=== PATIENT | male | born 1995 | race Caucasian/White ===

== ENCOUNTER → 2019-08-13 16:16 | Outpatient (CLI) | payer OTHER, SELFPAY ==
[2019-08-13 17:07] LABS: Absolute Lymphocyte Count 2.71 X10^3/uL (0.83-4.51); Absolute Neutrophil Count 4.6 X10^3/uL (2.0-7.7); Basophil# 0.07 X10^3/uL; Basophil% 0.9 % (0-1); Eosinophil# 0.21 X10^3/uL; Eosinophils% 2.6 % (0-5); Hematocrit 43.8 % (40-54); Hemoglobin 14.4 g/dL (13.0-16.5); Lymphocyte # 2.71 X10^3/ul (4.0); Lymphocyte % 33.5 % (19-41); Mean Corp Hgb Conc 32.9 g/dL (32-36); Mean Corpuscular Hgb 28.3 pg (27.0-32.0); Mean Corpuscular Volume 86.1 fL (80-94); Mean Platelet Vol. 9.1 fl (6.2-12.0); Monocyte# 0.52 X10^3/uL; Monocyte% 6.4 % (0-10); NRBC Flagged by Analyzer 0 % (0-5); Neutrophil # 4.55 X10^3/uL (2.7-7.7); Neutrophil % 56.1 % (47-70); Platelet Count 379 K/mm3 (150-450); Red Blood Count 5.09 M/mm3 (4.6-6.2); White Blood Count 8.1 K/mm3 (4.4-11.0)
[2019-08-13 18:03] LABS: T3 Total - Triiodothyronine 1.45 ng/mL (0.6-1.81); T4 Total, Thyroxin 10.6 ug/dL (4.5-12.1); Thyroid Stim Hormone (TSH) 1.34 uIU/mL (0.358-3.74)
== END ==
DX: R00.2 Palpitations (principal)
CPT/HCPCS: 36415; 84436; 84443; 84480; 85025

== ENCOUNTER → 2019-08-14 16:08 | Outpatient (CLI) | payer OTHER, SELFPAY ==
[2019-08-14 13:00] VITALS: BMI 37.4
== END ==
PROVIDERS: Referring Provider Specialist; Visit Provider Specialist
DX: I10 Essential (primary) hypertension (principal); R00.2 Palpitations; R06.02 Shortness of breath
CPT/HCPCS: 36415

== ENCOUNTER → 2019-08-17 10:08 | Outpatient (REF) | payer OTHER, SELFPAY ==
[2019-08-14 13:00] VITALS: BMI 37.4
== END ==
LOC: CVS 10:08
PROVIDERS: Referring Provider Specialist; Visit Provider Specialist
DX: R00.2 Palpitations (principal); R03.0 Elevated blood-pressure reading, without diagnosis of hypertension
CPT/HCPCS: 93270; 93271

== ENCOUNTER → 2019-08-23 13:48 | Outpatient (CLI) | payer OTHER, SELFPAY ==
[2019-08-14 13:00] VITALS: BMI 37.4
--- NOTE | 2019-08-23 13:49 | ECHOD_ITS ---
Reason For Study: Palps, HTN Procedure This was a 2D Doppler, Color Flow transthoracic echocardiogram. Exam performed in department. Left Ventricle Normal LV size. The estimated ejection fraction is 70 %. No evidence for diastolic dysfunction. No regional wall motion abnormalities noted. Right Ventricle Normal RV size. Normal systolic function. Atria Normal left atrium. Normal right atrium. No doppler evidence for ASD. Mitral Valve There is no mitral valve stenosis. No mitral valve insufficiency. Tricuspid Valve There is no tricuspid stenosis. Unable to estimate RV systolic pressure due to inadequate jet, pulmonary artery pressure probably normal. Aortic Valve Trisinus/trileaflet aortic valve. There is no aortic stenosis. No aortic valve insufficiency. Pulmonic Valve There is no pulmonic valvular stenosis. No pulmonic valve insufficiency. Great Vessels Normal aortic root. Pericardium/Pleural No pericardial effusion. MMode/2D Measurements & Calculations LVIDd: 5.1 cm IVSd: 0.99 cm Ao root diam: 2.9 cm LVIDs: 3.0 cm LVPWd: 1.2 cm RVDd: 3.5 cm FS: 41.3 % LAV(MOD-bp): 40.4 ml LA A4 area: 16.0 cm2 LA dimension(2D): 3.8 cm LAV(MOD-bp) Indexed: 17.1 ml/m2 LAV(MOD-sp2): 40.9 ml LAV(MOD-sp4): 38.8 ml RA A4 area: 15.1 cm2 Doppler Measurements & Calculations MV E max valdo: 85.4 cm/sec Lat Peak E' Valdo: 18.7 cm/sec Med Peak E' Valdo: 12.8 cm/sec MV A max valdo: 65.7 cm/sec E/E' lat: 4.6 E/E' med: 6.7 MV E/A: 1.3 Ao V2 max: 161.7 cm/sec LV V1 max: 141.3 cm/sec PA V2 max: 160.6 cm/sec Ao max P.5 mmHg LV V1 max P.0 mmHg Interpretation Summary The estimated ejection fraction is 70 %. No evidence for diastolic dysfunction. Ordering Physician: Bruce Gastelum Referring Physician: Bruce Gastelum Performed By: June Angulo, [facility]
== END ==
PROVIDERS: Referring Provider Specialist; Visit Provider Specialist
DX: I10 Essential (primary) hypertension (principal); R00.2 Palpitations
CPT/HCPCS: 93306

== ENCOUNTER → 2020-02-23 11:00 | Outpatient (CLI) | payer OTHER, SELFPAY ==
[2019-10-16 13:57] VITALS: BMI 38.2
[2020-02-23 11:37] LABS: Absolute Lymphocyte Count 2.29 X10^3/uL (0.83-4.51); Basophil# 0.06 X10^3/uL; Eosinophils% 3.3 % (0-5); Hematocrit 38.7 % (40-54); Hemoglobin 12.3 g/dL (13.0-16.5); Lymphocyte # 2.29 X10^3/ul (4.0); Lymphocyte % 37.5 % (19-41); Mean Corp Hgb Conc 31.8 g/dL (32-36); Mean Corpuscular Hgb 27.6 pg (27.0-32.0); Mean Corpuscular Volume 86.8 fL (80-94); Mean Platelet Vol. 9.2 fl (6.2-12.0); Monocyte# 0.58 X10^3/uL; Monocyte% 9.5 % (0-10); NRBC Flagged by Analyzer 0 % (0-5); Neutrophil # 2.97 X10^3/uL (2.7-7.7); Neutrophil % 48.5 % (47-70); Platelet Count 428 K/mm3 (150-450); RBC Distribution Width CV 13.2 % (11.6-14.6); RBC Distribution Width SD 40.4 fl (35.1-43.9); Red Blood Count 4.46 M/mm3 (4.6-6.2); White Blood Count 6.1 K/mm3 (4.4-11.0)
[2020-02-23 12:03] LABS: ALB/GLOB Ratio 1.2 RATIO (0.9-2.4); AST(SGOT) 29 U/L (15-37); Alanine Aminotransfer ALT/SGPT 63 U/L (16-61); Alkaline Phosphatase 66 U/L (45-117); Anion Gap 6 (5-15); BUN 12 mg/dL (7-18); BUN/Creat Ratio 15.2 RATIO (10-20); Chloride 109 mmol/L (98-107); Cholesterol 186 mg/dL (200); Creatinine, Serum 0.79 mg/dL (0.70-1.30); EST Glomerular Filtration Rate 128 mL/min (>60); Est Glom Filt Rate - Afr Amer 155 mL/min (>60); Globulin 3.3 g/dL (2.2-4.2); Glucose 102 mg/dL (74-106); High Density Lipoprotein 38 mg/dL; Potassium 3.9 mmol/L (3.5-5.1); Protein, Total 7.3 g/dL (6.4-8.2); Sodium Level 139 mmol/L (136-145); Triglycerides 89 mg/dL; Very Low Density Lipoprotein 18 mg/dL (5-40)
== END ==
DX: Z00.00 Encounter for general adult medical examination without abnormal findings (principal); I10 Essential (primary) hypertension
CPT/HCPCS: 36415; 80053; 80061; 85025

== ENCOUNTER → 2020-03-19 20:18 | Outpatient (CLI) | payer OTHER, SELFPAY ==
[2019-10-16 13:57] VITALS: BMI 38.2
== END ==
PROVIDERS: Referring Provider Specialist; Visit Provider Specialist
DX: G47.10 Hypersomnia, unspecified (principal); I10 Essential (primary) hypertension; R00.2 Palpitations
CPT/HCPCS: 95810

== ENCOUNTER 2021-01-16 06:06 | Day surgery (SDC) | payer OTHER, SELFPAY ==
[2020-10-21 13:36] VITALS: BMI 36.7
--- NOTE | 2021-01-09 11:54 | EKG12_ITS ---
Test Reason : PRE OP Blood Pressure : / mmHG Vent. Rate : 058 BPM Atrial Rate : 058 BPM P-R Int : 148 ms QRS Dur : 114 ms QT Int : 396 ms P-R-T Axes : 013 090 025 degrees QTc Int : 388 ms Sinus bradycardia Otherwise normal ECG Confirmed by BROOKS LUNA, ANGIE ([id number]), editor managing director FABIOLA CALLOWAY ([id number]) on 01/12/2021 1:42:59 PM Referred By: John Hampton Confirmed By:ANGIE GUY MD
[2021-01-09 12:24] LABS: Hematocrit 40.2 % (40-54); Hemoglobin 13.2 g/dL (13.0-16.5); Mean Corp Hgb Conc 32.8 g/dL (32-36); Mean Corpuscular Hgb 28.3 pg (27.0-32.0); Mean Corpuscular Volume 86.3 fL (80-94); Mean Platelet Vol. 8.9 fl (6.2-12.0); Platelet Count 405 K/mm3 (150-450); RBC Distribution Width CV 12.6 % (11.6-14.6); RBC Distribution Width SD 39.3 fl (35.1-43.9); Red Blood Count 4.66 M/mm3 (4.6-6.2); White Blood Count 5.7 K/mm3 (4.4-11.0)
[2021-01-09 12:53] LABS: Anion Gap 5 (5-15); BUN 16 mg/dL (7-18); BUN/Creat Ratio 17.9 RATIO (10-20); Calcium,Total 9.4 mg/dL (8.5-10.1); Chloride 107 mmol/L (98-107); EST Glomerular Filtration Rate 110 mL/min (>60); Est Glom Filt Rate - Afr Amer 133 mL/min (>60); Glucose 91 mg/dL (74-106); Potassium 3.9 mmol/L (3.5-5.1); Sodium Level 140 mmol/L (136-145)
[2021-01-16] VITALS (8 sets, daily range): BP systolic 144–166; BP diastolic 70–99; PULSE 71–90; RESP 16–18; TEMP 36.2–36.7; O2SAT 95–99; BMI 34.2
[2021-01-16] MEDS: Lactated Ringers 1,000 ML 100 ML IV (06:40)
--- NOTE | 2021-01-16 07:30 | SEP_PTH ---
PATIENT: EDUIN VACA [place] [facility] [id number] AGE/SX: 25/M ROOM: RE01/16/[address]: Dr. John Hampton MD : [id number] BED: DIS: 01/16/2021 SPEC #: [id number] RECD: 01/16/21 11:10 STATUS: GIANFRANCO MITCHELL #: [id number] LEXII: 01/16/21 07:[address]: John Hampton DEPT: SURGICAL PATHOLOGY RECD BY: Mario Alberto Hall Tissues: Nasal septum, NOS Procedures: Decalcification bone/plaque Surgery Specimen Level III HEADER OPERATION: Septoplasty, submucous resection inferior turbinate PRE-OP DIAGNOSIS: Deviated nasal septum, hypertrophy of nasal turbinates TISSUE SUBMITTED: Nasal septum bone and tissue MICROSCOPIC DIAGNOSIS Nasal septum bone and tissue, septoplasty: Fragments of hyaline cartilage and bone with focal reactive change (clinically deviated septum). AM:howard 01/21/2021 MICROSCOPIC DESCRIPTION Slides are reviewed. GROSS DESCRIPTION Received in fixative is one container labeled with the patient's name and designated nasal septum bone and tissue. The specimen consists of multiple irregular fragments of bone, cartilage and soft tissue that in aggregate measure 4 x 4 x 1 cm. Cath Lab Tech tissue is submitted in two cassettes after decalcification. / SJ:howard 01/16/21 TC:5 CPT: 61775, 54782
[2021-01-16] MEDS: Oxymetazoline 0.05% 1 SPRAY SPRAY.BTL 15 SPRAY (08:00)
[2021-01-16] MEDS: Bacitracin 500 UNITS/GM PACKET (08:00)
[2021-01-16] MEDS: Lidocaine 1% /Epi 1:100 (20ml) 20 ML Vial (08:00)
[2021-01-16] MEDS: Lidocaine 4% 50 ML Bottle (08:00)
--- NOTE | 2021-01-16 08:26 | PCM.OPRPT ---
Problems Associated Problem List Diagnoses (1) Deviated nasal septum: (2) Hypertrophy of both inferior nasal turbinates: Report of Operation Date of Procedure: 01/16/21 Pre-Operative Diagnosis: Deviated nasal septum, hypertrophy inferior nasal turbinates Post-Operative Diagnosis: Same Surgery/Procedure Performed:: Septoplasty, submucous resection of inferior nasal turbinates Description of Surgical Findings:: Black is a 25-year-old male with complaints of persistent nasal obstruction despite appropriate medical therapy. Physical exam shows significant deviation nasal septum with hypertrophied inferior nasal turbinates and given the exacerbation of his nasal obstruction with his sleep apnea management surgical treatment for relief was offered and he was eager to proceed. The risks, alternatives, potential complications, and benefits were discussed at length and any questions answered to the patient and/or caregiver's satisfaction. Witnessed informed consent was obtained in the office, and the patient and/or caregiver was agreeable to proceed. Procedure went as follows: The patient was identified in the preoperative holding and brought to the operating room, was placed under general anesthesia and intubated. When appropriate anesthesia was obtained, pledgets soaked in a 50-50 mixture of oxymetazoline and 4% topical lidocaine were placed to decongest the nasal mucosa. The nasal septum was then injected beginning on the left side with 1% lidocaine with 100,000 epinephrine for a total of 4 mL. The pledgets were then removed and the left nasal cavity examined. There was noted to be significant nasal septal deviation to the right with posterior left septal spur. Using a 15 blade scalpel, a hemitransfixion incision was then made on the left side and using the Alexis elevator a subperichondrial/periosteal flap was elevated. The septum was then transected at the bony cartilaginous junction and a similar flap raised on the contralateral side. Using a Yair forceps, the septum was then sharply transected superiorly and the deviated portions removed with a Jens forceps. Any inferior bony spur was then removed with a chisel allowing for midline placement of the nasal septum. The hemitransfixion incision was then closed with interrupted 4-0 chromic gut suture followed by a 4-0 plain quilting suture to reapproximate the mucosal flaps. Attention was then turned to the inferior nasal turbinates. Beginning on the left side, the anterior aspect of the inferior turbinate was then injected with 1% lidocaine with 100,000 epinephrine for a total of 2.5 mL bilaterally. Again beginning on the left side a 15 blade scalpel was used to create a stab incision in the anterior aspect of the turbinate. A caudal elevator was then used to elevate a submucosal plane. Using the microdebrider, the anterior bony and intervening submucosal tissue was then removed resulting in reduction of the inferior turbinate. Similar procedure was then completed on the contralateral side. Ashton splints were then applied after coating with bacitracin ointment and secured to the columella with a single 3-0 Prolene suture. The patient was then returned to anesthesia, was revived and extubated having tolerated the procedure well without complications. Surgeon: John Hampton Type of Anesthesia: General Anesthesiologist: Matheus Meredith Special Medications: none Specimen's removed: septal and turbinate contents Drains: none Estimated Blood Loss (mL): 25 mL Fluids Replaced: 800 mL Grafts/Implants Used: Ashton splints Complications None Admit VTE Documentation VTE Present on Admission: No VTE Mechan Device Prophylaxis: SCD's VTE Pharm Prophylaxis ordered?: No Reason prophylaxis not ordered:: Procedure Not Indicated
--- NOTE | 2021-01-16 08:32 | DCINST_ITS ---
Discharge Instructions Diet Discharge Diet: No restrictions Activity Discharge Activity: Return to Normal Activity Dressing / Incision Call your doctor if your incision/area has: Sudden Increased Bleeding and Increased Pain/ Swelling Call your doctor if you observe: Fever of 101 or Higher and Uncontrolled pain Follow Up Care Please Follow Up With: John Hampton MD When: 1 week Test Results: Test results from this visit will be discussed in further detail at your follow-up appointment, if applicable. Discharge Plan Admission Primary Reason for Your Visit: Deviated nasal septum, hypertrophy inferior t urbinates Attending Provider: John Hampton Discharge Orders/Prescriptions Prescriptions: New acetaminophen 500 mg Tablet 500 mg PO Q4H PRN PRN (Reason: Pain Score 1-5/10) Qty: 0 RF: 0 ibuprofen 200 mg Tablet 400 mg PO Q6H PRN PRN (Reason: Pain Score 4-10/10) Qty: 0 RF: 0 Continued rizatriptan [Maxalt] 10 mg tablet 10 mg PO ONCE PRN (Reason: migraines) RF: 0 carvedilol 12.5 mg tablet 12.5 mg PO BID Qty: 60 RF: 11 amlodipine 10 mg tablet 10 mg PO DAILY Qty: 30 RF: 11 Referrals / Follow Up: JOYCE CORONADO [Other] Disposition Discharge Orders: Discharge Patient (Routine); Ordered 01/16/21 Ordered By: Dr. John Hampton
[2021-01-16] MEDS: Ibuprofen 200 MG Tablet 400 MG PO (10:09)
== END 2021-01-16 11:12 ==
LOC: SDC 06:06 → AC 06:06
PROVIDERS: Anesthesiology; Referring Provider Otolaryngology; Visit Provider Otolaryngology
PROC: (CPT 30520; principal; 2021-01-16 07:15)
DX: J34.2 Deviated nasal septum (principal); J34.3 Hypertrophy of nasal turbinates; I10 Essential (primary) hypertension; G43.909 Migraine, unspecified, not intractable, without status migrainosus; G47.33 Obstructive sleep apnea (adult) (pediatric); Z79.899 Other long term (current) drug therapy
CPT/HCPCS: 30140; 30520; 36415; 80048; 85027; 88304; 88311; 93005; J7120; J2405

== ENCOUNTER 2022-09-12 10:11 | Emergency (ER) | payer OTHER, SELFPAY ==
[2022-09-12 10:12] VITALS: BP 126/75; PULSE 139; RESP 18; TEMP 36.6; O2SAT 97; BMI 37.6
--- NOTE | 2022-09-12 10:28 | EX.ED.DYSGE1 ---
HPI <DAVID Seo - Last Filed: 09/12/22 12:08> History of Present Illness Chief Complaint: Nausea/Vomiting/Diarrhea Narrative Narrative: 26-year-old male with history of hypertension presents to the emergency department with complaints of nausea, vomiting, diarrhea. Patient states that roughly around 1 AM this morning, he woke up feeling nauseous, had multiple episodes of emesis, diarrhea. Patient states that he was unable to keep water down. While he was in the shower today to feel better he felt lightheaded. He denies any chest pain. Denies any blood in stool or vomit. Denies any sick contacts. Denies any recent antibiotic use. Patient did eat a burger, with 1 beer yesterday, his had something similar, she is not ill today. PFS <DAVID Seo - Last Filed: 09/12/22 12:08> [facility] Medical History Alcohol use Cardiology follow-up encounter Essential hypertension History of kidney stones Hypersomnolence Migraines Non-smoker Palpitations Seasonal allergies Sleep apnea Wears contact lenses Home Medications rizatriptan 10 mg tablet (Maxalt) 10 mg PO ONCE PRN migraines 08/14/19 [History Last Taken Unknown] acetaminophen 500 mg tablet 500 mg PO Q4H PRN PRN Pain Score 1-5/10 #0 tabs 01/16/21 [Rx Last Taken Unknown] ibuprofen 200 mg tablet 400 mg PO Q6H PRN PRN Pain Score 4-10/10 #0 tabs 01/16/21 [Rx Last Taken Unknown] amlodipine 10 mg tablet 10 mg PO DAILY #90 tabs 02/02/22 [Rx Last Taken Unknown] lisinopril 10 mg tablet 10 mg PO DAILY #30 tabs 03/13/22 [Rx Last Taken Unknown] carvedilol 12.5 mg tablet 18.75 mg PO BID #270 tabs 06/15/22 [Rx Last Taken Unknown] dicyclomine 20 mg tablet 20 mg PO TID #20 tabs 09/12/22 [Rx Last Taken Unknown] ondansetron 4 mg disintegrating tablet 4 mg PO Q8H PRN PRN Nausea #10 tabs 09/12/22 [Rx Last Taken Unknown] Allergy/AdvReac Type Severity Reaction Status Date / Time hydromorphone [From Dilaudid] Allergy Severe Unknown Verified 09/12/22 10:14 pollen extracts Allergy Severe Unknown Verified 09/12/22 10:14 Family History Sister Hypertension Brother Hypertension Mother Hypertension Heart disease Father Hypertension Surgical History History of tonsillectomy (~2016) Hx of nasal septoplasty Social History Smoking Status: Never smoker alcohol intake: current alcohol intake frequency: a few times a month substance use type: does not use caffeine: Yes Type: coffee Number of servings: 1 ROS <DAVID Seo - Last Filed: 09/12/22 12:08> ROS ED ROS Narrative Constitutional: Negative for fever, chills, weight loss, weakness Eyes: Negative for vision loss, vision change, double vision ENT: Negative for any sore throat, ear pain, congestion Cardiovascular: Negative for any chest pain, tightness, palpitations Respiratory: Negative for any cough, sputum production, hemoptysis, dyspnea, dyspnea on exertion, orthopnea Gastrointestinal: Negative for any abdominal pain, constipation, blood in stool, blood in vomit. Positive for nausea, vomiting, diarrhea : Negative for any urinary frequency, dysuria, retention, blood in urine Muscle skeletal: Negative for any muscle joint pain, stiffness, myalgias, arthralgias, neck pain, back pain Neurological: Negative for any headache, syncope, numbness or tingling, dizziness Skin: Negative for any rashes, lumps, itching, abrasions, lacerations Psychiatric: Negative for any depression, anxiety, stress, suicidal ideation, homicidal ideation Hematologic: Negative for any easy bruising, excessive bruising, easy bleeding Allergies: Negative for any eczema, hives, rash EXAM <DAVID Seo - Last Filed: 09/12/22 12:08> Physical Exam Narrative Exam Narrative: Vital signs reviewed. Patient appears generally well, patient's tachycardic. Patient vital signs remained stable. HEET: Head normocephalic atraumatic, TMs clear bilaterally. Posterior pharynx is clear, moist mucous membranes. Nares clear bilaterally. Neck: Supple with no lymphadenopathy or tenderness. No signs of meningismus, negative jolt sign. Cardiac: Regular rate and rhythm no murmurs gallops or rubs, equal peripheral pulses bilaterally. Respiratory: Lungs clear to auscultation bilaterally. No chest tenderness. Abdomen: Soft, nontender, nondistended. No abdominal bruit or pulsatile masses. No hepatosplenomegaly Extremities: No peripheral edema, no signs of gross trauma or deformity. Active full range of motion of all extremities. Neuro: Cranial nerves II through XII intact, no focal neurological deficits. Skin: Clean dry and intact with no rash, purpura, petechiae, vesicles or pustules. Backs/flank: No CVA tenderness, no midline spinal tenderness, no deformity. Psych: Normal mood and affect. No SI, HI or acute psychosis. Const Vital Signs: 09/12/22 10:12 09/12/22 11:41 09/12/22 12:41 Temperature 97.9 F Temperature Source Temporal Pulse Rate 139 H 115 H 120 H Respiratory Rate 18 16 16 Blood Pressure 126/75 H 129/70 H 137/79 H Blood Pressure Mean 92 89 Pulse Ox 97 99 97 Oxygen Delivery Method Room Air Room Air HEENT Reports moist mucous membranes and dry mucous membranes Mouth ED: Yes dry mucous membranes Mouth: dry mucous membranes <Dr. Temo Leyva DO - Last Filed: 09/12/22 15:31> Physical Exam Const Vital Signs: 09/12/22 10:12 09/12/22 11:41 09/12/22 12:41 Temperature 97.9 F Temperature Source Temporal Pulse Rate 139 H 115 H 120 H Respiratory Rate 18 16 16 Blood Pressure 126/75 H 129/70 H 137/79 H Blood Pressure Mean 92 89 Pulse Ox 97 99 97 Oxygen Delivery Method Room Air Room Air [facility] <DAVID Seo - Last Filed: 09/12/22 12:08> [facility] Lab Data Labs: Laboratory Results - last 24 hr 09/12/22 09/12/22 10:25 10:25 WBC 12.1 H RBC 5.44 Hgb 15.1 Hct 46.4 MCV 85.3 MCH 27.8 MCHC 32.5 RDW Std Deviation 40.0 RDW Coeff of Haydee 13.1 Plt Count 386 MPV 9.2 Immature Gran % (Auto) 0.400 Neut % (Auto) 91.6 H Lymph % (Auto) 3.6 L Woods % (Auto) 4.0 Eos % (Auto) 0.2 Baso % (Auto) 0.2 Absolute Neuts (auto) 11.1 H Absolute Lymphs (auto) 0.43 L Nucleated RBC % 0 Differential Comment SCANNED Sodium 140 Potassium 3.9 Chloride 110 H Carbon Dioxide 21.0 Anion Gap 9 BUN 23 H Creatinine 1.15 Estim Creat Clear Calc 103.67 Est GFR (MDRD) Af Amer 98 Est GFR (MDRD) Non-Af 81 BUN/Creatinine Ratio 20.0 Glucose 131 H Calcium 9.9 Total Bilirubin 0.60 AST 30 ALT 88 H Alkaline Phosphatase 62 Total Protein 8.3 H Albumin 4.6 Globulin 3.7 Albumin/Globulin Ratio 1.2 Lipase 63 L Treatment and Re-Evaluation Narrative: Patient generally appears well, patient's vital signs are stable other than patient being tachycardic on initial exam. Patient presents emerged part with nausea, vomiting, diarrhea since 1 AM. Patient abdominal exam was benign, patient will receive IV fluids, IV Toradol, Zofran, IM Bentyl. He will receive basic abdominal laboratory studies. Patient appears generally well, patient is in no distress. Patient is slightly tachycardic, dry appearing. Patient did receive a abdominal work-up. Consider a CT scan of the abdomen pelvis however patient had minimal to no pain in his abdominal exam. Patient CBC showed a leukocytosis of white blood count 12.1, this can be considered secondary to a gastroenteritis, acute nausea vomiting diarrhea. Patient's chemistry panel was unremarkable. Patient's ALT was elevated at 88, this is decreased from and March 2021. Lipase was slightly low at 63. Patient received IV fluids, IV Zofran, IV Toradol as well as IM Bentyl. On reassessment, the patient was feeling much better. Patient's vital signs normalized, he was able to take by mouth fluids. He feels stable to go home. Patient is also in the room with his , she was also given discharge instructions. The patient be given Zofran as well as Bentyl for home. He is instructed to maintain hydration. He was given return precautions. Patient is happy with the plan of care, he stable for discharge. <Dr. Temo Leyva, DO - Last Filed: 09/12/22 15:31> MDM MDM Narrative Medical decision making narrative: Interventions / MDM: Differential diagnosis:Gastroenteritis, viral syndrome, Diagnosis considered but do not suspect: C. difficile, however no risk factors My EKG interpretation: N/A Imaging independently reviewed and interpreted by myself: N/A External documents reviewed: N/A Test considered but not ordered:N/A ED course: Attending note: Patient seen and evaluated with servomechanism designer. I perform my own [id number] evaluation. I agree with the plan of work-up. Vomiting diarrhea since 1 PM. No recent antibiotics. Nonbloody. Diarrhea every 15 to 20 minutes. Vomiting does not times. He ate out yesterday ate a salad and a sandwich different from his significant other. No sick contacts. Exam soft abdomen tachycardic, patient treated with IV fluids antiemetics. Labs are obtained and are normal. Clinically feeling better on reexamination tolerating oral fluids. Attempted obtaining stool however unable to obtain in the ED. Prescription for antiemetics return precautions. Re-evaluation: stable And improved Disposition discussed with patient/family/significant other: Patient and significant other Case discussed with consulting clinician: N/A Lab Data Attestation: I reviewed the patient's lab results. Labs: Laboratory Results - last 24 hr 09/12/22 09/12/22 10:25 10:25 WBC 12.1 H RBC 5.44 Hgb 15.1 Hct 46.4 MCV 85.3 MCH 27.8 MCHC 32.5 RDW Std Deviation 40.0 RDW Coeff of Haydee 13.1 Plt Count 386 MPV 9.2 Immature Gran % (Auto) 0.400 Neut % (Auto) 91.6 H Lymph % (Auto) 3.6 L Woods % (Auto) 4.0 Eos % (Auto) 0.2 Baso % (Auto) 0.2 Absolute Neuts (auto) 11.1 H Absolute Lymphs (auto) 0.43 L Nucleated RBC % 0 Differential Comment SCANNED Sodium 140 Potassium 3.9 Chloride 110 H Carbon Dioxide 21.0 Anion Gap 9 BUN 23 H Creatinine 1.15 Estim Creat Clear Calc 103.67 Est GFR (MDRD) Af Amer 98 Est GFR (MDRD) Non-Af 81 BUN/Creatinine Ratio 20.0 Glucose 131 H Calcium 9.9 Total Bilirubin 0.60 AST 30 ALT 88 H Alkaline Phosphatase 62 Total Protein 8.3 H Albumin 4.6 Globulin 3.7 Albumin/Globulin Ratio 1.2 Lipase 63 L Discharge Plan Triage Chief Complaint: Nausea/Vomiting/Diarrhea ED Midlevel Provider: Daniel Castorena ED Provider: Temo Leyva Dx/Rx/DC Orders Clinical Impression: Gastroenteritis, Increased nausea and vomiting, Diarrhea, Sinus tachycardia Instructions: ED Gastritis (Adult), ED Gastroenteritis, Noninfectious Prescriptions: New ondansetron 4 mg tablet,disintegrating 4 mg PO Q8H PRN PRN (Reason: Nausea) Qty: 10 0RF dicyclomine 20 mg tablet 20 mg PO TID Qty: 20 0RF No Action rizatriptan [Maxalt] 10 mg tablet 10 mg PO ONCE PRN (Reason: migraines) Rx Instructions: may repeat once in >=2 hours lisinopril 10 mg tablet 10 mg PO DAILY Qty: 30 11RF acetaminophen 500 mg Tablet 500 mg PO Q4H PRN PRN (Reason: Pain Score 1-5/10) Qty: 0 0RF ibuprofen 200 mg Tablet 400 mg PO Q6H PRN PRN (Reason: Pain Score 4-10/10) Qty: 0 0RF amlodipine 10 mg tablet 10 mg PO DAILY Qty: 90 3RF carvedilol 12.5 mg tablet 18.75 mg PO BID Qty: 270 3RF Rx Instructions: must administer with a meal/food Primary Care Provider: JOYCE CORONADO Referrals: [facility] Doctor,Out of [Non-Staff] - Activity Restrictions/Additional Instructions: Please advance your diet as tolerated. Use medications as needed. Continue to follow-up. Disposition Disposition: Home, Self Care Discharge Date/Time: 09/12/22 12:43
[2022-09-12] MEDS: Dicyclomine 20 MG/2 ML Vial IM (10:35)
[2022-09-12] MEDS: 0.9% Normal Saline 1,000 ML 1000 ML IV (10:35)
[2022-09-12] MEDS: Ondansetron 4 MG/2 ML Vial IV (10:35)
[2022-09-12] MEDS: Ketorolac 15 MG/ML Vial IV (10:35)
[2022-09-12 10:45] LABS: Absolute Lymphocyte Count 0.43 X10^3/uL (0.83-4.51); Absolute Neutrophil Count 11.1 X10^3/uL (2.0-7.7); Basophil# 0.03 X10^3/uL; Basophil% 0.2 % (0-1); Eosinophil# 0.03 X10^3/uL; Eosinophils% 0.2 % (0-5); Hematocrit 46.4 % (40-54); Hemoglobin 15.1 g/dL (13.0-16.5); Lymphocyte # 0.43 X10^3/ul (0.83-4.51); Lymphocyte % 3.6 % (19-41); Mean Corp Hgb Conc 32.5 g/dL (32-36); Mean Corpuscular Hgb 27.8 pg (27.0-32.0); Mean Corpuscular Volume 85.3 fL (80-94); Mean Platelet Vol. 9.2 fl (6.2-12.0); Monocyte# 0.48 X10^3/uL; NRBC Flagged by Analyzer 0 % (0-5); Neutrophil # 11.07 X10^3/uL (2.7-7.7); Neutrophil % 91.6 % (47-70); POSITIVE DIFFERENTIAL YES; Platelet Count 386 K/mm3 (150-450); RBC Distribution Width CV 13.1 % (11.6-14.6); Red Blood Count 5.44 M/mm3 (4.6-6.2); White Blood Count 12.1 K/mm3 (4.4-11.0)
[2022-09-12 10:54] LABS: Differential Indicated SCAN CRITERIA MET
[2022-09-12 10:56] LABS: ALB/GLOB Ratio 1.2 RATIO (0.9-2.4); AST(SGOT) 30 U/L (15-37); Alanine Aminotransfer ALT/SGPT 88 U/L (16-61); Albumin, Serum 4.6 g/dL (3.2-5.0); Alkaline Phosphatase 62 U/L (45-117); Anion Gap 9 (5-15); BUN 23 mg/dL (7-18); Calcium,Total 9.9 mg/dL (8.5-10.1); Chloride 110 mmol/L (98-107); Creatinine, Serum 1.15 mg/dL (0.70-1.30); EST Glomerular Filtration Rate 81 mL/min (>60); Est Glom Filt Rate - Afr Amer 98 mL/min (>60); Estimated Creatinine Clearance 103.67 ml/min; Globulin 3.7 g/dL (2.2-4.2); Glucose 131 mg/dL (74-106); Lipase 63 U/L (73-393); Potassium 3.9 mmol/L (3.5-5.1); Protein, Total 8.3 g/dL (6.4-8.2); Sodium Level 140 mmol/L (136-145)
[2022-09-12 11:10] LABS: Differential Comment SCANNED
[2022-09-12] MEDS: 0.9% Normal Saline 1,000 ML 999 ML IV (11:40)
[2022-09-12 11:41] VITALS: BP 129/70; PULSE 115; RESP 16; O2SAT 99
[2022-09-12 12:41] VITALS: BP 137/79; PULSE 120; RESP 16; O2SAT 97
== END 2022-09-12 12:43 | disposition home or self-care (01) ==
PROVIDERS: Nurse Practitioner; Emergency Provider Emergency Medicine; PCP Nurse Practitioner Family; Visit Provider Emergency Medicine
DX: K52.9 Noninfective gastroenteritis and colitis, unspecified (principal); R00.0 Tachycardia, unspecified; I10 Essential (primary) hypertension; R11.2 Nausea with vomiting, unspecified
CPT/HCPCS: 80053; 83690; 85025; 96361; 96372; 96374; 96375; 99283; J7030; A4216; J2405

== ENCOUNTER → 2023-06-09 | Outpatient (CLI) | payer OTHER, SELFPAY ==
[2023-06-09 10:23] LABS: Hematocrit 45.1 % (40-54); Hemoglobin 14.5 g/dL (13.0-16.5); Mean Corp Hgb Conc 32.2 g/dL (32-36); Mean Corpuscular Hgb 28.2 pg (27.0-32.0); Mean Corpuscular Volume 87.6 fL (80-94); Mean Platelet Vol. 8.8 fl (6.2-12.0); Platelet Count 405 K/mm3 (150-450); RBC Distribution Width CV 12.2 % (11.6-14.6); RBC Distribution Width SD 39.2 fl (35.1-43.9); Red Blood Count 5.15 M/mm3 (4.6-6.2); White Blood Count 6.9 K/mm3 (4.4-11.0)
[2023-06-09 10:55] LABS: AST(SGOT) 29 U/L (15-37); Alanine Aminotransfer ALT/SGPT 85 U/L (16-61); Albumin, Serum 4.2 g/dL (3.2-5.0); Alkaline Phosphatase 67 U/L (45-117); Anion Gap 5 (5-15); BUN 14 mg/dL (7-18); Calcium,Total 10.1 mg/dL (8.5-10.1); Chloride 105 mmol/L (98-107); Cholesterol 225 mg/dL (200); Creatinine, Serum 0.82 mg/dL (0.70-1.30); EST Glomerular Filtration Rate 118 mL/min (>60); Est Glom Filt Rate - Afr Amer 143 mL/min (>60); Glucose 107 mg/dL (74-106); High Density Lipoprotein 38 mg/dL; Potassium 4.2 mmol/L (3.5-5.1); Protein, Total 8.2 g/dL (6.4-8.2); Sodium Level 137 mmol/L (136-145); Triglycerides 166 mg/dL; Very Low Density Lipoprotein 33 mg/dL (5-40)
--- NOTE | 2023-06-09 14:30 | RAD_ITS ---
STUDY: X-RAY - ABDOMEN/PELVIS REASON FOR EXAM: Male, 27 years old. Flank pain. TECHNIQUE: Frontal and decubitus images of the abdomen and pelvis were obtained on 4 images. COMPARISON: None. FINDINGS: Normal visualized lung bases. Normal bowel gas pattern with air seen to the rectum. Moderate amount of feces in the colon. The visualized liver, spleen and kidneys are grossly normal in size and morphology. Normal soft tissue structures. Normal visualized osseous structures. RAD/Abdomen Plus Oblique IMPRESSION: No acute abnormality. No abnormal calcifications. Electronically Signed: Blayne Porras MD at 15:16 EST ,
== END | disposition home or self-care (01) ==
LOC: LAB 09:56
PROVIDERS: PCP Nurse Practitioner Family; Referring Provider Nurse Practitioner Family; Visit Provider Nurse Practitioner Family
DX: Z00.00 Encounter for general adult medical examination without abnormal findings (principal); R10.9 Unspecified abdominal pain
CPT/HCPCS: 36415; 74019; 80053; 80061; 85027

== ENCOUNTER → 2023-08-09 | Outpatient (CLI) | payer OTHER, SELFPAY ==
[2023-08-09 16:37] LABS: Bacteria 0 SEEN /hpf (None Seen); Mucous, Urine 0 SEEN /hpf (<or=2+); Red Blood Cells-Urine 0 SEEN /hpf (0-5); Squamous Epithelial Cells - UA 0 SEEN /hpf (0-5); White Blood Cells 0 SEEN /hpf (0-5)
[2023-08-09 17:21] LABS: Color, Urine Yellow (Yellow); Glucose, Dipstick Normal (Normal); Ketone-Dipstick Negative (Negative); Leukocyte Esterase-Dipstick Negative /ul (Negative); Nitrite-Dipstick Negative (Negative); Occult Blood-Urine 25 /ul (Negative); Protein-Dipstick Negative (Negative); Specific Gravity, Urine 1.025 (1.002-1.030); Urine Bilirubin Dipstick Negative (Negative); Urine Clarity Cloudy (Clear); Urine Urobilinogen Normal (Normal)
[2023-08-09 17:27] LABS: Amorphous Sediment 4+; Calcium Oxalate Crystals Ur 1+ /hpf (<or=2+)
--- OUTSIDE RECORDS SUMMARY | 2023-08-09 17:53 | XMS RPT_ITS | CCD ---
Author Name Unknown Address [address] [facility] [address] [place] [address] Organization [facility] Care Team Providers Care Post Acute Care Registered Nurse Name Role Phone Noling, Laurie L Attending Unavailable Kotnik, Laurie A Primary Care Unavailable Noling, Laurie L Attending Unavailable Boutsicaris, Weston Rodriguez Attending Unavailable Kotnik, Laurie A Primary Care Unavailable Kotnik, Laurie A Primary Care Unavailable Noling, Laurie L Attending Unavailable Noling, Laurie L Primary Care Unavailable Noling FORECLOSURE CLERK.OUTPATIENT PHYSICAL THERAPIST ASSISTANT, Laurie L Primary Care Provider Noling FORECLOSURE CLERK.OUTPATIENT PHYSICAL THERAPIST ASSISTANT, Laurie L Primary Care Provider NOLING, LAURIE L Attending Unavailable NOLING, LAURIE L Primary Care Unavailable NOLING, LAURIE L Attending Unavailable NOLING, LAURIE L Referring Unavailable NOLING, LAURIE L Primary Care Unavailable Allergies Allergy Classification Reported Allergen(s) Allergy Type Date of Onset Reaction(s) Facility (7 sources) HYDROmorphone; Translations: [HYDROMORPHONE] Drug Allergy 11-21-2017 Other: See Comments [facility] (5 sources) Pollen; Translations: [POLLEN EXTRACTS] Drug Allergy 11-21-2017 Unknown, Other: See Comments [facility] Medications Completed/Discontinued Medications Medication Drug Class(es) Dates Sig (Normalized) Sig (Original) amLODIPine 10 mg oral tablet (6 sources) Dihydropyridine Calcium Channel Paula Start: 05-06-2022 take 1 tablet by mouth once daily amLODIPine (NORVASC) 10 mg tablet Take 1 tablet by mouth once daily. 0 05/06/2022 Active Problems Active Problems Problem Classification Problem Date Documented Da te Episodic/Chronic Abdominal pain (6 sources) Right lower quadrant pain; Translations: [Right lower quadrant pain] Onset: 08-27-2022 Episodic Essential hypertension (9 sources) Benign essential hypertension; Translations: [Essential (primary) hypertension] Onset: 07-31-2019 Chronic Genitourinary symptoms and ill-defined conditions (1 source) Pyuria; Translations: [Pyuria] 06-09-2023 Episodic Headache; including migraine (7 sources) Migraine; Translations: [Migraine, unspecified, not intractable, without status migrainosus] Onset: 11-21-2017 Chronic Other nutritional; endocrine; and metabolic disorders (8 sources) Severe obesity; Translations: [Morbid (severe) obesity due to excess calories] Onset: 11-21-2017 Chronic Other nutritional; endocrine; and metabolic disorders (1 source) Morbid (severe) obesity due to excess calories; Translations: [Class 2 severe obesity with serious comorbidity and body mass index (BMI) of 37.0 to 37.9 in adult, unspecified obesity type] Onset: 06-09-2023 Chronic Other nutritional; endocrine; and metabolic disorders (1 source) Body mass index (BMI) 37.0-37.9, adult; Translations: [Class 2 severe obesity with serious comorbidity and body mass index (BMI) of 37.0 to 37.9 in adult, unspecified obesity type] Onset: 06-09-2023 Chronic Other nutritional; endocrine; and metabolic disorders (1 source) Abnormal weight gain; Translations: [Abnormal weight gain] Episodic Other upper respiratory disease (6 sources) Seasonal allergic rhinitis; Translations: [Other seasonal allergic rhinitis] Onset: 11-21-2017 06-15-2022 Chronic Unclassified (2 sources) R10.9,R10.11,R31.9, K92.1~ Onset: 12-05-2017 Past or Other Problems Problem Classification Problem Date Documented Date Episodic/Chronic Allergic reactions (6 sources) Hand eczema; Translations: [Dermatitis, unspecified] Onset: 04-10-2018 06-15-2022 Episodic Calculus of urinary tract (6 sources) Kidney stone; Translations: [Calculus of kidney] Onset: 12-05-2017 06-15-2022 Episodic Cardiac dysrhythmias (6 sources) Palpitations; Translations: [Palpitations] Onset: 07-31-2019 06-15-2022 Episodic Hemorrhoids (6 sources) Internal hemorrhoids; Translations: [Other hemorrhoids] Onset: 11-06-2018 06-15-2022 Episodic Immunizations and screening for infectious disease (4 sources) Viral screening status; Translations: [Encounter for screening for other viral diseases] Onset: 08-27-2022 Episodic Other and unspecified benign neoplasm (7 sources) Benign neoplasm of soft tissue; Translations: [Melanocytic nevi, unspecified] Onset: 06-16-2022 Episodic Other liver diseases (6 sources) Elevated levels of transaminase & lactic acid dehydrogenase; Translations: [Elevation of level of transaminase and lactic acid dehydrogenase (LDH)] Onset: 03-26-2021 06-15-2022 Episodic Other screening for suspected conditions (not mental disorders or infectious disease) (3 sources) Patient encounter status; Translations: [Encounter for screening for diabetes mellitus] Onset: 08-27-2022 Episodic Results Test Name Value Interpretation Reference Range Facil ity Vital Signs Date Time Vital Sign Value Performing Clinician Faci lity 06-09-2023 08:10-0500 Body height 179.1 cm Laurie Noling FORECLOSURE CLERK.OUTPATIENT PHYSICAL THERAPIST ASSISTANT Work Phone: [facility] 06-09-2023 08:10-0500 Body temperature 98.4 [degF] Laurie Noling FORECLOSURE CLERK.OUTPATIENT PHYSICAL THERAPIST ASSISTANT Work Phone: [facility] 06-09-2023 08:10-0500 Body weight 120.2 kg Laurie Noling FORECLOSURE CLERK.OUTPATIENT PHYSICAL THERAPIST ASSISTANT Work Phone: [facility] 06-09-2023 08:10-0500 Diastolic blood pressure 92 mm[Hg] Laurie Noling FORECLOSURE CLERK.OUTPATIENT PHYSICAL THERAPIST ASSISTANT Work Phone: [facility] 06-09-2023 08:10-0500 Heart rate 83 /min Laurie Noling FORECLOSURE CLERK.OUTPATIENT PHYSICAL THERAPIST ASSISTANT Work Phone: [facility] 06-09-2023 08:10-0500 Respiratory rate 18 /min Laurie Noling FORECLOSURE CLERK.OUTPATIENT PHYSICAL THERAPIST ASSISTANT Work Phone: [facility] 06-09-2023 08:10-0500 SaO2% (BldA) [Mass fraction] 97 % Laurie Noling FORECLOSURE CLERK.OUTPATIENT PHYSICAL THERAPIST ASSISTANT Work Phone: [facility] 06-09-2023 08:10-0500 Systolic blood pressure 146 mm[Hg] Laurie Noling FORECLOSURE CLERK.OUTPATIENT PHYSICAL THERAPIST ASSISTANT Work Phone: [facility] 08-27-2022 10:12-0500 Body height 180.3 cm Laurie Noling FORECLOSURE CLERK.OUTPATIENT PHYSICAL THERAPIST ASSISTANT Work Phone: [facility] 08-27-2022 10:12-0500 Body weight 124.74 kg Laurie Noling FORECLOSURE CLERK.OUTPATIENT PHYSICAL THERAPIST ASSISTANT Work Phone: [facility] 08-27-2022 10:12-0500 Diastolic blood pressure 90 mm[Hg] Laurie Noling FORECLOSURE CLERK.OUTPATIENT PHYSICAL THERAPIST ASSISTANT Work Phone: [facility] 08-27-2022 10:12-0500 Heart rate 76 /min Laurie Noling FORECLOSURE CLERK.OUTPATIENT PHYSICAL THERAPIST ASSISTANT Work Phone: [facility] 08-27-2022 10:12-0500 SaO2% (BldA) [Mass fraction] 99 % Laurie Noling FORECLOSURE CLERK.OUTPATIENT PHYSICAL THERAPIST ASSISTANT Work Phone: [facility] 08-27-2022 10:12-0500 Systolic blood pressure 144 mm[Hg] Laurie Noling FORECLOSURE CLERK.OUTPATIENT PHYSICAL THERAPIST ASSISTANT Work Phone: [facility] 06-16-2022 08:21-0500 Body height 180.3 cm Laurie Noling FORECLOSURE CLERK.OUTPATIENT PHYSICAL THERAPIST ASSISTANT Work Phone: [facility] 06-16-2022 08:21-0500 Body weight 126.1 kg Laurie Noling FORECLOSURE CLERK.OUTPATIENT PHYSICAL THERAPIST ASSISTANT Work Phone: [facility] 06-16-2022 08:21-0500 Diastolic blood pressure 82 mm[Hg] Laurie Noling FORECLOSURE CLERK.OUTPATIENT PHYSICAL THERAPIST ASSISTANT Work Phone: [facility] 06-16-2022 08:21-0500 Heart rate 91 /min Laurie Noling FORECLOSURE CLERK.OUTPATIENT PHYSICAL THERAPIST ASSISTANT Work Phone: [facility] 06-16-2022 08:21-0500 SaO2% (BldA) [Mass fraction] 98 % Laurie Noling FORECLOSURE CLERK.OUTPATIENT PHYSICAL THERAPIST ASSISTANT Work Phone: [facility] 06-16-2022 08:21-0500 Systolic blood pressure 144 mm[Hg] Laurie Noling FORECLOSURE CLERK.OUTPATIENT PHYSICAL THERAPIST ASSISTANT Work Phone: [facility] Encounters Encounter Date Encounter Type Care Provider Facility Start: 06-14-2023 Telephone encounter Laurie higuera FORECLOSURE CLERK.OUTPATIENT PHYSICAL THERAPIST ASSISTANT Work Phone: [facility] [place] Procedures Date Procedure Procedure Detail Performing Clinician Start: 06-09-2023 Urnls dip stick/tabl et rgnt auto w/o microscopy Laurie L Nokalen FORECLOSURE CLERK.OUTPATIENT PHYSICAL THERAPIST ASSISTANT Work Phone: Plan of Treatment Date Care Activity Detail Author Start: 10-21-2026 Urine microalbumin profile [facility] Start: 06-09-2024 Annual PCP Team Manual Training Teacher solomon Disease Visit Annual PCP Team Chronic Disease Visit [facility] Start: 08-27-2023 ANNUAL PCP TEAM GUEST HISTORY CLERK SOLOMON DISEASE VISIT ANNUAL PCP TEAM CHRONIC DISEASE VISIT [facility] Start: 06-16-2023 ANNUAL PCP TEAM GUEST HISTORY CLERK SOLOMON DISEASE VISIT ANNUAL PCP TEAM CHRONIC DISEASE VISIT [facility] Start: 06-09-2023 End: 12-06-2023 CBC panel - Blood by Automated count CBC Lab Routine Well adult exam Expected: 06/09/2023, Expires: 12/06/2023 [facility] Work Phone: Immunizations Immunization Date Immunization Notes Care Provider Fa cili 06-06-2023 influenza, injectabl e, quadrivalent, preservative free Laurie Noling FORECLOSURE CLERK.OUTPATIENT PHYSICAL THERAPIST ASSISTANT Work Phone: [facility] 06-17-2022 influenza, seasonal, injectable Laurie Noling FORECLOSURE CLERK.OUTPATIENT PHYSICAL THERAPIST ASSISTANT Work Phone: [facility] Work Phone: 06-17-2022 influenza virus vacc ine, unspecified formulation Laurie Noling FORECLOSURE CLERK.OUTPATIENT PHYSICAL THERAPIST ASSISTANT Work Phone: [facility] 05-06-2021 influenza, seasonal, injectable, preservative free Laurie Noling FORECLOSURE CLERK.OUTPATIENT PHYSICAL THERAPIST ASSISTANT Work Phone: [facility] Work Phone: 08-22-2020 COVID-19 original vaccine, full dose, monovalent (MODERNA) Laurie Noling FORECLOSURE CLERK.[facility] Work Phone: [facility] Work Phone: 07-28-2020 COVID-19 original vaccine, full dose, monovalent (MODERNA) Laurie Noling FORECLOSURE CLERK.[facility] Work Phone: [facility] Work Phone: 05-19-2020 influenza, seasonal, injectable Laurie Noling FORECLOSURE CLERK.[facility] Work Phone: [facility] Work Phone: 07-11-2019 hepatitis B vaccine, adult dosage Laurie Noling FORECLOSURE CLERK.[facility] Work Phone: [facility] Work Phone: 06-04-2019 influenza, seasonal, injectable Laurie Noling FORECLOSURE CLERK.[facility] Work Phone: [facility] Work Phone: 02-07-2019 hepatitis B vaccine, adult dosage Laurie Noling FORECLOSURE CLERK.[facility] Work Phone: [facility] Work Phone: 01-08-2019 hepatitis B vaccine, adult dosage Laurie Noling FORECLOSURE CLERK.[facility] Work Phone: [facility] Work Phone: 10-21-2016 tetanus toxoid, redu aniket diphtheria toxoid, and acellular pertussis vaccine, adsorbed Laurie Noling FORECLOSURE CLERK.[facility] Work Phone: [facility] Work Phone: 06-07-2016 influenza, injectabl e, quadrivalent, preservative free Laurie Noling FORECLOSURE CLERK.[facility] Work Phone: [facility] Work Phone: 05-05-2016 influenza, high dose seasonal, preservative-free Laurie Noling FORECLOSURE CLERK.[facility] Work Phone: [facility] Work Phone: 03-02-2011 human papilloma viru s vaccine, quadrivalent Laurie Noling FORECLOSURE CLERK.[facility] Work Phone: [facility] Work Phone: 10-28-2010 human papilloma viru s vaccine, quadrivalent Laurie Noling FORECLOSURE CLERK.[facility] Work Phone: [facility] Work Phone: 07-27-2010 human papilloma viru s vaccine, quadrivalent Laurie Noling FORECLOSURE CLERK.[facility] Work Phone: [facility] Work Phone: 01-31-2007 meningococcal polysaccharide (groups A, C, Y and W-135) diphtheria toxoid conjugate vaccine (MCV4P) Laurie Noling FORECLOSURE CLERK.[facility] Work Phone: [facility] Work Phone: 01-31-2007 tetanus toxoid, redu aniket diphtheria toxoid, and acellular pertussis vaccine, adsorbed Laurie Noling FORECLOSURE CLERK.[facility] Work Phone: [facility] Work Phone: 01-31-2007 varicella virus vaccine Trac y Noling FORECLOSURE CLERK.[facility] Work Phone: [facility] Work Phone: 11-25-2000 diphtheria, tetanus toxoids and acellular pertussis vaccine, unspecified formulation Laurie Noling FORECLOSURE CLERK.[facility] Work Phone: [facility] Work Phone: 11-25-2000 measles, mumps and rubella virus vaccine Laurie Noling FORECLOSURE CLERK.[facility] Work Phone: [facility] Work Phone: 11-25-2000 poliovirus vaccine, inactivated Laurie Noling FORECLOSURE CLERK.[facility] Work Phone: [facility] Work Phone: 05-10-1997 varicella virus vaccine Trac y Noling FORECLOSURE CLERK.[facility] Work Phone: [facility] Work Phone: 02-08-1997 diphtheria, tetanus toxoids and pertussis vaccine Laurie Noling FORECLOSURE CLERK.[facility] Work Phone: [facility] Work Phone: 02-08-1997 haemophilus influenz ae type b vaccine, PRP-T conjugate Laurie Noling FORECLOSURE CLERK.[facility] Work Phone: [facility] Work Phone: 11-16-1996 measles, mumps and rubella virus vaccine Laurie Noling FORECLOSURE CLERK.[facility] Work Phone: [facility] Work Phone: 11-16-1996 poliovirus vaccine, inactivated Laurie Noling FORECLOSURE CLERK.[facility] Work Phone: [facility] Work Phone: 08-29-1996 hepatitis B vaccine, pediatric or pediatric/adolescent dosage Laurie Noling FORECLOSURE CLERK.[facility] Work Phone: [facility] Work Phone: 05-10-1996 diphtheria, tetanus toxoids and pertussis vaccine Laurie Noling FORECLOSURE CLERK.[facility] Work Phone: [facility] Work Phone: 05-10-1996 haemophilus influenz ae type b vaccine, PRP-T conjugate Laurie Noling FORECLOSURE CLERK.[facility] Work Phone: [facility] Work Phone: 03-14-1996 diphtheria, tetanus toxoids and pertussis vaccine Laurie Noling FORECLOSURE CLERK.[facility] Work Phone: [facility] Work Phone: 01-09-1996 diphtheria, tetanus toxoids and pertussis vaccine Laurie Noling FORECLOSURE CLERK.[facility] Work Phone: [facility] Work Phone: 01-09-1996 haemophilus influenz ae type b vaccine, PRP-T conjugate Laurie Noling FORECLOSURE CLERK.[facility] Work Phone: [facility] Work Phone: 01-09-1996 poliovirus vaccine, inactivated Laurie Noling FORECLOSURE CLERK.OUTPATIENT PHYSICAL THERAPIST ASSISTANT Work Phone: [facility] Work Phone: 1995 hepatitis B vaccine, pediatric or pediatric/adolescent dosage Laurie Noling FORECLOSURE CLERK.OUTPATIENT PHYSICAL THERAPIST ASSISTANT Work Phone: [facility] Work Phone: 1995 hepatitis B vaccine, pediatric or pediatric/adolescent dosage Laurie Noling FORECLOSURE CLERK.OUTPATIENT PHYSICAL THERAPIST ASSISTANT Work Phone: [facility] Work Phone: Payers Date Payer Category Payer [facility] [id number] 2022-Present [phone] [address] [place] [address] PPO [id number] 2022 Private Health Insurance [id number] 2021 Unknown MMO MMO [employer] [id number] 2021-Present [address] [place] [address] PPO [id number] 2017 Unknown [id number] Unknown [id number] Unknown [id number] Unknown [id number] Unknown [id number] Unknown [id number] Unknown [id number] Unknown [id number] Social History Date Type Detail Facility Start: 06-16-2022 Tobacco smoking stat us GAIS Never smoked tobacco [facility] Start: 06-16-2022 Tobacco use and exposure Smokeless tobacco non-user [facility] Start: 06-16-2022 End: 06-09-2023 Alcohol intake Lifetime non-drinker (finding) [facility] Start: 06-16-2022 History SDOH Food Worry 1 [facility] Start: 06-16-2022 History SDOH Housing Unable to Pay 2 [facility] Start: 1995 Sex Assigned At Not on file C [facility] Start: 06-06-2022 End: 06-16-2022 Exposure to SARS-CoV-2 (event) Not sure [facility] Start: 08-27-2022 End: 06-09-2023 History of Social function [facility] Work Phone: Start: 08-27-2022 End: 06-09-2023 Tobacco use panel [facility] Work Phone: Adult Depression Screening Assessment 0 [facility] Work Phone: (I/We) worried denia er (my/our) food would run out before (I/we) got money to buy more. Never true [facility] In the past 12 month s, was there a time when you were not able to pay the mortgage or rent on time? No [facility] Are you now , , , , never or living with a partner? Living with partner [facility] How often to you hav e a drink containing alcohol? Monthly or less [facility] How many standard drinks containing alcohol do you have on a typical day? 1 or 2 [facility] How often do you hav e 6 or more drinks on 1 occasion? Never [facility] Do you feel stress - tense, restless, nervous, or anxious, or unable to sleep at night because your mind is troubled all the time - these days [OSQ] Not at all [facility] Clinical Notes 06-16-2022 to 06-14-2023 Telephone Encounter - Abby Nunes MA - 06/14/2023 3:47 PM ESTPatient Radha Marte LPN - 06/09/2023 7:58 AM Laurie Van APRN.OUTPATIENT PHYSICAL THERAPIST ASSISTANT - 06/09/2023 7:57 AM EST Note Date & Type Note Facility 06-14-2023 Miscellaneous Notes Formattin g of this note might be different from the original. Dr. Tank Bo referral has been faxed. [id number] Abby Nunes MA June 14, 2023 3:48 PM documented in this encounter [facility] 06-09-2023 Note HNO ID: [id number] Author: Laurie Miller APRN.OUTPATIENT PHYSICAL THERAPIST ASSISTANT Service: ? Author Type: Nurse Practitioner Type: Progress Notes Filed: 06/09/2023 10:42 AM Note Text: Black Chavez is a 27 year old male who presents with No chief complaint on file. Black presents today for AWX. Ran out of BP meds. HTN- not checking BP at home. Does check at work, running 130s/80s. Continues to follow with cardiology. Migraines- usually has 1-2x a month. Doing well on Maxalt, typically only needs 1 dose. Last eye exam: approx. 11/2022 Last dental exam: within the past 6 months. Having mid R abd pain radiating into the R flank for the past few months. Feels like his urine looks cloudy later in the day, but not when he wakes up in the morning. Denies N/V, changes in stool, change in appetite. Nothing seems to aggrevate or alleviate, though he does feel he has more flank pain if he takes Aleve. No dysuria. Has not noticed blood in urine. The history is provided by the patient. No results found for: CBCAU , CMPNOTE , LIPIDNOTE , HBA1C , TSH , UALBR , VITD PAST MEDICAL HISTORY Diagnosis Date COVID Essential hypertension Kidney stone Migraine headache ACTIVE PROBLEM LIST Benign Essential Hypertension Class 2 Severe Obesity With Serious Comorbidity and Body Mass Index (Bmi) of 38.0 to 38.9 in Adult Eczema of Hand Elevation of Level of Transaminase and Lactic Acid Dehydrogenase (Ldh) Well Adult Exam Hemorrhoids, Internal Migraine Headaches Palpitations Renal Calculus Seasonal Allergic Rhinitis Multiple Nevi Current Outpatient Medications Medication Sig Dispense Refill rizatriptan (MAXALT SHIPPING HELPER) 10 mg disintegrating tablet TAKE 1 TABLET BY MOUTH ONCE DAILY NEEDED FOR MIGRAINE 9 tablet 0 carvedilol (COREG) 12.5 mg tablet Take 1.5 tablets by mouth once daily. amLODIPine (NORVASC) 10 mg tablet Take 1 tablet by mouth once daily. lisinopril (ZESTRIL, PRINIVIL) 10 mg tablet Take 1 tablet by mouth once daily. No current facility-administered medications for this visit. Social History Tobacco Use Smoking status: Never Smokeless tobacco: Never Vaping Use Vaping Use: Never used Substance Use Topics Alcohol use: Never Drug use: Never FAMILY HISTORY Problem Relation Age of Onset Alcohol/Drug Father Hypertension Father Review of Systems Constitutional: Negative for activity change, appetite change, fatigue and unexpected weight change. HENT: Negative for hearing loss and trouble swallowing. Eyes: Negative for visual disturbance. Respiratory: Negative for cough and shortness of breath. Cardiovascular: Negative for chest pain, palpitations and leg swelling. Gastrointestinal: Positive for abdominal pain. Negative for diarrhea, nausea and vomiting. Genitourinary: Positive for flank pain. Negative for difficulty urinating. Skin: Negative for rash and wound. Neurological: Negative for dizziness, light-headedness and headaches. Psychiatric/Behavioral: Negative for dysphoric mood. All other systems reviewed and are negative. There were no vitals taken for this visit. Physical Exam Vitals and nursing note reviewed. Constitutional: Appearance: Normal appearance. He is obese. Comments: Weight down 10# from last OV. HENT: Head: Normocephalic and atraumatic. Ears: Comments: Grossly normal hearing Eyes: Pupils: Pupils are equal, round, and reactive to light. Cardiovascular: Rate and Rhythm: Normal rate and regular rhythm. Pulses: Normal pulses. Heart sounds: Normal heart sounds. No murmur heard. Pulmonary: Effort: Pulmonary effort is normal. Breath sounds: Normal breath sounds. Abdominal: General: Bowel sounds are normal. Palpations: Abdomen is soft. Tenderness: There is no abdominal tenderness. There is no right CVA tenderness, left CVA tenderness, guarding or rebound. Musculoskeletal: General: No swelling. Cervical back: Neck supple. Lymphadenopathy: Cervical: No cervical adenopathy. Skin: General: Skin is warm and dry. Capillary Refill: Capillary refill takes less than 2 seconds. Findings: No lesion or rash. Neurological: General: No focal deficit present. Mental Status: He is alert and oriented to person, place, and time. Psychiatric: Mood and Affect: Mood normal. Behavior: Behavior normal. Medications were reviewed and verified. Assessment AND Plan ASSESSMENT/PLAN: 1. Well adult exam - ICD9: V70.0, ICD10: Z00.00 (primary diagnosis) - Counseled on healthy diet and regular exercise - Discussed need for and benefit of weight loss. BMI 37.49 kg/(m2) - Depression screening tool completed and reviewed with patient. Based on score and interview, patient is not at risk for depression and recommended no further intervention at this time. - Follow up for annual exam in one year - DEPRESSION SCREENING/ASSESSMENT - COMP METABOLIC PANEL - CBC - LIPID PANEL BASIC 2. Class 2 severe obesity with serious comorbi (more content not included)... [facility] 06-09-2023 Instructions Laurie Miller APRN.FINA - 06/09/2023 8:54 AM EST Have fasting labs drawn KUB ordered Continue current meds Will message with results of testing and further plan of care. documented in this encounter [facility] 06-09-2023 Nurse Note Patient is here for his annual wellness exam. Continues to have right flank pain. Radha Moyer LPN June 09, 2023 8:12 AM documented in this encounter [facility] 06-09-2023 History of Presen t illness Narrative Black Chavez is a 27 year old male who presents with No chief complaint on file. Black presents today for AWX. Ran out of BP meds. HTN- not checking BP at home. Does check at work, running 130s/80s. Continues to follow with cardiology. Migraines- usually has 1-2x a month. Doing well on Maxalt, typically only needs 1 dose. Last eye exam: approx. 11/2022 Last dental exam: within the past 6 months. Having mid R abd pain radiating into the R flank for the past few months. Feels like his urine looks cloudy later in the day, but not when he wakes up in the morning. Denies N/V, changes in stool, change in appetite. Nothing seems to aggrevate or alleviate, though he does feel he has more flank pain if he takes Aleve. No dysuria. Has not noticed blood in urine. The history is provided by the patient. No results found for: CBCAU , CMPNOTE , LIPIDNOTE , HBA1C , TSH , UALBR , VITD PAST MEDICAL HISTORY Diagnosis Date COVID Essential hypertension Kidney stone Migraine headache ACTIVE PROBLEM LIST Benign Essential Hypertension Class 2 Severe Obesity With Serious Comorbidity and Body Mass Index (Bmi) of 38.0 to 38.9 in Adult Eczema of Hand Elevation of Level of Transaminase and Lactic Acid Dehydrogenase (Ldh) Well Adult Exam Hemorrhoids, Internal Migraine Headaches Palpitations Renal Calculus Seasonal Allergic Rhinitis Multiple Nevi Current Outpatient Medications Medication Sig Dispense Refill rizatriptan (MAXALT SHIPPING HELPER) 10 mg disintegrating tablet TAKE 1 TABLET BY MOUTH ONCE DAILY NEEDED FOR MIGRAINE 9 tablet 0 carvedilol (COREG) 12.5 mg tablet Take 1.5 tablets by mouth once daily. amLODIPine (NORVASC) 10 mg tablet Take 1 tablet by mouth once daily. lisinopril (ZESTRIL, PRINIVIL) 10 mg tablet Take 1 tablet by mouth once daily. No current facility-administered medications for this visit. Social History Tobacco Use Smoking status: Never Smokeless tobacco: Never Vaping Use Vaping Use: Never used Substance Use Topics Alcohol use: Never Drug use: Never FAMILY HISTORY Problem Relation Age of Onset Alcohol/Drug Father Hypertension Father Review of Systems Constitutional: Negative for activity change, appetite change, fatigue and unexpected weight change. HENT: Negative for hearing loss and trouble swallowing. Eyes: Negative for visual disturbance. Respiratory: Negative for cough and shortness of breath. Cardiovascular: Negative for chest pain, palpitations and leg swelling. Gastrointestinal: Positive for abdominal pain. Negative for diarrhea, nausea and vomiting. Genitourinary: Positive for flank pain. Negative for difficulty urinating. Skin: Negative for rash and wound. Neurological: Negative for dizziness, light-headedness and headaches. Psychiatric/Behavioral: Negative for dysphoric mood. All other systems reviewed and are negative. There were no vitals taken for this visit. Physical Exam Vitals and nursing note reviewed. Constitutional: Appearance: Normal appearance. He is obese. Comments: Weight down 10# from last OV. HENT: Head: Normocephalic and atraumatic. Ears: Comments: Grossly normal hearing Eyes: Pupils: Pupils are equal, round, and reactive to light. Cardiovascular: Rate and Rhythm: Normal rate and regular rhythm. Pulses: Normal pulses. Heart sounds: Normal heart sounds. No murmur heard. Pulmonary: Effort: Pulmonary effort is normal. Breath sounds: Normal breath sounds. Abdominal: General: Bowel sounds are normal. Palpations: Abdomen is soft. Tenderness: There is no abdominal tenderness. There is no right CVA tenderness, left CVA tenderness, guarding or rebound. Musculoskeletal: General: No swelling. Cervical back: Neck supple. Lymphadenopathy: Cervical: No cervical adenopathy. Skin: General: Skin is warm and dry. Capillary Refill: Capillary refill takes less than 2 seconds. Findings: No lesion or rash. Neurological: General: No focal deficit present. Mental Status: He is alert and oriented to person, place, and time. Psychiatric: Mood and Affect: Mood normal. Behavior: Behavior normal. Medications were reviewed and verified. Assessment & Plan ASSESSMENT/PLAN: 1. Well adult exam - ICD9: V70.0, ICD10: Z00.00 (primary diagnosis) - Counseled on healthy diet and regular exercise - Discussed need for and benefit of weight loss. BMI 37.49 kg/(m^2) - Depression screening tool completed and reviewed with patient. Based on score and interview, patient is not at risk for depression and recommended no further intervention at this time. - Follow up for annual exam in one year - DEPRESSION SCREENING/ASSESSMENT - COMP METABOLIC PANEL - CBC - LIPID PANEL BASIC 2. Class 2 severe obesity with serious comorbidity and body mass index (BMI) of 37.0 to 37.9 in adult, unspecified obesity type - ICD9: 278.01, V85.37, ICD10: E66.01, Z68.37 Weight decreasing - Behavioral intervention 3. Benign essential hypertension - ICD9: 401.1, ICD10: I10 - Home blood pressure readings controlled - Continue current medications - Recommend home blood pressure monitoring, to bring results to next visit - Encouraged sodium restriction, DASH or Mediterranean diet - Recommend regular aerobic exercise - Discussed need for and benefit of weight loss. BMI 37.49 kg/(m^2) - LISINOPRIL 10 MG TABLET 4. Right flank pain - ICD9: 789.09, ICD10: R10.9 - Work up with KUB, UA - UA DIP B/O - XR ABDOMEN 3V KUB W/OBLIQUES 5. Pyuria - ICD9: 791.9, ICD10: R82.81 3+ blood, 1+ leuks. Will send for culture. - URINE CULTURE Laurie Miller APRN.CNP PATIENT NAME: Black Chavez DATE: June 09, 2023 SIGNATURE: Laurie Miller APRN.CNP documented in this encounter [facility] 08-27-2022 Note HNO ID: [id number] Author: Laurie Miller APRN.CNP Service: ? Author Type: Nurse Practitioner Type: Progress Notes Filed: 08/27/2022 6:12 PM Note Text: This note was created using [employer]. Subjective Black Chavez is a 26 year old male. Black presents today with c/o R abd pain ongoing since 08/08. Pain is in the R mid abd. Describes as a dull ache but feels like bad gas pain a few hours after eating. Gets sharper if he is laying down and takes a deep breath in. States it did go away for a few days about 6 days after starting but then recurred. States he has always had IBS-type issues and sensitives to certain foods but has not noticed anything in particular that make symptoms worse. No changes in stools, no blood in stool. Denies N/V, fever. No change in appetite. States the day before pain started, he was skiing and did a jump he wasn't expecting. Tried Gas-X, which has not helped. Has not tried using ice/heat. The history is provided by the patient. Review of Systems Constitutional: Negative for activity change, appetite change, fatigue and unexpected weight change. HENT: Negative for hearing loss and trouble swallowing. Eyes: Negative for visual disturbance. Respiratory: Negative for cough and shortness of breath. Cardiovascular: Negative for chest pain, palpitations and leg swelling. Gastrointestinal: Positive for abdominal pain. Negative for diarrhea, nausea and vomiting. Genitourinary: Negative for difficulty urinating. Skin: Negative for rash and wound. Neurological: Negative for dizziness, light-headedness and headaches. Psychiatric/Behavioral: Negative for dysphoric mood. All other systems reviewed and are negative. Objective BP 144/90 Pulse 76 Ht 180.3 cm (5' 11 ) Wt 124.7 kg (275 lb) SpO2 99% BMI 38.35 kg/m? Physical Exam Vitals and nursing note reviewed. Constitutional: Appearance: Normal appearance. He is obese. Comments: Weight down 3# from last OV. HENT: Head: Normocephalic and atraumatic. Ears: Comments: Grossly normal hearing Eyes: Pupils: Pupils are equal, round, and reactive to light. Cardiovascular: Rate and Rhythm: Normal rate and regular rhythm. Pulses: Normal pulses. Heart sounds: Normal heart sounds. No murmur heard. Pulmonary: Effort: Pulmonary effort is normal. Breath sounds: Normal breath sounds. Abdominal: General: Bowel sounds are normal. Palpations: Abdomen is soft. Tenderness: There is abdominal tenderness in the right upper quadrant and right lower quadrant. There is no guarding or rebound. Negative signs include Baumann's sign. Musculoskeletal: General: No swelling. Cervical back: Neck supple. Lymphadenopathy: Cervical: No cervical adenopathy. Skin: General: Skin is warm and dry. Capillary Refill: Capillary refill takes less than 2 seconds. Findings: No lesion or rash. Neurological: General: No focal deficit present. Mental Status: He is alert and oriented to person, place, and time. Psychiatric: Mood and Affect: Mood normal. Behavior: Behavior normal. Assessment and Plan ASSESSMENT/PLAN: 1. Acute abdominal pain in right lower quadrant - ICD9: 789.03, 338.19, ICD10: R10.31 (primary diagnosis) - Labs of CBC with Diff and CMP - Work up with abd US - Suspect pain may be attributable to muscle strain, advised to use moist heat 3-4x a day. If symptoms do not improve over the next few weeks, consider referral to GI - CBC + DIFF - COMP METABOLIC PANEL - US ABDOMEN COMPLETE 2. Right upper quadrant abdominal pain - ICD9: 789.01, ICD10: R10.11 S/a - CBC + DIFF - COMP METABOLIC PANEL - US ABDOMEN COMPLETE Laurie Rinku Miller APRN.CNP [facility] 08-27-2022 Instructions Laurie Miller APRN.FINA - 08/27/2022 11:00 AM EST Schedule abd US Have labs drawn (non-fasting) Apply moist heat to abd 3-4x a day documented in this encounter [facility] 08-27-2022 History of Presen t illness Narrative Images from the original note were not included. This note was created using [employer]. Subjective Black Chavez is a 26 year old male. Black presents today with c/o R abd pain ongoing since 08/08. Pain is in the R mid abd. Describes as a dull ache but feels like bad gas pain a few hours after eating. Gets sharper if he is laying down and takes a deep breath in. States it did go away for a few days about 6 days after starting but then recurred. States he has always had IBS-type issues and sensitives to certain foods but has not noticed anything in particular that make symptoms worse. No changes in stools, no blood in stool. Denies N/V, fever. No change in appetite. States the day before pain started, he was skiing and did a jump he wasn't expecting. Tried Gas-X, which has not helped. Has not tried using ice/heat. The history is provided by the patient. Review of Systems Constitutional: Negative for activity change, appetite change, fatigue and unexpected weight change. HENT: Negative for hearing loss and trouble swallowing. Eyes: Negative for visual disturbance. Respiratory: Negative for cough and shortness of breath. Cardiovascular: Negative for chest pain, palpitations and leg swelling. Gastrointestinal: Positive for abdominal pain. Negative for diarrhea, nausea and vomiting. Genitourinary: Negative for difficulty urinating. Skin: Negative for rash and wound. Neurological: Negative for dizziness, light-headedness and headaches. Psychiatric/Behavioral: Negative for dysphoric mood. All other systems reviewed and are negative. Objective BP 144/90 Pulse 76 Ht 180.3 cm (5' 11 ) Wt 124.7 kg (275 lb) SpO2 99% BMI 38.35 kg/m Physical Exam Vitals and nursing note reviewed. Constitutional: Appearance: Normal appearance. He is obese. Comments: Weight down 3# from last OV. HENT: Head: Normocephalic and atraumatic. Ears: Comments: Grossly normal hearing Eyes: Pupils: Pupils are equal, round, and reactive to light. Cardiovascular: Rate and Rhythm: Normal rate and regular rhythm. Pulses: Normal pulses. Heart sounds: Normal heart sounds. No murmur heard. Pulmonary: Effort: Pulmonary effort is normal. Breath sounds: Normal breath sounds. Abdominal: General: Bowel sounds are normal. Palpations: Abdomen is soft. Tenderness: There is abdominal tenderness in the right upper quadrant and right lower quadrant. There is no guarding or rebound. Negative signs include Baumann's sign. Musculoskeletal: General: No swelling. Cervical back: Neck supple. Lymphadenopathy: Cervical: No cervical adenopathy. Skin: General: Skin is warm and dry. Capillary Refill: Capillary refill takes less than 2 seconds. Findings: No lesion or rash. Neurological: General: No focal deficit present. Mental Status: He is alert and oriented to person, place, and time. Psychiatric: Mood and Affect: Mood normal. Behavior: Behavior normal. Assessment and Plan ASSESSMENT/PLAN: 1. Acute abdominal pain in right lower quadrant - ICD9: 789.03, 338.19, ICD10: R10.31 (primary diagnosis) - Labs of CBC with Diff and CMP - Work up with abd US - Suspect pain may be attributable to muscle strain, advised to use moist heat 3-4x a day. If symptoms do not improve over the next few weeks, consider referral to GI - CBC + DIFF - COMP METABOLIC PANEL - US ABDOMEN COMPLETE 2. Right upper quadrant abdominal pain - ICD9: 789.01, ICD10: R10.11 S/a - CBC + DIFF - COMP METABOLIC PANEL - US ABDOMEN COMPLETE Laurie Miller APRN.OUTPATIENT PHYSICAL THERAPIST ASSISTANT documented in this encounter [facility] 07-05-2022 Miscellaneous Notes Formattin g of this note might be different from the original. [facility]erral to [facility] was sent 06/28/22. documented in this encounter [facility] 06-16-2022 Instructions Laurie Miller APRN.FINA - 06/16/2022 9:01 AM EST Have fasting labs drawn Continue current meds documented in this encounter [facility] 06-16-2022 History of Presen t illness Narrative This note was created using [employer]. Subjective Black Chavez is a 26 year old male. Black presents today for AWX. He states he still has L sided flank pain off and on, if he stretches or with touch at times. 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 BP running 130s-140s/80s. Was recently increased on carvedilol to 18.75mg. Migraines- unchanged from usual, usually 2-3 a month. Maxalt working well. His father in the past year r/t ETOH abuse. Coping ok. Last eye exam: 09/2021 Last dental exam: 1 week ago The history is provided by the patient. Review of Systems Constitutional: Negative for activity change, appetite change, fatigue and unexpected weight change. HENT: Negative for hearing loss and trouble swallowing. Eyes: Negative for visual disturbance. Respiratory: Negative for cough and shortness of breath. Cardiovascular: Negative for chest pain, palpitations and leg swelling. Gastrointestinal: Negative for diarrhea, nausea and vomiting. Genitourinary: Negative for difficulty urinating. Skin: Negative for rash and wound. Neurological: Negative for dizziness, light-headedness and headaches. Psychiatric/Behavioral: Negative for dysphoric mood. All other systems reviewed and are negative. Objective BP 144/82 Pulse 91 Ht 180.3 cm (5' 11 ) Wt 126.1 kg (278 lb) SpO2 98% BMI 38.77 kg/m Physical Exam Vitals and nursing note reviewed. Constitutional: Appearance: Normal appearance. He is obese. Comments: Weight up 40# from last OV. HENT: Head: Normocephalic and atraumatic. Ears: Comments: Grossly normal hearing Eyes: Pupils: Pupils are equal, round, and reactive to light. Cardiovascular: Rate and Rhythm: Normal rate and regular rhythm. Pulses: Normal pulses. Heart sounds: Normal heart sounds. No murmur heard. Pulmonary: Effort: Pulmonary effort is normal. Breath sounds: Normal breath sounds. Abdominal: General: Bowel sounds are normal. Palpations: Abdomen is soft. Musculoskeletal: General: No swelling. Cervical back: Neck supple. Lymphadenopathy: Cervical: No cervical adenopathy. Skin: General: Skin is warm and dry. Capillary Refill: Capillary refill takes less than 2 seconds. Findings: No lesion or rash. Neurological: General: No focal deficit present. Mental Status: He is alert and oriented to person, place, and time. Psychiatric: Mood and Affect: Mood normal. Behavior: Behavior normal. Assessment and Plan ASSESSMENT/PLAN: 1. Wellness examination - ICD9: V70.0, ICD10: Z00.00 (primary diagnosis) - Counseled on healthy diet and regular exercise - Discussed need for and benefit of weight loss. BMI 38.77 kg/(m^2) - Follow up for annual exam in one year - CBC + DIFF 2. Benign essential hypertension - ICD9: 401.1, ICD10: I10 - suboptimal control - Encouraged dietary sodium restriction/DASH diet - Recommended regular aerobic exercise. - Following with cardiology - Goal of BP <130/80 - COMP METABOLIC PANEL - LIPID PANEL BASIC 3. Migraine headaches - ICD9: 346.90, ICD10: G43.909 Controlled, continue Maxalt 4. Class 2 severe obesity with serious comorbidity and body mass index (BMI) of 38.0 to 38.9 in adult, unspecified obesity type (HCC) - ICD9: 278.01, V85.38, ICD10: E66.01, Z68.38 Weight increasing - Behavioral intervention 5. Screening for diabetes mellitus - ICD9: V77.1, ICD10: Z13.1 - HGB A1C 6. Abnormal weight gain - ICD9: 783.1, ICD10: R63.5 -Check labs, encouraged healthy diet, exercise - TSH BLD - T4 FREE/FREE THYROX 7. Special screening examination for viral disease - ICD9: V73.99, ICD10: Z11.59 - HEP C AB IA W/CONF SCRN 8. Screening for HIV (human immunodeficiency virus) - ICD9: V73.89, ICD10: Z11.4 - HIV 1 2 COMBO(AG/AB),WITH REFLEX TO DIFFERENTIATION 9. Multiple nevi - ICD9: 216.9, ICD10: D22.9 Refer to dermatology for skin checks - CONSULT TO DERMATOLOGY Laurie Miller APRN.CNP documented in this encounter [facility] Diagnosis Acute abdominal pain in right lower quadrant- Primary Abdominal pain, right lower quadrant Right upper quadrant abdominal pain Abdominal pain, right upper quadrant [facility] Diagnosis Well adult exam- Primary Routine general medical examination at a health care facility Class 2 severe obesity with serious comorbidity and body mass index (BMI) of 37.0 to 37.9 in adult, unspecified obesity type Benign essential hypertension Essential hypertension, benign Right flank pain Abdominal pain, unspecified site Pyuria Other nonspecific finding on examination of urine documented in this encounter [facility] for referral (narrative)* Diagnostic Procedure Only (Routine) - Pending Review Specialty Diagnoses / Procedures Referred By Contac t Referred To Contact US IMAGING Diagnoses Acute abdominal pain in right lower quadrant Right upper quadrant abdominal pain Procedures US ABDOMEN COMPLETE US ABDOMINAL REAL TIME W/IMAGE DOCUMENTATION Laurie Miller APRN.CNP [address] [place] [address] Us Imaging Referral ID Status Reason Start Date Expiration Date Visits Requested Visits Authorized [id number] Pending Review Auto-Generat ed Referral 08/27/2022 09/26/2023 1 1 [facility] for referral (narrative)* Diagnostic Procedure Only (Routine) - Pending Review Specialty Diagnoses / Procedures Referred By Contac t Referred To Contact XR IMAGING Diagnoses Right flank pain Procedures XR ABDOMEN 3V KUB W/OBLIQUES RADIOLOGIC EXAM ABDOMEN 3+ VIEWS Laurie Miller APRN.CNP [address] [place] [address] [place] [address] Referral ID Status Reason Start Date Expiration Date Visits Requested Visits Authorized [id number] Pending Review Auto-Generat ed Referral 06/09/2023 07/08/2024 1 1 [facility] Summary Purpose Family History No Family History Records FoundNo Family History Records Found Advance Directives No Advanced Directives Records FoundNo Advanced Directives Records Found Reason for Referral Specialty Diagnoses / Procedures Referred By Contac t Referred To Contact Dermatology Diagnoses Multiple nevi Procedures CONSULT TO DERMATOLOGY Laurie Miller APRN.OUTPATIENT PHYSICAL THERAPIST ASSISTANT [address] [place] [address] [place] [address] Aliyah Hawkins MD [address] [place] [address] Referral ID Status Reason Start Date Expiration Date Visits Requested Visits Authorized [id number] Ref Not Required PCP Requested Referral 2 09/14/2022 3 3 Additional Source Comments (unrecognized sect ion and content) No Status Records FoundNo Status Records Found INFORMATION SOURCE (unrecogn ized section and content) DATE CREATED AUTHOR AUTHOR'S ORGANIZ ATION 06/16/2023 [facility] Ce [facility]ter Source Comments (unrecognize d section and content) In the event this informatio n is protected by the Federal Confidentiality of Alcohol and Drug Abuse Patient Records regulations: The Federal rules restrict any use of the information to criminally investigate or prosecute any alcohol or drug abuse patient.[facility] the event this information is protected by the Federal Confidentiality of Alcohol and Drug Abuse Patient Records regulations: The Federal rules restrict any use of the information to criminally investigate or prosecute any alcohol or drug abuse patient.[facility] the event this information is protected by the Federal Confidentiality of Alcohol and Drug Abuse Patient Records regulations: The Federal rules restrict any use of the information to criminally investigate or prosecute any alcohol or drug abuse patient.[facility] the event this information is protected by the Federal Confidentiality of Alcohol and Drug Abuse Patient Records regulations: The Federal rules restrict any use of the information to criminally investigate or prosecute any alcohol or drug abuse patient.[facility] the event this information is protected by the Federal Confidentiality of Alcohol and Drug Abuse Patient Records regulations: The Federal rules restrict any use of the information to criminally investigate or prosecute any alcohol or drug abuse patient.[facility] the event this information is protected by the Federal Confidentiality of Alcohol and Drug Abuse Patient Records regulations: The Federal rules restrict any use of the information to criminally investigate or prosecute any alcohol or drug abuse patient.[facility] Reason for Visit (unrecogniz ed section and content) Specialty Diagnoses / Procedures Referred By Liz t Referred To Contact Family Medicine / FAMILY MEDICINE Diagnoses Follow-up exam follow up Procedures OFFICE/OUTPATIENT ESTABLISHED HIGH MDM 40-54 MIN EST PATIENT Self Laurie Miller, FORECLOSURE CLERK.OUTPATIENT PHYSICAL THERAPIST ASSISTANT [id number] [address] [place] [address] Referral ID Status Reason Start Date Expiration Date V isits Requested Visits Authorized [id number] Authorized 06/03/2022 07/31/2022 99 99 Reason Comments Orders Reason Comments Established Patient Pt says pain started 08-08-22. Pain is pretty dull unless he's laying down or taking a deep breath. Sometimes tender to the touch along with sharpness. He has not seen gastro before. Reason Comments Refill Request Reason Comments Dr. Tank Bo Referral Care Teams (unrecognized sec tion and content) Post Acute Care Registered Nurse Relationship Specialty Start Date End Date Laurie Miller APRN.OUTPATIENT PHYSICAL THERAPIST ASSISTANT [id number] [place] [address] PCP - General Family Medicine 06/16/22 Post Acute Care Registered Nurse Relationship Specialty Start Date End Date Laurie Miller APRN.OUTPATIENT PHYSICAL THERAPIST ASSISTANT [address] [place] [address] PCP - General Family Medicine 06/16/22 Post Acute Care Registered Nurse Relationship Specialty Start Date End Date Laurie Miller APRN.OUTPATIENT PHYSICAL THERAPIST ASSISTANT [address] [place] [address] PCP - General Family Medicine 06/16/22 Post Acute Care Registered Nurse Relationship Specialty Start Date End Date Laurie Miller APRN.OUTPATIENT PHYSICAL THERAPIST ASSISTANT [address] [place] [id number] PCP - General Family Medicine 06/16/22 Post Acute Care Registered Nurse Relationship Specialty Start Date End Date Laurie Miller APRN.OUTPATIENT PHYSICAL THERAPIST ASSISTANT [address] [facility] [address] [place] [address] PCP - General Family Medicine 06/16/22 FOR RECORDS PERTAINING TO PATIENTS WHO ARE OR HAVE BEEN ENROLLED IN A CHEMICAL DEPENDENCY/SUBSTANCEABUSE PROGRAM, SOME INFORMATION MAY BE OMITTED. This clinical summary was aggregated from multiple sources. Caution should be exercised in using it in the provision of clinical care. This summary normalizes information from multiple sources, and as a consequence, information in this document may materially change the coding, format and clinical context of patient data. In addition, data may be omitted in some cases. CLINICAL DECISIONS SHOULD BE BASED ON THE PRIMARY CLINICAL RECORDS. [facility] [employer] [facility]. provides no warranty or guarantee of the accuracy or completeness of information in this document.
== END | disposition home or self-care (01) ==
LOC: LABSPEC 16:05
PROVIDERS: PCP Nurse Practitioner Family; Referring Provider Nurse Practitioner; Visit Provider Nurse Practitioner
DX: R31.29 Other microscopic hematuria (principal)
CPT/HCPCS: 81001

== ENCOUNTER → 2023-08-10 | Outpatient (CLI) | payer OTHER, SELFPAY ==
--- NOTE | 2023-08-10 13:40 | US_ITS ---
STUDY: RENAL ULTRASOUND - COMPLETE REASON FOR EXAM: Male, 27 years old. HEMATURIA TECHNIQUE: Ultrasound evaluation of the kidneys was performed with real-time and static cui-scale imaging. COMPARISON: None. FINDINGS: RIGHT KIDNEY: Normal location of the right kidney, which is normal in size. The right kidney measures 12.1 cm x 6.3 cm x 6.7 cm. There is a normal cortex of the right kidney. The renal cortex measures 2.0 cm. There is no right renal mass or cyst. 2.6 mm calculus in the midportion of the right kidney. There is no right hydronephrosis. DISTAL RIGHT URETER: There is non-visualization of the distal right ureter. There is no demonstrated right ureterovesical junction calculus. There is a visualized right ureteral jet. LEFT KIDNEY: Normal location of the left kidney, which is normal in size. The left kidney measures 12.5 cm x 5.5 cm x 6.3 cm. There is a normal cortex of the left kidney. The renal cortex measures 2.1 cm. There is no left renal mass or cyst. There are no left renal calculi. There is no left hydronephrosis. DISTAL LEFT URETER: There is non-visualization of the distal left ureter. There is no demonstrated left ureterovesical junction calculus. There is a visualized left ureteral jet. BLADDER: The distended urinary bladder has a volume of 281.2 ml. There is a normal wall thickness of the distended urinary bladder. There is no demonstrated mass within the urinary bladder. There are no demonstrated bladder calculi. US/Kidney and Bladder IMPRESSION: 2.6 mm nonobstructive right renal calculus. Electronically Signed: Channing Bahena MD at 14:46 EST ,
== END | disposition home or self-care (01) ==
LOC: US 13:39
PROVIDERS: PCP Nurse Practitioner Family; Referring Provider Urology; Visit Provider Urology
DX: R31.29 Other microscopic hematuria (principal)
CPT/HCPCS: 76770

== ENCOUNTER 2024-08-14 06:38 | Day surgery (SDC) | payer OTHER, SELFPAY ==
[2024-08-14] VITALS (12 sets, daily range): BP systolic 116–152; BP diastolic 68–92; PULSE 59–81; RESP 14–22; TEMP 36.3–36.8; O2SAT 94–100; BMI 37.3
--- NOTE | 2024-08-14 | APP_PTH ---
PATIENT: EDUIN VACA LOC: [facility] [place] U#:[id number] AGE/SX: 28/M ROOM: RE08/14/[address]: Dr. Codey Delvalle MD : 1995 BED: DIS: 08/14/2024 SPEC #: [id number] RECD: 08/14/24 13:35 STATUS: GIANFRANCO REJd #: [id number] LEXII: 08/14/24 00:[address]: Codey Delvalle DEPT: SURGICAL PATHOLOGY RECD BY: Dayday Tracy ENTERED: 08/14/24 13:35 SP TYPE: APPENDIX OTHR DR: JOYCE CORONADO, BABY ATTENDANT-C Tissues: Appendix, NOS Procedures: Surgery Specimen Level III HEADER OPERATION: Laparoscopic appendectomy PRE-OP DIAGNOSIS: Acute appendicitis TISSUE SUBMITTED: Appendix MICROSCOPIC DIAGNOSIS Appendix, appendectomy: Acute periappendicitis. See dennis. 08/16/2024 COMMENT The entire specimen is examined. Lumen is almost completely obliterated. No luminal or mucosal acute inflammation is noted. Periappendiceal adipose tissue shows focal fat necrosis, acute and chronic inflammation, granulation tissue reaction, abscess formation, congestion and hemorrhage. Results are reported to Dr. Delvalle office on 08/16/2024. Clinical correlation and appropriate follow up are necessary. Case has been reviewed in consultation with Dr. Chavez who concurs with the above diagnosis. IDC:FA MICROSCOPIC DESCRIPTION Slides are reviewed. GROSS DESCRIPTION Received in fixative is one container labeled with the patient's name and designated appendix. The specimen consists of an appendix and a separate round tissue fragment. The appendix measures in length 8cm and in greatest width 2cm. There is apparent exudate on the surface and vascular congestion. A staple line is noted. There is no evidence grossly of perforation. Sectioning reveals focal hemorrhage and possible exudate especially in the proximal portion in the lumen. Electrical Linesworker sections are submitted in three cassettes with the proximal margin from the staple line and the transverse section appendiceal end in cassette 1, the bisected round tissue fragment previously grossly described in cassette 3 with cross sections of appendix. PW.mr 08/14/2024 More sections are submitted as follows: 4&5- rest of the appendix, 6&7- pericolonic adipose tissue with area of hemorrhage. SJ.mr 08/15/2024 TC:3 CPT: 91006
--- NOTE | 2024-08-14 06:50 | CT_ITS ---
STUDY: CT ABDOMEN AND PELVIS WITH CONTRAST - URINARY TRACT REASON FOR EXAM: Male, 28 years old. r-sided abd pain after taking laxative RADIATION DOSAGE (If Supplied By Facility): CTDIvol = ( 17.73 ) mGy, DLP = ( 1336.03 ) mGycm TECHNIQUE: IV 100mL Isovue-370 was administered. Transaxial images were obtained from the dome of the diaphragm to the symphysis pubis subsequent to intravenous contrast administration. Multiplanar coronal and sagittal images were reformatted. The protocol utilizes one or more of the following dose reduction techniques: automated exposure control, adjustment of mA and/or kV according to patient size,and/or use of iterative reconstruction technique. COMPARISON: Renal ultrasound dated August 10, 2023 FINDINGS: The visualized lung bases are unremarkable. The visualized portions of the heart are within normal limits. There is decreased attenuation of the liver consistent with steatosis. Normal gallbladder and extrahepatic biliary system. Normal spleen. Normal pancreas. Normal bilateral adrenal glands. Normal visualized stomach. Normal small intestine. Normal colon. The appendix is dilated measuring up to 10 mm associated with circumferential wall thickening and periappendiceal stranding consistent with appendicitis. There is an associated enlarged lymph node within the mesentery right of midline measuring up to 1 cm Normal abdominal aorta. No retroperitoneal adenopathy. There is a 2.9 mm nonobstructing right renal calculus. There is a too small to characterize low-attenuation focus within the right kidney which may reflect a cyst. Within the left kidney there is a 2.5 mm nonobstructing calculus. There are two round low-attenuation foci within the left kidney within appearance suggestive of cysts. Normal urinary bladder. There is a small umbilical hernia containing fat. Normal osseous structures. CT/Abdomen/Pelvis W IV Cont ONLY IMPRESSION: Acute appendicitis. Fatty infiltration of the liver. Bilateral nonobstructing renal calculi measuring up to 2.9 mm on the right. Electronically Signed: Shruti Pat MD at 8:11 EST ,
--- NOTE | 2024-08-14 06:53 | ED.VIS.GI ---
HPI HPI - GI History of Present Illness Chief Complaint: Constipation Informant: patient Abdominal Pain/Flank Pain Onset: Days Context: Gradual Onset Timing: Intermittent Quality: Cramping Location: RUQ and RLQ Current Severity: Mild Maximum Severity: Mild Worsened by: Nothing Relieved by: Nothing Nausea/Vomiting/Emesis GI Symptom: Negative for Nausea or Vomiting Diarrhea/Melena/Hematochezia GI Symptom: Positive for - (Constipation. With the laxatives he has had small loose stools. No significant bowel movement for 4 to 5 days.); Negative for Diarrhea, Melena or Hematochezia Associated Symptoms Associated Symptoms: Negative for Dysuria, Frequency, Hematuria or Urgency Narrative Narrative: 28-year-old male history of kidney stones and hypertension. Says that he has not had any significant bowel movement for 4 to 5 days since probably last or Tuesday. He has been taking laxatives with really no significant relief. Has had small loose stools. But no significant bowel movement. Denies any fever. Denies any vomiting. Denies any dysuria. Has never had any abdominal surgeries. Denies any abdominal trauma. He said now he is having right sided abdominal pain both upper and lower quadrant. Not associated with food. Prior similar symptoms: No Recent Illness/Hospitalization: No PFSH [facility] Medical History Wears contact lenses Alcohol use History of kidney stones Non-smoker Sleep apnea Cardiology follow-up encounter Hypersomnolence Essential hypertension Palpitations Seasonal allergies Migraines Home Medications ?Medication ?Instructions ?Recorded ?Last Taken ?Type rizatriptan 10 mg tablet (Maxalt) 10 mg PO ONCE PRN migraines 08/14/19 Unknown History acetaminophen 500 mg tablet 500 mg PO Q4H PRN PRN Pain Score 01/16/21 Unknown Rx 1-510 #0 tabs ibuprofen 200 mg tablet 400 mg (2 x 200 mg) PO Q6H PRN PRN 01/16/21 Unknown Rx Pain Score 4-1010 #0 tabs carvedilol 25 mg tablet 25 mg PO BID #60 tabs 12/20/23 Unknown Rx amlodipine 10 mg tablet 10 mg PO DAILY #90 tabs 02/10/24 Unknown Rx lisinopril 10 mg tablet 10 mg PO DAILY #90 tabs 06/22/24 Unknown Rx Allergy/AdvReac Type Severity Reaction Status Date / Time hydromorphone (From Dilaudid) Allergy Severe Unknown Verified 08/14/24 06:39 pollen extracts Allergy Severe Unknown Verified 08/14/24 06:39 Family History Sister Hypertension Brother Hypertension Mother Hypertension Heart disease Father Hypertension Surgical History Hx of nasal septoplasty History of tonsillectomy (~2016) Social History Smoking Status: Never smoker alcohol intake: current alcohol intake frequency: a few times a month substance use type: does not use caffeine: Yes Type: coffee Number of servings: 1 ROS ROS ED ROS Narrative Constipation. Right-sided abdominal pain. Denies fever. Denies dysuria. Constitutional Constitutional ED: Denies chills or fever(s) ENT ENT ED: Denies ear pain Cardiovascular Cardiovascular: Denies chest pain Respiratory/Chest Respiratory/Chest: Denies cough or dyspnea Gastrointestinal Gastrointestinal: Reports abdominal pain and constipation; Denies diarrhea, melena, nausea or vomiting Genitourinary Genitourinary ED: Denies dysuria or hematuria Musculoskeletal Musculoskeletal: Denies arthralgias Integumentary Denies abscess Neurologic Neurologic: Denies headache(s) Psychiatric Psychiatric: Denies anxiety or depression Endocrine Endocrinology: Denies polydipsia or polyphagia Hematologic/Lymphatic Hematologic/Lymphatic: Denies easy bleeding or easy bruising Allergic/Immunologic Allergic/Immunologic ED: Denies mouth swelling, tongue swelling or urticaria EXAM Physical Exam Narrative Exam Narrative: Well-appearing 28-year-old male. Vital signs are stable afebrile. No acute distress. H EENT exam unremarkable. Neck nontender. Lungs clear to auscultation bilaterally. Heart regular rate and rhythm no murmur. Chest wall ribs nontender. Abdomen soft nondistended normal bowel sounds no peritoneal signs. He does have right upper and right lower quadrant tenderness. No Baumann sign. No hernia or mass. No signs of obstruction. No signs of trauma. Left side of the abdomen is nontender. Back nontender. Moving all 4 extremities. Nontender no edema. Normal range of motion. No deformity. Neurologically is awake and alert no focal motor deficits. Const Vital Signs: 08/14/24 06:40 Temperature 97.8 F Temperature Source Oral Pulse Rate 80 Respiratory Rate 18 Blood Pressure 152/86 H Blood Pressure Mean 108 Pulse Ox 98 Oxygen Delivery Method Room Air Positive well nourished and well developed; Negative for cachectic, contractures or unkempt General Appearance ED: well developed and NAD; Negative for unkempt, cachectic, contractures or pallor Nutritional Appearance: Negative for cachectic HEENT Reports moist mucous membranes normocephalic and atraumatic Eyes PERRL and EOMs intact bilaterally Neck no lymphadenopathy, supple and no JVD Resp normal respiratory effort and clear to auscultation bilaterally Auscultation: Negative for rales, rhonchi, wheezes or diminished lung sounds Cardio regular rate, regular rhythm, S1 normal heart sound, S2 normal heart sound and no murmurs Rate: Negative for bradycardia or tachycardic Rhythm: Negative for abnormal rhythm GI non-distended and no masses; Negative for non-tender GI Narrative: Right-sided abdominal tenderness. No peritoneal signs. No hernia or mass. No distention. Auscultation: normoactive bowel sounds Palpation: soft and tender; Negative for guarding, rigid, hepatomegaly, splenomegaly, hernia, mass, pulsatile mass or rebound tenderness present Back/Spine no CVA tenderness General Back: Negative for CVA tenderness Cervical Spine: Negative for cervical spine tenderness Thoracic Spine / Upper Back: Negative for thoracic spinal tenderness Lumbar Spine / Lower Back: Negative for lumbar spinal tenderness Extremity full ROM General Extremety ED: Negative for edema or tenderness General Extremity: Negative for edema Neuro CN's II-XII intact bilaterally and moves all extremities Sensorium / Orientation: alert, oriented to person, oriented to place and oriented to time Motor Exam: strength 5/5 throughout Psych mental status grossly normal and thought process normal Appearance: Negative for unkempt Attitude: No agitated Mood & Affect: Negative for depressed, anxious or tearful Skin no wounds General Skin Exam: Negative for jaundice or pallor Lesions: no lesions Rashes: no rashes Image ED - Body Diagram Man: 1. Right-sided abdominal pain upper and lower quadrant. No peritoneal signs. MDM MDM MDM Narrative Medical decision making narrative: 28-year-old male complaining of right-sided abdominal pain and constipation. This may all be from constipation but he is tender in both the right upper and right lower quadrant. He has no left-sided abdominal tenderness. CAT scan labs are being obtained. Repeat exam at 7:30 AM patient doing well. Still has reproducible pain on the right side of his abdomen. Again no peritoneal signs. We discussed his labs. He will be turned over to the morning physician. Awaiting the urinalysis which is in the lab and the CAT scan to be done and read. History & Record Review Discussion w/independent historian: Patient Lab Data Attestation: I reviewed the patient's lab results. Lab results narrative: CBC shows normal white count 6.7 H&H of 14 and 42. Platelets 362. Electrolytes show gap 6. Normal BUN of 17 creatinine 0.9. Glucose 122. Liver enzymes unremarkable. Lipase normal at 25. Labs: Laboratory Results - last 24 hr 08/14/24 08/14/24 07:00 07:10 WBC 6.7 RBC 4.99 Hgb 14.1 Hct 42.2 MCV 84.6 MCH 28.3 MCHC 33.4 RDW Std Deviation 38.5 RDW Coeff of [place] 12.6 Plt Count 362 MPV 8.8 Immature Gran % (Auto) 0.100 Neut % (Auto) 59.0 Lymph % (Auto) 29.2 [place] % (Auto) 9.7 Eos % (Auto) 1.3 Baso % (Auto) 0.7 Absolute Neuts (auto) 4.0 Absolute Lymphs (auto) 1.96 Nucleated RBC % 0 Sodium 139 Potassium 3.8 Chloride 107 Carbon Dioxide 26.0 Anion Gap 6 BUN 17 Creatinine 0.94 Estim Creat Clear Calc 155.19 Est GFR (MDRD) Af Amer 122 Est GFR (MDRD) Non-Af 101 BUN/Creatinine Ratio 18.0 Glucose 122 H Calcium 9.7 Total Bilirubin 0.50 AST 21 ALT 65 H Alkaline Phosphatase 65 Total Protein 7.7 Albumin 4.0 Globulin 3.7 Albumin/Globulin Ratio 1.1 Lipase 25 Urine Color Yellow Urine Clarity Sl. Cloudy Urine pH 6.0 Ur Specific [place] 1.020 Urine Protein 15 H Urine Glucose (UA) Normal Urine Ketones Negative Urine Occult Blood 50 H Urine Nitrite Negative Urine Bilirubin Negative Urine Urobilinogen Normal Ur Leukocyte Esterase 25 H Discharge Plan Triage Chief Complaint: Constipation ED Provider: Tay Pinto Dx/Rx/DC Orders Clinical Impression: Abdominal pain Prescriptions: No Action rizatriptan [Maxalt] 10 mg tablet 10 mg PO ONCE PRN (Reason: migraines) Rx Instructions: may repeat once in >=2 hours carvedilol 25 mg tablet 25 mg PO BID Qty: 60 11RF Rx Instructions: must administer with a meal/food acetaminophen 500 mg Tablet 500 mg PO Q4H PRN PRN (Reason: Pain Score 1-5/10) Qty: 0 0RF ibuprofen 200 mg Tablet 400 mg PO Q6H PRN PRN (Reason: Pain Score 4-10/10) Qty: 0 0RF amlodipine 10 mg tablet 10 mg PO DAILY Qty: 90 3RF lisinopril 10 mg tablet 10 mg PO DAILY Qty: 90 3RF Primary Care Provider: JOYCE CORONADO Referrals: JOYCE CORONADO NP-C [Primary Care Provider] - Print Language: Montenegrin
[2024-08-14 07:10] LABS: Absolute Lymphocyte Count 1.96 X10^3/uL (0.83-4.51); Basophil# 0.05 X10^3/uL; Basophil% 0.7 % (0-1); Eosinophil# 0.09 X10^3/uL; Eosinophils% 1.3 % (0-5); Hematocrit 42.2 % (40-54); Hemoglobin 14.1 g/dL (13.0-16.5); Lymphocyte # 1.96 X10^3/ul (0.83-4.51); Lymphocyte % 29.2 % (19-41); Mean Corp Hgb Conc 33.4 g/dL (32-36); Mean Corpuscular Hgb 28.3 pg (27.0-32.0); Mean Corpuscular Volume 84.6 fL (80-94); Mean Platelet Vol. 8.8 fl (6.2-12.0); Monocyte# 0.65 X10^3/uL; Monocyte% 9.7 % (0-10); NRBC Flagged by Analyzer 0 % (0-5); Neutrophil # 3.96 X10^3/uL (2.7-7.7); Platelet Count 362 K/mm3 (150-450); RBC Distribution Width CV 12.6 % (11.6-14.6); RBC Distribution Width SD 38.5 fl (35.1-43.9); Red Blood Count 4.99 M/mm3 (4.6-6.2); White Blood Count 6.7 K/mm3 (4.4-11.0)
[2024-08-14 07:21] LABS: Color, Urine Yellow (Yellow); Glucose, Dipstick Normal (Normal); Ketone-Dipstick Negative (Negative); Leukocyte Esterase-Dipstick 25 /ul (Negative); Nitrite-Dipstick Negative (Negative); Occult Blood-Urine 50 /ul (Negative); Protein-Dipstick 15 mg/dl (Negative); Urine Bilirubin Dipstick Negative (Negative); Urine Clarity Sl. Cloudy (Clear); Urine Urobilinogen Normal (Normal)
[2024-08-14 07:25] LABS: ALB/GLOB Ratio 1.1 RATIO (0.9-2.4); AST(SGOT) 21 U/L (15-37); Alanine Aminotransfer ALT/SGPT 65 U/L (16-61); Alkaline Phosphatase 65 U/L (45-117); Anion Gap 6 (5-15); BUN 17 mg/dL (7-18); Calcium,Total 9.7 mg/dL (8.5-10.1); Chloride 107 mmol/L (98-107); Creatinine, Serum 0.94 mg/dL (0.70-1.30); EST Glomerular Filtration Rate 101 mL/min (>60); Est Glom Filt Rate - Afr Amer 122 mL/min (>60); Estimated Creatinine Clearance 155.19 ml/min; Globulin 3.7 g/dL (2.2-4.2); Glucose 122 mg/dL (74-106); Lipase 25 U/L (13-75); Potassium 3.8 mmol/L (3.5-5.1); Protein, Total 7.7 g/dL (6.4-8.2); Sodium Level 139 mmol/L (136-145)
[2024-08-14 07:32] LABS: Bacteria 1+ /hpf (None Seen); Mucous, Urine 2+ /hpf (<or=2+); Red Blood Cells-Urine 0-5 SEEN /hpf (0-5); Squamous Epithelial Cells - UA 0-5 SEEN /hpf (0-5); White Blood Cells 0-5 SEEN /hpf (0-5)
--- NOTE | 2024-08-14 09:17 | HP.PCM_ITS ---
HPI - General General Date of Admission: 08/14/24 Date of Service: 08/14/24 Chief Complaint: Abdominal pain HPI Narrative EDUIN VACA, is a 28 M who presents with abdominal pain that started on Tuesday. Patient notes he was having difficulties with constipation over the weekend. He notes trying Miralax, Dulcolax and Milk of magnesia before producing loose stools. He states he normally has regular bowel movements 2-3 times per day. He notes his appetite has been normal over the last several days. Patient denies any nausea, vomiting. He notes developing abdominal pain on Tuesday and when this was not going away, he came to the ED. CT scan of the ab/pel demonstrated acute appendicitis, fatty infiltration of the liver and nonobstructing renal calculi measuring 2.9 mm on the right. Patient has a history of hypertension and sees cardiology for high blood pressure and palpitations. He also has a history of sleep apnea and does not wear a CPAP machine. He is not on any blood thinners. He denies any abdominal surgeries previously. Labs demonstrate WBC 6.7, Hgb 14.1, Hct 42.2, Plt 362. Other remaining labs are unremarkable. [facility] Medical History Wears contact lenses Alcohol use History of kidney stones Non-smoker Sleep apnea Cardiology follow-up encounter Hypersomnolence Essential hypertension Palpitations Seasonal allergies Migraines Home Medications ?Medication ?Instructions ?Recorded ?Last Taken ?Type rizatriptan 10 mg tablet (Maxalt) 10 mg PO ONCE PRN migraines 08/14/19 Unknown History acetaminophen 500 mg tablet 500 mg PO Q4H PRN PRN Pain Score 01/16/21 Unknown Rx 1-5/10 #0 tabs ibuprofen 200 mg tablet 400 mg (2 x 200 mg) PO Q6H PRN PRN 01/16/21 Unknown Rx Pain Score 4-10/10 #0 tabs carvedilol 25 mg tablet 25 mg PO BID #60 tabs 12/20/23 Unknown Rx amlodipine 10 mg tablet 10 mg PO DAILY #90 tabs 02/10/24 Unknown Rx lisinopril 10 mg tablet 10 mg PO DAILY #90 tabs 06/22/24 Unknown Rx Allergy/AdvReac Type Severity Reaction Status Date / Time hydromorphone (From Dilaudid) Allergy Severe Unknown Verified 08/14/24 06:39 pollen extracts Allergy Severe Unknown Verified 08/14/24 06:39 Family History Sister Hypertension Brother Hypertension Mother Hypertension Heart disease Father Hypertension Surgical History Hx of nasal septoplasty History of tonsillectomy (~2016) Social History Smoking Status: Never smoker alcohol intake: current alcohol intake frequency: a few times a month substance use type: does not use caffeine: Yes Type: coffee Number of servings: 1 ROS Constitutional Constitutional: Reports systems reviewed and no addt'l complaints, except as documented Eyes Eyes: Reports systems reviewed and no addt'l complaints, except as documented ENT HEENT: Reports systems reviewed and no addt'l complaints, except as documented Cardiovascular Cardiovascular: Reports systems reviewed and no addt'l complaints, except as documented Respiratory/Chest Respiratory/Chest: Reports systems reviewed and no addt'l complaints, except as documented Gastrointestinal Gastrointestinal: Reports systems reviewed and no addt'l complaints, except as documented Genitourinary Genitourinary: Reports systems reviewed and no addt'l complaints, except as documented Musculoskeletal Musculoskeletal: Reports systems reviewed and no addt'l complaints, except as documented Integumentary Integumentary: Reports systems reviewed and no addt'l complaints, except as documented Neurologic Neurologic: Reports systems reviewed and no addt'l complaints, except as documented Psychiatric Psychiatric: Reports systems reviewed and no addt'l complaints, except as documented Endocrine Endocrinology: Reports systems reviewed and no addt'l complaints, except as documented Hematologic/Lymphatic Hematologic/Lymphatic: Reports systems reviewed and no addt'l complaints, except as documented Allergic/Immunologic Allergic/Immunologic: Reports systems reviewed and no addt'l complaints, except as documented Vital Signs Vital Signs Vital Signs: 08/14/24 06:40 08/14/24 08:39 Temperature 97.8 F Temperature Source Oral Pulse Rate 80 75 Respiratory Rate 18 16 Blood Pressure 152/86 H 138/68 H Blood Pressure Mean 108 91 Pulse Ox 98 99 Oxygen Delivery Method Room Air Weight Weight: 267 lb 13.786 oz Body Mass Index (BMI) 37.3 Physical Exam Const alert, oriented x3 and no apparent distress HEENT normocephalic and head/scalp atraumatic Eyes PERRL Neck full ROM Resp normal respiratory effort and clear to auscultation bilaterally Cardio regular rate and regular rhythm GI GI Narrative: Abdomen- soft, tenderness in the RLQ. Positive McBurney's and Psoas sign. no CVA tenderness Back/Spine no CVA tenderness Extremity normal to inspection Skin no rashes or lesions noted Neuro no focal motor deficits and no sensory deficits noted Psych mental status grossly normal and thought process normal Results Lab / Micro Data 08/14/24 07:00 08/14/24 07:00 Labs: Laboratory Results - last 24 hr 08/14/24 07:00: WBC 6.7, RBC 4.99, Hgb 14.1, Hct 42.2, MCV 84.6, MCH 28.3, MCHC 33.4, RDW Std Deviation 38.5, RDW Coeff of Haydee 12.6, Plt Count 362, MPV 8.8, Immature Gran % (Auto) 0.100, Neut % (Auto) 59.0, Lymph % (Auto) 29.2, [place] % (Auto) 9.7, Eos % (Auto) 1.3, Baso % (Auto) 0.7, Absolute Neuts (auto) 4.0, Absolute Lymphs (auto) 1.96, Nucleated RBC % 0, Sodium 139, Potassium 3.8, Chloride 107, Carbon Dioxide 26.0, Anion Gap 6, BUN 17, Creatinine 0.94, Estim Creat Clear Calc 155.19, Est GFR (MDRD) Af Amer 122, Est GFR (MDRD) Non-Af 101, BUN/Creatinine Ratio 18.0, Glucose 122 H, Calcium 9.7, Total Bilirubin 0.50, AST 21, ALT 65 H, Alkaline Phosphatase 65, Total Protein 7.7, Albumin 4.0, Globulin 3.7, Albumin/Globulin Ratio 1.1, Lipase 25 08/14/24 07:10: Urine Color Yellow, Urine Clarity Sl. Cloudy, Urine pH 6.0, Ur Specific What[place] 1.020, Urine Protein 15 H, Urine Glucose (UA) Normal, Urine Ketones Negative, Urine Occult Blood 50 H, Urine Nitrite Negative, Urine Bilirubin Negative, Urine Urobilinogen Normal, Ur Leukocyte Esterase 25 H, Urine RBC 0-5 SEEN, Urine WBC 0-5 SEEN, Ur Squamous Epith Cells 0-5 SEEN, Urine Bacteria 1+, Urine Mucus 2+ Imaging Radiology Impression Abdomen/Pelvis CT 08/14/24 06:50 IMPRESSION: Acute appendicitis. Fatty infiltration of the liver. Bilateral nonobstructing renal calculi measuring up to 2.9 mm on the right. Electronically Signed: Shruti Pat MD at 8:11 EST , Assessment & Plan Assessment/Plan (1) Acute appendicitis: QUALIFIERS: Acute appendicitis type: with localized peritonitis A ppendicitis gangrene presence: without gangrene Appendicitis perforation presence: without perforation Appendicitis abscess presence: without abscess Q ualified Code(s): K35.30 - Acute appendicitis with localized peritonitis, without perforation or gangrene PLAN: I have been consulted in conjunction with Dr. Delvalle. He has also independently evaluated this patient. Patient presented with a 2 day history of right lower abdominal pain and constipation. CT scan of the ab/pel demonstrated acute appendicitis. Dr. Delvalle will plan to perform a laparoscopic appendectomy. Procedure details, risks and benefits have been explained to the patient. Patient and his significant other have had the opportunity to ask and have questions answered. We will plan to proceed with the proposed procedure when operating room time permits. Thank you for allowing us to participate in this patient's care. Charges/Coding Visit Charges OBSV E&M: 67158 Observ/hosp same date L2
[2024-08-14] MEDS: Piperacil/Tazobactam 4.5 GM in 0.9% Normal Saline (100mL MB+) 100 ML IV (09:24)
[2024-08-14] MEDS: 0.9% Normal Saline (1000mL) 1,000 ML 15 ML IV (10:01)
--- NOTE | 2024-08-14 10:11 | PCM.PRE.AN2 ---
ASA Classification* ASA Classification ASA Classification: 2 and E Assessment & Plan Anesthesia* Anesthesia Assessment Anesthesia Assessment: Discussed sedation and/or anesthesia options, risks, benefits, and alternatives with patient/parents/legal guardian/POA. Questions invited. The patient/parents/legal guardian/POA seems to understand and agrees to proceed with anesthesia plan. Reviewed the physical assessment, medical history, allergy history and patient home medications list prior to surgery/procedure/anesthetic and documented any changes. Performed airway and anesthesia risk assessments. Anesthesia Type Anesthesia Type: General History Source History Obtained from:: Patient and Chart Anesthesia Focused Assessment* Temperature: 98.2 F Pulse Rate: 80 Blood Pressure: 128/68 Respiratory Rate: 18 Pulse Ox: 98 Oxygen Delivery Method: Room Air Airway Assessment Mouth opens: >3 cm Mallampati Score: I Teeth Condition: Intact Neck Range of motion (ROM): Full ROM Focused Labs Anesthesia Preop lab: CBC WBC 6.7 K/mm3 (4.4-11.0) 08/14/24 07:00 RBC 4.99 M/mm3 (4.6-6.2) 08/14/24 07:00 Hgb 14.1 g/dL (13.0-16.5) 08/14/24 07:00 Hct 42.2 % (40-54) 08/14/24 07:00 Plt Count 362 K/mm3 (150-450) 08/14/24 07:00 CHEMISTRY Potassium 3.8 mmol/L (3.5-5.1) 08/14/24 07:00 Sodium 139 mmol/L (136-145) 08/14/24 07:00 Phosphorus 3.5 mg/dL (2.5-4.9) 03/24/21 09:00 BUN 17 mg/dL (7-18) 08/14/24 07:00 Creatinine 0.94 mg/dL (0.70-1.30) 08/14/24 07:00 Glucose 122 mg/dL (74-106) H 08/14/24 07:00 TSH 1.34 uIU/mL (0.358-3.74) 08/13/19 16:31 COAG Pre-Assessment Diagnosis/Proposed Procedure Planned Operative Procedure(s): Laparoscopic appendectomy. 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 When Was Last Pacemaker Check QUESTION #4 FULL TEXT: You/Your Family Experience fever (hyperthermia) with Anesthesia Last Oral Intake Last Oral intake: Last Oral Intake NPO since Meds taken in AM with sips of water? Meds patient instructed to take am of surgery Any additional information?: Yes Meds taken in AM with sips of water?: Yes PONV PONV - ton cylinder inspector: PONV - ton cylinder inspector Female HX of Motion Sickness HX of N/V After Surgery Non-Smoker Duration of Surgery greater than 60 minutes Number of Risk Factors PONV Score Height & Weight Height & Weight: Anesthesia: Height & Weight Height 5 ft 11 in 08/14/24 06:40 Weight: 121.5 kg 08/14/24 06:40 Body Mass Index (BMI) 37.3 08/14/24 06:40 Respiratory Assessment Respiratory Assessment - ton cylinder inspector: Respiratory Tract Infection Hx - ton cylinder inspector Hx Respiratory Tract Infection No 01/09/21 11:12 STOP Sleep Apnea STOP Sleep Apnea - ton cylinder inspector: STOP Sleep Apnea - ton cylinder inspector Hx Hypertension Yes 01/09/21 11:12 Hx Sleep Apnea Yes 01/16/21 09:23 CPAP No 01/16/21 08:38 BIPAP No 01/09/21 11:12 Do you snore loudly (louder than talking or can be heard Do you often feel tired/ fatigued/ sleepy during daytime? Has anyone observed you stop breathing during sleep? STOP Results QUESTION #5 FULL TEXT : Do you snore loudly (louder than talking or can be heard through closed doors)? Tobacco Use History Tobacco Use History - ton cylinder inspector: Tobacco Use History - ton cylinder inspector Tobacco Use Smoking Status Never smoker 08/14/24 06:40 Hx Tobacco Use No 01/09/21 11:12 Years Smoking Packs Smoked per Day Smoking Cessation Date was within the last 15 years Hx Smoking Cessation Date Hx Smoking Cessation Counseling Hematologic Medial History Hematologic Hx - ton cylinder inspector: Hematologic Medical Hx - referral rn Hx of Blood Transfusion Hx of Transfusion in last 3 Months Date of Last Transfusion (if within last 3 months) Ever experience any problems with transfusion(s)? Specify any problems Hx of Preganancy in last 3 Months Nurse Filling Out Transfusion & Questions: Date: Time: Patient unable to answer at this time (ie. 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 History - ton cylinder inspector: /Reproductive Hx- ton cylinder inspector Hx Now Gestational Age (in weeks): EDC: Hx Hx Para Hx Section SAB Active Medications Active Medications: Current Medications Generic Name Dose Route Start Last Admin Trade Name Freq PRN Reason Stop Dose Admin Sodium Chloride 1,000 mls @ 15 mls/hr 08/14/24 10:00 08/14/24 10:01 IV 08/19/24 23:19 15 mls/hr .Q48H KELI Administration Protocol [facility] Medical History Wears contact lenses Alcohol use History of kidney stones Non-smoker Sleep apnea Cardiology follow-up encounter Hypersomnolence Essential hypertension Palpitations Seasonal allergies Migraines Home Medications ?Medication ?Instructions ?Recorded ?Last Taken ?Type rizatriptan 10 mg tablet (Maxalt) 10 mg PO ONCE PRN migraines 08/14/19 Unknown History acetaminophen 500 mg tablet 500 mg PO Q4H PRN PRN Pain Score 01/16/21 Unknown Rx 1-5/10 #0 tabs ibuprofen 200 mg tablet 400 mg (2 x 200 mg) PO Q6H PRN PRN 01/16/21 Unknown Rx Pain Score 4-10/10 #0 tabs carvedilol 25 mg tablet 25 mg PO BID #60 tabs 12/20/23 08/14/24 Rx amlodipine 10 mg tablet 10 mg PO DAILY #90 tabs 02/10/24 08/14/24 Rx lisinopril 10 mg tablet 10 mg PO DAILY #90 tabs 06/22/24 08/14/24 Rx Allergy/AdvReac Type Severity Reaction Status Date / Time hydromorphone (From Dilaudid) Allergy Severe Unknown Verified 08/14/24 06:39 pollen extracts Allergy Severe Unknown Verified 08/14/24 06:39 Family History Sister Hypertension Brother Hypertension Mother Hypertension Heart disease Father Hypertension Surgical History Hx of nasal septoplasty History of tonsillectomy (~2015) Social History Smoking Status: Never smoker alcohol intake: current alcohol intake frequency: a few times a month substance use type: does not use caffeine: Yes Type: coffee Number of servings: 1 Review of Systems (Anesthesia) ROS Narrative System reviewed and no additional complaints, except as documented.
[2024-08-14] MEDS: Bupiv/Epi 0.25% 30 ML Vial (10:41)
--- NOTE | 2024-08-14 11:39 | PCM.OPRPT ---
Procedures Digestive 40xxx-49xxx: [id number] Laparoscopy appendectomy Operative Report (Standard) Operative Information Date of Procedure: 08/14/24 Pre-Operative Diagnosis: Acute appendicitis Post-Operative Diagnosis: Acute uncomplicated appendicitis Surgery/Procedure Performed: Laparoscopic appendectomy residential team leader: No Type of Anesthesia: General/Supplemental RN Documented Start/Stop Times: Operation Date: 08/14/24 10:00 Case Time Into Pre-Op 08/14/24 09:47 Anesthesia Start 08/14/24 10:23 Into Room 08/14/24 10:23 Out of Pre-Op 08/14/24 10:23 Procedure Start 08/14/24 10:42 Procedure End 08/14/24 11:39 Anesthesia End 08/14/24 11:43 Out of Room 08/14/24 11:43 Into Recovery 08/14/24 11:54 Out of Recovery 08/14/24 12:29 Into Phase II Recovery 08/14/24 12:30 Out of Phase II 08/14/24 14:41 Procedure Start Time: 10:42 Procedure Stop Time: 11:39 Select all DRAINS/GRAFTS/IMPLANTS that apply: None Estimated Blood Loss: 10 Specimen collected: Yes Description of specimen(s) removed: Appendix Description of surgery: After appropriate identification in the preoperative holding area, the patient was brought to the operating room and placed supine on the operating room table. Antibiotics had been preoperatively administered by emergency medicine. Patient was then induced with general endotracheal anesthetic. The abdomen was prepped and draped in usual sterile fashion. Formal timeout was conducted to confirm both the patient and the procedure. A supraumbilical incision was made and carried down to the level of the fascia which was sharply opened. After opening the peritoneum in like fashion a finger sweep was made to confirm position, and a balloon trocar was placed and pneumoperitoneum was established to 15 mmHg. Patient was positioned in Trendelenburg with the left side down. 2 additional 5 mm trocars were placed in the left lower quadrant and suprapubic positions. The peritoneum was inspected and there were no signs of inadvertent injury from this Marie entry. The appendix was visualized with mild to moderate inflammation approaching the appendiceal tip which was adherent to the sale of the appendix and some fatty tissue adjacent to the cecum. Using blunt laparoscopic dissection, a window was made in the mesoappendix adjacent to the appendiceal base. Then the base of the appendix was sealed and amputated with the use of an Endo NAINA stapler. Given its adherence to the surrounding fatty tissue the mesoappendix was divided adjacent to the appendix with application of a laparoscopic harmonic. Once the specimen was completely from the adjacent cecum the appendix was placed in an Endo Catch bag. The staple line was inspected for hemostasis. There was some initial oozing while the mesoappendix was divided but after utilizing suction windows administrator to closely examine the surgical site there was no ongoing bleeding. After hemostasis was confirmed the appendix was removed from the umbilical port site. Pneumoperitoneum was then evacuated and the supraumbilical port site fascia was closed with #1 Vicryl in a [id number]-cn-hortl fashion. The port sites were infiltrated with 25 mL local anesthetic. The skin of each port site was closed with 4-0 Monocryl in a subcuticular fashion. Steri-Strips and OpSite dressings were applied. Patient tolerated procedure well without any apparent complications. They were awoken from general anesthetic without issue and transferred to post anesthesia care unit for ongoing recovery. Surgical Findings: ? Acutely inflamed appendix whose tip inflammation appeared to involve the subcutaneous tissue adjacent to the cecum but there is no evidence of richy perforation in the appendiceal base was largely spared of any inflammation Complications Complications: No
--- NOTE | 2024-08-14 11:42 | EX.PCM.DISCH ---
Discharge Instructions Diet Discharge Diet: No restrictions Activity Discharge Activity: May Not Drive (No driving while using narcotic pain medication) and May Shower (Postoperative day 1) May shower in (days): 2 Ice area for (Minutes): 20 Lifting Restrictions: No lifting greater than 15 pounds for 2 weeks after surgery Dressing / Incision Call your doctor if your incision/area has: Continuous Slow Oozing, Increased Pain/ Swelling, Increased Redness, Foul Smelling Discharge and Swelling at the incision site Call your doctor if you observe: Fever of 101 or Higher Remove Dressing in: 2 days (Please leave Steri-Strips intact until they fall off spontaneously or are taken off at your follow-up visit) Cleanse incision/area with: Soap & Water Follow Up Care Please Follow Up With: Codey Delvalle MD When: 7-10days postop Test Results: Test results from this visit will be discussed in further detail at your follow-up appointment, if applicable. Discharge Plan Admission Primary Reason for Your Visit: Appendectomy Attending Provider: Codey Delvalle Primary Care Provider: JOYCE CORONADO Instructions Print Language: Citizen Of [place] Discharge Orders/Prescriptions Prescriptions: New oxycodone 5 mg tablet 5 mg PO Q6H PRN (Reason: pain) 3 Days Qty: 10 0RF Continued rizatriptan [Maxalt] 10 mg tablet 10 mg PO ONCE PRN (Reason: migraines) Rx Instructions: may repeat once in >=2 hours carvedilol 25 mg tablet 25 mg PO BID Qty: 60 11RF Rx Instructions: must administer with a meal/food acetaminophen 500 mg Tablet 500 mg PO Q4H PRN PRN (Reason: Pain Score 1-5/10) Qty: 0 0RF ibuprofen 200 mg Tablet 400 mg PO Q6H PRN PRN (Reason: Pain Score 4-10/10) Qty: 0 0RF amlodipine 10 mg tablet 10 mg PO DAILY Qty: 90 3RF lisinopril 10 mg tablet 10 mg PO DAILY Qty: 90 3RF Referrals / Follow Up: JOYCE CORONADO NP-C [Primary Care Provider] - Disposition Disposition (needs filled in before D/C Order can be placed): Home, Self Care
--- NOTE | 2024-08-14 12:26 | PCM.POST.ANE ---
Anesthesia: Postop Eval I Current Vital Signs Temperature: 98.1 F Pulse Rate: 71 Blood Pressure: 134/92 Respiratory Rate: 22 Pulse Ox: 96 Oxygen Delivery Method: Room Air Assessment Airway patent: Yes Spontaneous unlabored respirations: Yes Mental status: Awake and Calm nausea: No Vomiting: No Anesthesia Complication: No Fluid Hydration Crystalloid volume administer (ml): 800 Total IV fluid infused: 800 Progress Note Anesthesia document: Postop Eval 1 completed: Yes
[2024-08-14] MEDS: oxyCODONE 5 MG Tablet PO (13:25)
--- NOTE | 2024-08-14 21:09 | POSTOPAN2_ITS ---
Anesthesia Postop Eval I Sum Postop Eval Completion status Anesthesia document: Postop Eval 1 completed: Yes Anesthesia Postop Eval I Summary Anesthesia Postop Eval I Summary: Anesthesia Postop Eval I: Assessment Summary Airway patent Yes 08/14/24 12:27 MEDICAL PRACTICE [email or web address] Spontaneous unlabored Yes 08/14/24 12:27 MEDICAL PRACTICE [email or web address] respirations Mental status Awake,Calm 08/14/24 12:27 MEDICAL PRACTICE [email or web address] nausea No 08/14/24 12:27 MEDICAL PRACTICE [email or web address] Vomiting No 08/14/24 12:27 MEDICAL PRACTICE [email or web address] Anesthesia Postop Eval I: Fluid Summary Crystalloid volume administer 800 08/14/24 12:27 MEDICAL PRACTICE [email or web address] (ml) Colloids volume administered ( ml) Blood Product volume administered (ml) Total IV fluid infused 800 08/14/24 12:27 MEDICAL PRACTICE [email or web address] Anesthesia Postop Eval I: Summary Notes Anesthesia Complication No 08/14/24 12:27 MEDICAL PRACTICE [email or web address] Anesthesia Complication Comment: Post-operative progress note Anesthesia: Postop Eval II Evaluation Mental status: Awake and Calm Pain Level: 1 nausea: No Vomiting: No Complications Anesthesia Complication: No
--- NOTE | 2024-08-14 21:09 | PCM.POSTANE2 ---
Anesthesia Postop Eval I Sum Postop Eval Completion status Anesthesia document: Postop Eval 1 completed: Yes Anesthesia Postop Eval I Summary Anesthesia Postop Eval I Summary: Anesthesia Postop Eval I: Assessment Summary Airway patent Yes 08/14/24 12:27 CLOTHES [email or web address] Spontaneous unlabored Yes 08/14/24 12:27 CLOTHES [email or web address] respirations Mental status Awake,Calm 08/14/24 12:27 CLOTHES [email or web address] nausea No 08/14/24 12:27 CLOTHES [email or web address] Vomiting No 08/14/24 12:27 CLOTHES [email or web address] Anesthesia Postop Eval I: Fluid Summary Crystalloid volume administer 800 08/14/24 12:27 [email or web address] (ml) Colloids volume administered ( ml) Blood Product volume administered (ml) Total IV fluid infused 800 08/14/24 12:27 CLOTHES [email or web address] Anesthesia Postop Eval I: Summary Notes Anesthesia Complication No 08/14/24 12:27 CLOTHES [email or web address] Anesthesia Complication Comment: Post-operative progress note Anesthesia: Postop Eval II Evaluation Mental status: Awake and Calm Pain Level: 1 nausea: No Vomiting: No Complications Anesthesia Complication: No
== END 2024-08-14 14:41 | disposition home or self-care (01) ==
LOC: ED 09:18 → SDC 09:25 → ACINP 09:26
PROVIDERS: Emergency Provider Emergency Medicine; PCP Nurse Practitioner Family; Visit Provider Surgery
PROC: 0DTJ4ZZ Resection of Appendix, Percutaneous Endoscopic Approach (ICD-10-PCS; CPT 44970; principal; 2024-08-14 09:40)
DX: K35.80 Unspecified acute appendicitis (principal); N20.0 Calculus of kidney; I10 Essential (primary) hypertension; K76.0 Fatty (change of) liver, not elsewhere classified; K59.00 Constipation, unspecified; Z79.899 Other long term (current) drug therapy
CPT/HCPCS: 44970; 00840

== ENCOUNTER 2024-10-11 09:26 | Day surgery (SDC) | payer OTHER, SELFPAY ==
--- NOTE | 2024-10-08 15:23 | PAT.ANESEVAL ---
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 When Was Last Pacemaker Check QUESTION #4 FULL TEXT: You/Your Family Experience fever (hyperthermia) with Anesthesia Last Oral Intake Last Oral intake: Last Oral Intake NPO since Meds taken in AM with sips of water? 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 production: PONV - boring machine operator production Female No 10/08/24 14:27 HX of Motion Sickness Yes 10/08/24 14:27 HX of N/V After Surgery No 10/08/24 14:27 Non-Smoker Yes 10/08/24 14:27 Duration of Surgery greater No 10/08/24 14:27 than 60 minutes Number of Risk Factors 2 10/08/24 14:27 PONV Score Moderate Risk 10/08/24 14:27 Height & Weight Height & Weight: Anesthesia: Height & Weight Height 5 ft 11 in 08/14/24 06:40 Respiratory Assessment Respiratory Assessment - boring machine operator production: Respiratory Tract Infection Hx - boring machine operator production Hx Respiratory Tract Infection No 10/08/24 14:27 STOP Sleep Apnea STOP Sleep Apnea - boring machine operator production: STOP Sleep Apnea - boring machine operator production Hx Hypertension Yes 10/08/24 14:27 Hx Sleep Apnea Yes: BORDERLINE 10/08/24 14:27 CPAP No 10/08/24 14:27 BIPAP No 10/08/24 14:27 Do you snore loudly (louder than talking or can be heard Do you often feel tired/ fatigued/ sleepy during daytime? Has anyone observed you stop breathing during sleep? STOP Results Positive 10/08/24 14:27 QUESTION #5 FULL TEXT : Do you snore loudly (louder than talking or can be heard through closed doors)? 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 Specify any problems Hx of Preganancy in last 3 N/A 10/08/24 14:27 Months Nurse Filling Out Transfusion [place] 10/08/24 14:27 & Questions: Date: 10/08/24 10/08/24 14:27 Time: 14:33 10/08/24 14:27 Patient unable to answer at this time (ie. 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: /Reproductive Hx- boring machine operator production Hx Now Gestational Age (in weeks): EDC: Hx Hx Para Hx Section SAB PFSH Medical History History of renal disease History of echocardiogram Wears contact lenses Alcohol use History of kidney stones Non-smoker Sleep apnea Cardiology follow-up encounter Hypersomnolence Essential hypertension Palpitations Seasonal allergies Migraines Home Medications ?Medication ?Instructions ?Recorded ?Last Taken ?Type rizatriptan 10 mg tablet (Maxalt) 10 mg PO ONCE PRN migraines 08/14/19 Unknown History acetaminophen 500 mg tablet 500 mg PO Q4H PRN PRN Pain Score 01/16/21 Unknown Rx 1-5/10 #0 tabs ibuprofen 200 mg tablet 400 mg (2 x 200 mg) PO Q6H PRN PRN 01/16/21 Unknown Rx Pain Score 4-10/10 #0 tabs carvedilol 25 mg tablet 25 mg PO BID #60 tabs 12/20/23 08/14/24 Rx amlodipine 10 mg tablet 10 mg PO DAILY #90 tabs 02/10/24 08/14/24 Rx lisinopril 10 mg tablet 10 mg PO DAILY #90 tabs 06/22/24 08/14/24 Rx Allergy/AdvReac Type Severity Reaction Status Date / Time hydromorphone (From Dilaudid) Allergy Severe Unknown Verified 08/22/24 13:21 pollen extracts Allergy Severe Unknown Verified 08/22/24 13:21 Family History Sister Hypertension Brother Hypertension Mother Hypertension Heart disease Father Hypertension Surgical History Status post laparoscopic appendectomy Hx of nasal septoplasty History of tonsillectomy (~2015) Social History Smoking Status: Never smoker alcohol intake: current alcohol intake frequency: a few times a month substance use type: does not use caffeine: Yes Type: coffee Number of servings: 1 Audit: Pertinent Findings Pertinent Findings EKG Perinent findings: 12/20/2023. Sinus rhythm. Right axis deviation. Echo (EF%) pertinent findings: 08/23/2019 EF 70%. No evidence for diastolic dysfunction. Consult pertinent findings: Cardiology 06/13/2024. Chronic palpitations stable continue Coreg. Hypertension chronic well-controlled at this time. Recommendation Anesthesia Recommendation Anesthesia recommendation: OPTIMIZED for anesthesia
[2024-10-11] VITALS (8 sets, daily range): BP systolic 107–145; BP diastolic 58–86; PULSE 78–92; RESP 16; TEMP 36.1–36.6; O2SAT 94–98; BMI 36.7
--- NOTE | 2024-10-11 10:22 | PCM.PRE.AN2 ---
ASA Classification* ASA Classification ASA Classification: 2 (HTN controlled on 3 meds) Assessment & Plan Anesthesia* Anesthesia Assessment Anesthesia Assessment: Discussed sedation and/or anesthesia options, risks, benefits, and alternatives with patient/parents/legal guardian/POA. Questions invited. The patient/parents/legal guardian/POA seems to understand and agrees to proceed with anesthesia plan. Reviewed the physical assessment, medical history, allergy history and patient home medications list prior to surgery/procedure/anesthetic and documented any changes. Performed airway and anesthesia risk assessments. Anesthesia Type Anesthesia Type: General History Source History Obtained from:: Patient and Chart Anesthesia Focused Assessment* Temperature: 97.8 F Pulse Rate: 87 Blood Pressure: 145/86 Respiratory Rate: 16 Pulse Ox: 98 Oxygen Delivery Method: Room Air Airway Assessment Mouth opens: >3 cm Mallampati Score: II Teeth Condition: Intact Neck Range of motion (ROM): Full ROM Focused Labs Anesthesia Preop lab: CBC WBC 6.7 K/mm3 (4.4-11.0) 08/14/24 07:00 08/14/24 RBC 4.99 M/mm3 (4.6-6.2) 08/14/24 07:00 08/14/24 Hgb 14.1 g/dL (13.0-16.5) 08/14/24 07:00 08/14/24 Hct 42.2 % (40-54) 08/14/24 07:00 08/14/24 Plt Count 362 K/mm3 (150-450) 08/14/24 07:00 08/14/24 CHEMISTRY Potassium 3.8 mmol/L (3.5-5.1) 08/14/24 07:00 08/14/24 Sodium 139 mmol/L (136-145) 08/14/24 07:00 08/14/24 Phosphorus 3.5 mg/dL (2.5-4.9) 03/24/21 09:00 03/24/21 BUN 17 mg/dL (7-18) 08/14/24 07:00 08/14/24 Creatinine 0.94 mg/dL (0.70-1.30) 08/14/24 07:00 08/14/24 Glucose 122 mg/dL (74-106) H 08/14/24 07:00 08/14/24 TSH 1.34 uIU/mL (0.358-3.74) 08/13/19 16:31 08/13/19 COAG Pre-Assessment Diagnosis/Proposed Procedure Planned Operative Procedure(s): COLONOSCOPY Anesthesia History 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 When Was Last Pacemaker Check QUESTION #4 FULL TEXT: You/Your Family Experience fever (hyperthermia) with Anesthesia Last Oral Intake Last Oral intake: Last Oral Intake NPO since 06:30 10/11/24 09:43 Meds taken in AM with sips of Yes 10/11/24 09:43 water? 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 driver Female No 10/08/24 14:27 HX of Motion Sickness Yes 10/08/24 14:27 HX of N/V After Surgery No 10/08/24 14:27 Non-Smoker Yes 10/08/24 14:27 Duration of Surgery greater No 10/08/24 14:27 than 60 minutes Number of Risk Factors 2 10/08/24 14:27 PONV Score Moderate Risk 10/08/24 14:27 Height & Weight Height & Weight: Anesthesia: Height & Weight Height 5 ft 11 in 10/11/24 09:43 Weight: 119.5 kg 10/11/24 09:43 Body Mass Index (BMI) 36.7 10/11/24 09:43 Respiratory Assessment Respiratory Assessment - residential recycle driver: Respiratory Tract Infection Hx - residential recycle driver Hx Respiratory Tract Infection No 10/08/24 14:27 STOP Sleep Apnea STOP Sleep Apnea - residential recycle driver: STOP Sleep Apnea - residential recycle driver Hx Hypertension Yes 10/08/24 14:27 Hx Sleep Apnea Yes: BORDERLINE 10/08/24 14:27 CPAP No 10/08/24 14:27 BIPAP No 10/08/24 14:27 Do you snore loudly (louder than talking or can be heard Do you often feel tired/ fatigued/ sleepy during daytime? Has anyone observed you stop breathing during sleep? STOP Results Positive 10/08/24 14:27 QUESTION #5 FULL TEXT : Do you snore loudly (louder than talking or can be heard through closed doors)? 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 Specify any problems Hx of Preganancy in last 3 N/A 10/08/24 14:27 Months Nurse Filling Out Transfusion [facility] 10/08/24 14:27 & Questions: Date: 10/08/24 10/08/24 14:27 Time: 14:33 10/08/24 14:27 Patient unable to answer at this time (ie. 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 History - residential recycle driver: /Reproductive Hx- residential recycle driver Hx Now Gestational Age (in weeks): EDC: Hx Hx Para Hx Section SAB PFSH Medical History History of renal disease History of echocardiogram Wears contact lenses Alcohol use History of kidney stones Non-smoker Sleep apnea Cardiology follow-up encounter Hypersomnolence Essential hypertension Palpitations Seasonal allergies Migraines Home Medications ?Medication ?Instructions ?Recorded ?Last Taken ?Type rizatriptan 10 mg tablet (Maxalt) 10 mg PO ONCE PRN migraines 08/14/19 Unknown History acetaminophen 500 mg tablet 500 mg PO Q4H PRN PRN Pain Score 01/16/21 Unknown Rx 1-12/08 #0 tabs ibuprofen 200 mg tablet 400 mg (2 x 200 mg) PO Q6H PRN PRN 01/16/21 Unknown Rx Pain Score 4-05/10 #0 tabs carvedilol 25 mg tablet 25 mg PO BID #60 tabs 12/20/23 10/11/24 06:30 Rx amlodipine 10 mg tablet 10 mg PO DAILY #90 tabs 02/10/24 10/11/24 06:30 Rx lisinopril 10 mg tablet 10 mg PO DAILY #90 tabs 06/22/24 08/14/24 Rx Allergy/AdvReac Type Severity Reaction Status Date / Time hydromorphone (From Dilaudid) Allergy Severe Unknown Verified 10/11/24 09:42 pollen extracts Allergy Severe Unknown Verified 10/11/24 09:42 Family History Sister Hypertension Brother Hypertension Mother Hypertension Heart disease Father Hypertension Surgical History Status post laparoscopic appendectomy Hx of nasal septoplasty History of tonsillectomy (~2015) Social History Smoking Status: Never smoker alcohol intake: current alcohol intake frequency: a few times a month substance use type: does not use caffeine: Yes Type: coffee Number of servings: 1 Prior Cardiac Testing/Procedures Prior Cardiac Testing/Procedures: Echocardiogram (Reason For Study: Palps, HTN Procedure This was a 2D Doppler, Color Flow transthoracic echocardiogram. Exam performed in department. Left Ventricle Normal LV size. The estimated ejection fraction is 70 %. No evidence for diastolic dysfunction. No regional wall motion abnormalities noted. Right Ve) Addt'l Information Additional Findings: ECG Report Interpretation Sinus Rhythm -Right axis -may be normal for age Review of Systems (Anesthesia) ROS Narrative System reviewed and no additional complaints, except as documented. Physical Exam Const alert, oriented x3 and average body habitus Resp normal respiratory effort, normal air movement and clear to auscultation bilaterally Cardio regular rate, regular rhythm, no murmurs and diaphoretic
--- NOTE | 2024-10-11 10:30 | EGD_PTH ---
PATIENT: EDUIN VACA LOC: EN U#:[id number] AGE/SX: 28/M ROOM: RE10/11/[address]: Dr. Codey Delvalle MD : [id number] BED: DIS: 10/11/2024 SPEC #: [id number] RECD: 10/11/24 13:49 STATUS: GIANFRANCO REJd #: [id number] LEXII: 10/11/24 10:[address]: Codey Delvalle DEPT: SURGICAL PATHOLOGY RECD BY: Surinder Singer ENTERED: 10/11/24 13:50 SP TYPE: EGD BIOPSY OTHR DR: JOYCE CORONADO, [employer]-C Tissues: A - Cecum, NOS B - Sigmoid colon biopsy Procedures: Surgery Specimen Level IV HEADER OPERATION: Colonoscopy, biopsy PRE-OP DIAGNOSIS: Encounter for screening for malignant neoplasm of colon TISSUE SUBMITTED: A- Cecum biopsy, B- Distal sigmoid colon polyp biopsy MICROSCOPIC DIAGNOSIS A: CECUM, BIOPSY: * No specific pathologic change. B: DISTAL SIGMOID COLON, POLYP, BIOPSY: * Hyperplastic polyp. MICROSCOPIC DESCRIPTION Slides are reviewed. GROSS DESCRIPTION A. Received in fixative is one container labeled with the patient's name and designated Cecum biopsy. The specimen consists of two irregular fragments of light myers soft tissue that in aggregate measure 0.8 x 0.4 x 0.1 cm. The specimen is totally submitted in one cassette. B. Received in fixative is one container labeled with the patient's name and designated Distal sigmoid colon polyp biopsy. The specimen consists of one irregular fragment of light myers soft tissue that measures 0.4 x 0.3 x 0.2 cm. The specimen is totally submitted in one cassette. 10/11/2024 CPT:47740j7
--- NOTE | 2024-10-11 11:04 | PCM.HP.BLA ---
History and Physical Date of Admission: 10/11/24 Date of Service: 08/22/24 MR#: [id number] Acct: [id number] Name: EDUIN VACA Rep #: [id number] : 1995 Provider: KLEBER Dozier Age/Sex: 28/M Location: [facility] Status: Signed Intake Vital Signs 08/14/2505:40 08/22/2512:20 Height 5 ft 11 in BP 151/74 H Blood Pressure Location Rt brachial Position Sitting Respiration 17 Pulse 97 Pulse Source Monitor Pulse Oximetry (%) 97 Oxygen Delivery Method room air Intake Visit Reasons: APPY - Chief Complaint: appy 08/14, colonoscopy Is patient in pain?: No Allergies hydromorphone (From Dilaudid) Allergy (Severe, Verified 08/22/24 13:21) Unknownpollen extracts Allergy (Severe, Verified 08/22/24 13:21) Unknown Medications ?Medication ?Instructions ?Recorded ?Confirmed ?Type rizatriptan 10 mg tablet (Maxalt) 10 mg PO ONCE PRN migraines 08/14/19 08/22/24 History acetaminophen 500 mg tablet 500 mg PO Q4H PRN PRN Pain Score 01/16/21 08/22/24 Rx 1-5/10 #0 tabs ibuprofen 200 mg tablet 400 mg (2 x 200 mg) PO Q6H PRN PRN 01/16/21 08/22/24 Rx Pain Score 4-10/10 #0 tabs carvedilol 25 mg tablet 25 mg PO BID #60 tabs 12/20/23 08/22/24 Rx amlodipine 10 mg tablet 10 mg PO DAILY #90 tabs 02/10/24 08/22/24 Rx lisinopril 10 mg tablet 10 mg PO DAILY #90 tabs 06/22/24 08/22/24 Rx PFSH Medical History (Updated 08/22/24 @ 13:20 by Niru Eisenberg) Wears contact lenses Alcohol use History of kidney stones Non-smoker Sleep apnea Cardiology follow-up encounter Hypersomnolence Essential hypertension Palpitations Seasonal allergies Migraines Surgical History (Updated 08/22/24 @ 12:53 by Niru Eisenberg) Status post laparoscopic appendectomy Hx of nasal septoplasty History of tonsillectomy (~2015) Family History Sister HypertensionBrother HypertensionMother Hypertension Heart diseaseFather Hypertension Social History Smoking Status: Never smoker alcohol intake: current alcohol intake frequency: a few times a month substance use type: does not use caffeine: Yes Type: coffee Number of servings: 1 HPI HPI Surgical H&P: Yes HPI: Patient is a 28 y/o M I am following s/p laparoscopic appendectomy by Dr. Delvalle on 08/14/24. Patient tolerated the procedure well. Patient denies any right lower quadrant pain. He notes he had pain in the right lower quadrant intermittently for 3 years. He was always told this was kidney stone related. He notes since the procedure, he feels significantly improved. He denies any nausea, vomiting, fever. He notes appetite and bowel habits have returned to normal. Pathology demonstrated acute periappendicitis. No atypical cells or cancer cells. However, this pathology is more concerning for an inflammatory process suspicious for inflammatory bowel. He denies any bowel habits changes recently. He does note multiple bowel movements daily with lots of flatus production. He denies any rectal bleeding or melena. He notes his brother was worked up for bowel disease, which all returned as negative. he notes his sister was recently diagnosed with celiac disease. He states when he consumes beer, bread or other gluten-containing products, he notes an increase in bowel function to more loose stools. He denies any family history of colon cancer or inflammatory bowel disease. He denies any previous colonoscopy. He denies being on any blood thinners or weight loss medication. ROS General General: No weight change, appetite, fatigue, colon cancer, breast cancer or weakness HEENT HEENT: No difficulty swallowing, eye injury, eye surgery, swollen glands or hoarseness Endo Endocrine: No thyroid disease, diabetes mellitus, thyroid cancer, Hair loss, heat intolerance or cold intolerance Skin Skin: No rash or changing moles Musc Musculoskeletal: No back problems, arthritis, rheumatoid arthritis, gout or joint pain Cardio Cardiovascular: Yes high blood pressure; No murmur, pacemaker, heart disease, atrial fibrillation, heart attack, heart stent, palpitations, shortness of breat with exertion or chest pain Psych Psychiatric: No depression, anxiety or hearing voices Resp Respiratory: No shortness of breath, No sleep apnea, No cough, No COPD, No asthma, No emphysema and No wheezing Gastro Gastrointestinal: No abdominal pain, No nausea or vomiting, Yes diarrhea, No constipation, No blood in stool, No acid reflux, No hemorrhoids, No ulcers, No gallbladder problem and No black,tarry stools [place] Hematologic: No blood thinners, No blood disorders, No bleeding, No anemia and No blood clots Neuro Neurologic: No system reviewed and no additional complaints, except as documented, No as per HPI, No abnormal gait, No abnormal hearing, No abnormal movements, No abnormal speech, No behavioral changes, No burning sensations, No confusion, No convulsions, No disequilibrium, No dizziness, No localized weakness, No frequent falls, No headache(s), No lack of coordination, No loss of vision, No memory loss, No numbness, No other visual disturbances, No radicular pain, No restless legs, No sensory deficit, No syncope, No tingling, No tremor(s), No weakness and No other Exam Const General: cooperative, healthy appearing, comfortable and no acute distress [facility] Head: normal to inspection Eyes General: appearance normal, both eyes and all related structures Neck Neck: normal visual inspection Neck mass: No Resp Effort & Inspection: normal respiratory effort Auscultation: clear to auscultation bilaterally Cardio Rate: regular rate Rhythm: regular rhythm GI Inspection: normal to inspection Palpation: soft Auscultation: normal bowel sounds Musc Cervical Spine: normal cervical lordosis Skin General: no rashes or lesions noted Neuro General: no focal motor deficits and CN's II-XI intact bilaterally Extrem General: normal to inspection Psych Appearance: grossly normal Affect: normal affect Assessment and Plan Assessment and Plan (1) Encounter for screening for malignant neoplasm of colon: Status: Acute Plan: Dr. Delvalle will plan to perform a colonoscopy with possible biopsies. Patient would like a biopsy for celiac disease if possible. Procedure details, risks and benefits have been explained. Patient will proceed with a 2 day bowel prep. Patient has had the opportunity to ask and have questions answered. Patient verbally understands and agrees with the plan. (2) Status post laparoscopic appendectomy: Status: Acute Plan: Recommend no lifting greater than 20 pounds for 2 additional weeks May RTW next Tuesday Follow-up as needed I have examined the patient the following changes are noted: Patient 28-year-old male status post laparoscopic appendectomy on 08/14/2024 with final pathology demonstrating just periappendiceal inflammation. He had also describes some erratic bowel habits leading up to the operation. With this I was concerned for possible alter explanation for his symptoms and with final pathology this suspicion was confirmed. I thus recommended we follow-up his surgery with a formal colonoscopy and evaluation of his cecum and he presents for that procedure today. He provides an interval history that he is felt better in the interval since his surgery than he has in years. He denies any GI complaints. He confirms he completed prep for today's procedure and his output is now clear. Abdominal exam is benign. Will proceed to endoscopy suite for colonoscopy as planned.
--- NOTE | 2024-10-11 11:44 | OP.COLON_ITS ---
Patient Name: Black Chavez Procedure Date: 10/11/2024 10:56 AM Date of : 1995 Age: 28 Procedure: Colonoscopy Indications: Abnormal CT of the GI tract, Unusual pathology following appendectomy Providers: Codey Delvalle MD Referring MD: Bisi Ingram Medicines: Monitored Anesthesia Care Patient Profile: Last Colonoscopy: none. The patient's first colonoscopy is today. Complications: No immediate complications. Estimated blood loss: Minimal. Procedure: Pre-Anesthesia Assessment: - The heart rate, respiratory rate, oxygen saturations, blood pressure, adequacy of pulmonary ventilation, and response to care were monitored throughout the procedure. After I obtained informed consent, the scope was passed under direct vision. Throughout the procedure, the patient's blood pressure, pulse, and oxygen saturations were monitored continuously. The pediatric colonoscope was introduced through the anus and advanced to the ileocecal valve. The colonoscopy was performed without difficulty. The patient tolerated the procedure well. The quality of the bowel preparation was adequate to identify polyps. Scope In: 11:15:37 AM Scope Withdrawal Time 0 hours 17 minutes 3 seconds Scope Out: 11:38:46 AM Total Procedure Duration Time 0 hours 23 minutes 9 seconds Findings: The perianal and digital rectal examinations were normal. Normal mucosa was found in the cecum. Biopsies were taken with a cold forceps for histology. Estimated blood loss was minimal. A 5 mm, non-bleeding polyp was found in the distal sigmoid colon. The polyp was semi-sessile. Biopsies were taken with a cold forceps for histology. Estimated blood loss was minimal. The exam was otherwise without abnormality on direct and retroflexion views. Impression: - Normal mucosa in the cecum. Biopsied. - One 5 mm, non-bleeding polyp in the distal sigmoid colon. Biopsied. - The examination was otherwise normal on direct and retroflexion views. Recommendation: - Discharge patient to home (via wheelchair). - Resume previous diet today. - No aspirin, ibuprofen, naproxen, or other non-steroidal anti-inflammatory drugs for 2 days after biopsy. - Await pathology results. - Repeat colonoscopy date to be determined after pending pathology results are reviewed for surveillance based on pathology results. - Telephone my office for pathology results in 1 week. Procedure Code(s): --- Professional --- 04495, Colonoscopy, flexible; with biopsy, single or multiple Diagnosis Code(s): --- Professional --- D12.5, Benign neoplasm of sigmoid colon R93.3, Abnormal findings on diagnostic imaging of other parts of digestive tract CPT copyright 2021 [employer]. All rights reserved. The codes documented in this report are preliminary and upon family partner review may be revised to meet current compliance requirements. Codey Delvalle MD 10/11/2024 11:44:30 AM This report has been signed electronically. Number of Addenda: 0 Note Initiated On: 10/11/2024 10:56 AM
--- NOTE | 2024-10-11 11:45 | OP.CCLET_ITS ---
10/11/2024 Bisi Ingram Re : Colonoscopy procedure for Black Chavez Dear Angela This procedure was performed on September. My impressions and recommendations are as follows: Impressions : - Normal mucosa in the cecum. Biopsied. - One 5 mm, non-bleeding polyp in the distal sigmoid colon. Biopsied. - The examination was otherwise normal on direct and retroflexion views. Recommendations : - Discharge patient to home (via wheelchair). - Resume previous diet today. - No aspirin, ibuprofen, naproxen, or other non-steroidal anti-inflammatory drugs for 2 days after biopsy. - Await pathology results. - Repeat colonoscopy date to be determined after pending pathology results are reviewed for surveillance based on pathology results. - Telephone my office for pathology results in 1 week. My findings are described in the full procedure note, which is enclosed. If I can be of further assistance, please feel free to contact me at Doctor phone number(s): , Work: . Sincerely, Codey Delvalle MD 10/11/2024 11:44:30 AM This report has been signed electronically.
--- NOTE | 2024-10-11 11:50 | PCM.POST.ANE ---
Anesthesia: Postop Eval I Current Vital Signs Temperature: 97 F Pulse Rate: 80 Blood Pressure: 107/58 Respiratory Rate: 16 Pulse Ox: 97 Oxygen Delivery Method: Room Air Assessment Airway patent: Yes Spontaneous unlabored respirations: Yes Mental status: Awake nausea: No Vomiting: No Anesthesia Complication: No Fluid Hydration Crystalloid volume administer (ml): 80 Total IV fluid infused: 80 Progress Note Anesthesia document: Postop Eval 1 completed: Yes
--- NOTE | 2024-10-11 12:36 | PCM.POSTANE2 ---
Anesthesia Postop Eval I Sum Postop Eval Completion status Anesthesia document: Postop Eval 1 completed: Yes Anesthesia Postop Eval I Summary Anesthesia Postop Eval I Summary: Anesthesia Postop Eval I: Assessment Summary Airway patent Yes 10/11/24 11:51 [email or web address] Spontaneous unlabored Yes 10/11/24 11:51 [email or web address] respirations Mental status Awake 10/11/24 11:51 [email or web address] nausea No 10/11/24 11:51 [email or web address] Vomiting No 10/11/24 11:51 [email or web address] Anesthesia Postop Eval I: Fluid Summary Crystalloid volume administer 80 10/11/24 11:51 [email or web address] (ml) Colloids volume administered ( ml) Blood Product volume administered (ml) Total IV fluid infused 80 10/11/24 11:51 [email or web address] Anesthesia Postop Eval I: Summary Notes Anesthesia Complication No 10/11/24 11:51 [email or web address] Anesthesia Complication Comment: Post-operative progress note Anesthesia: Postop Eval II Evaluation Mental status: Awake Pain Level: 0 nausea: No Vomiting: No Complications Anesthesia Complication: No
== END 2024-10-11 12:19 | disposition home or self-care (01) ==
LOC: EN 09:26 → AC 09:27
PROVIDERS: PCP Nurse Practitioner Family; Referring Provider Nurse Practitioner Family; Visit Provider Surgery
PROC: 0DJD8ZZ Inspection of Lower Intestinal Tract, Via Natural or Artificial Opening Endoscopic (ICD-10-PCS; CPT 45378; principal; 2024-10-11 10:25)
DX: Z12.11 Encounter for screening for malignant neoplasm of colon (principal); K63.5 Polyp of colon; I10 Essential (primary) hypertension; G43.909 Migraine, unspecified, not intractable, without status migrainosus; Z79.899 Other long term (current) drug therapy; Z90.89 Acquired absence of other organs
CPT/HCPCS: 45380; 88305; A4216; J2405

== ENCOUNTER 2025-04-13 08:04 | Emergency (ER) | payer OTHER, SELFPAY ==
[2025-04-13 08:05] VITALS: BP 156/91; PULSE 87; RESP 17; TEMP 36.8; O2SAT 97; BMI 37.3
--- NOTE | 2025-04-13 08:14 | CT_ITS ---
PROCEDURE: ABDOMEN/PELVIS W IV CONT ONLY 04/13/2025 REASON FOR EXAM: RLQ PAIN, RECENT APPENDECTOMY Previous appendectomy. TECHNIQUE: Procedure Code: [id number] Modality: CT Procedure: ABDOMEN/PELVIS W IV CONT ONLY Coronal and Sagittal reconstruction series were provided. CONTRAST: Isovue 370 VOLUME: 90 mL One or more dose reduction techniques were used (e.g., Automated exposure control, adjustment of the mA and/or kV according to patient size, use of iterative reconstruction technique. RADIATION DOSE SUMMARY: CTDlvol: 20.6 mGy DLP: 1132 mGycm COMPARISON: August 2024. FINDINGS: Lung bases: Negative. ABDOMEN Liver: [id number] fatty infiltration of the liver. Otherwise negative. Biliary system: Negative. Negative for intrahepatic or extrahepatic ductal dilatation. Gallbladder: Negative. Negative for cholecystitis. Spleen: Negative. Pancreas: Negative. Adrenals: Negative. Kidneys: Numerous simple renal cysts. Negative for kidney stones, cysts or masses. Bowel: Mild increased stool throughout the colon with occasional diverticula. Negative for small or large-bowel obstruction. Appendix: Previously removed. Mild area of inflammation and possible epiploic appendagitis at the surgical site. Vasculature: Negative for atherosclerotic vascular calcifications of the abdominal aorta and its branches. Peritoneum / Retroperitoneum: Negative. PELVIS Lymph nodes: Negative for inguinal or iliac adenopathy. Bladder: Negative Reproductive Organs: Prostate negative Bones and Soft Tissues: Age appropriate degenerative changes of the lumbar spine hips and pelvis. CT/Abdomen/Pelvis W IV Cont ONLY IMPRESSION: Appendectomy with minimal adjacent inflammation. Likely postoperative in natur e. Please confirm appendectomy was within the last six-months. No abscess. Reading Location: [id number]
--- NOTE | 2025-04-13 08:15 | ED.VIS.GI ---
HPI HPI - GI History of Present Illness Chief Complaint: Abd Pain Informant: patient Narrative Narrative: 29-year-old male had an appendectomy 6 months ago, and for the past week he has had gradual onset of right lower quadrant/flank pain, it started periumbilical, it is colicky. No associated nausea, vomiting, urinary symptoms, or blood in his stool. He is having some diarrhea occasionally but that is not uncommon related to his irritable bowel syndrome. However he has never had pain like this except for when he had his appendicitis and this is reminiscent of that. He denies any fevers, chills, or other systemic symptoms. Couple weeks ago, patient suspects he had a viral cold and he had what felt like swollen lymph nodes all over. [facility] Medical History History of renal disease History of echocardiogram Wears contact lenses Alcohol use History of kidney stones Non-smoker Sleep apnea Cardiology follow-up encounter Hypersomnolence Essential hypertension Palpitations Seasonal allergies Migraines Home Medications ?Medication ?Instructions ?Recorded ?Last Taken ?Type rizatriptan 10 mg tablet (Maxalt) 10 mg PO ONCE PRN migraines 08/14/19 Unknown History acetaminophen 500 mg tablet 500 mg PO Q4H PRN PRN Pain Score 01/16/21 04/12/25 Rx 1-5/10 #0 tabs ibuprofen 200 mg tablet 400 mg (2 x 200 mg) PO Q6H PRN PRN 01/16/21 Unknown Rx Pain Score 4-10/10 #0 tabs lisinopril 10 mg tablet 10 mg PO DAILY #90 tabs 06/22/24 04/13/25 Rx carvedilol 25 mg tablet 25 mg PO BID #180 tabs 01/03/25 04/13/25 Rx amlodipine 10 mg tablet 10 mg PO DAILY #90 tabs 02/13/25 04/13/25 Rx amoxicillin 875 mg-potassium 875 mg PO Q12H #20 TABLETS 04/13/25 Unknown Rx clavulanate 125 mg tablet cetirizine 10 mg tablet (24Hour 10 mg PO DAILY 04/13/25 04/12/25 History Allergy) tramadol 50 mg tablet 50 mg PO Q6H PRN pain 3 days #10 04/13/25 Unknown Rx tabs Allergy/AdvReac Type Severity Reaction Status Date / Time hydromorphone (From Dilaudid) Allergy Severe Unknown Verified 04/13/25 08:08 pollen extracts Allergy Severe Unknown Verified 04/13/25 08:08 Family History Sister Hypertension Brother Hypertension Mother Hypertension Heart disease Father Hypertension Surgical History Status post laparoscopic appendectomy Hx of nasal septoplasty History of tonsillectomy (~2016) Social History Smoking Status: Never smoker alcohol intake: current alcohol intake frequency: a few times a month substance use type: does not use caffeine: Yes Type: coffee Number of servings: 1 ROS ROS ED Constitutional Constitutional ED: Denies chills or fever(s) Eyes Eyes: Denies change in vision or diplopia ENT ENT ED: Denies rhinorrhea or sore throat Cardiovascular Cardiovascular: Denies chest pain or palpitations Respiratory/Chest Respiratory/Chest: Denies cough or dyspnea Gastrointestinal Gastrointestinal: Reports abdominal pain and diarrhea; Denies melena, nausea or vomiting Genitourinary Genitourinary ED: Denies dysuria or hematuria Musculoskeletal Musculoskeletal: Denies back pain or neck pain Integumentary Denies abscess or rash Neurologic Neurologic: Denies headache(s), paresthesias or weakness Psychiatric Psychiatric: Denies anxiety or suicidal thoughts EXAM Physical Exam Const Vital Signs: 04/13/25 08:05 Temperature 98.2 F Temperature Source Temporal Pulse Rate 87 Respiratory Rate 17 Blood Pressure 156/91 H Blood Pressure Mean 112 Pulse Ox 97 Oxygen Delivery Method Room Air Positive well nourished and well developed General Appearance ED: well developed and NAD HEENT Reports moist mucous membranes normocephalic and atraumatic Eyes PERRL and EOMs intact bilaterally Neck full ROM and supple Resp normal respiratory effort and clear to auscultation bilaterally Cardio regular rate, regular rhythm and no murmurs GI non-distended GI Narrative: Tender in the right lower quadrant and laterally into the anterolateral flank, but no higher than mid abdomen. The right upper quadrant is nontender. Negative psoas, negative obturator, no rebound tenderness, negative Rovsing. No guarding. No other areas of tenderness including suprapubic and left. Auscultation: normoactive bowel sounds Palpation: soft Back/Spine no CVA tenderness General Back: other FROM Extremity normal to inspection General Extremety ED: Negative for edema, pulses abnormal or tenderness General Extremity: Negative for edema or pulses abnormal Neuro oriented x3, CN's II-XII intact bilaterally and no sensory deficits noted Sensorium / Orientation: awake and alert Motor Exam: strength 5/5 throughout Skin no rashes or lesions noted and no wounds MDM MDM MDM Narrative Medical decision making narrative: Differential includes mesenteric adenopathy/adenitis, given the history of some swollen lymph nodes recently, also rare delayed postoperative complications from his appendix surgery such as stump appendicitis, intra-abdominal abscess although I think if the latter were the case he would have a positive psoas and/or systemic symptoms, as well as unrelated issues that may or may not be related to his irritable bowel syndrome or other GI etiologies. I think a CT is reasonable and indicated here, so we obtained labs, urinalysis, as well as a an IV contrasted CT as I think kidney stone although in the differential is much less likely given how tender he is. The labs are unremarkable he has no significant leukocytosis or left shift, urine shows trace microscopic immaturity but otherwise unremarkable. I reviewed the CT images as well as result which I agree with, there is an area of inflammation near the prior appendectomy. I discussed this with Dr. Pringle on for surgery; Dr. Delvalle did his surgery 6 months ago. We discussed the possibility of stump appendicitis, although that is not common or necessarily likely depending on whether there was a small cavity left during the surgery or not. The scan was done without p.o. contrast. At this time given his normal blood work and nontoxic clinical exam, he recommends oral Augmentin and close outpatient follow-up after the weekend with surgery. Patient is comfortable with that plan. Lab Data Attestation: I reviewed the patient's lab results. Labs: Laboratory Results - last 24 hr 04/13/25 04/13/25 08:15 08:39 WBC 9.6 RBC 5.08 Hgb 14.4 Hct 42.9 MCV 84.4 MCH 28.3 MCHC 33.6 RDW Std Deviation 37.6 RDW Coeff of [place] 12.3 Plt Count 356 MPV 8.7 Immature Gran % (Auto) 0.300 Neut % (Auto) 64.0 Lymph % (Auto) 25.0 Hughes % (Auto) 8.1 Eos % (Auto) 2.1 Baso % (Auto) 0.5 Absolute Neuts (auto) 6.2 Absolute Lymphs (auto) 2.41 Nucleated RBC % 0 Sodium 138 Potassium 4.0 Chloride 104 Carbon Dioxide 23.0 Anion Gap 12 BUN 13 Creatinine 0.78 Estim Creat Clear Calc 185.12 Est GFR (MDRD) Non-Af 124 BUN/Creatinine Ratio 16.4 Glucose 108 H Calcium 10.1 Total Bilirubin 0.35 AST 25 ALT 54 H Alkaline Phosphatase 70 Total Protein 7.6 Albumin 4.6 Globulin 2.9 Albumin/Globulin Ratio 1.6 Urine Color Yellow Urine Clarity Clear Urine pH 6.0 Ur Specific [place] 1.020 Urine Protein 30 H Urine Glucose (UA) Normal Urine Ketones Negative Urine Occult Blood 50 H Urine Nitrite Negative Urine Bilirubin Negative Urine Urobilinogen Normal Ur Leukocyte Esterase Negative Urine RBC 0 SEEN Urine WBC 0 SEEN Ur Squamous Epith Cells 0 SEEN Urine Bacteria RARE Urine Mucus 1+ Radiography Diagnostic Testing: Clinical Impression(s) from Imaging Studies Abdomen/Pelvis CT 04/13/25 08:14 IMPRESSION: Appendectomy with minimal adjacent inflammation. Likely postoperative in nature. Please confirm appendectomy was within the last six-months. No abscess. Reading Location: [id number] Management Discussion w/another healthcare provider: Registered Nurse Maternal Child (surgery) Discharge Plan Triage Chief Complaint: Abd Pain ED Provider: Junior Kraus Dx/Rx/DC Orders Clinical Impression: Abdominal pain, right lower quadrant Instructions: Abdominal Pain Prescriptions: New amoxicillin-pot clavulanate 875-125 mg tablet 875 mg PO Q12H Qty: 20 0RF tramadol 50 mg tablet 50 mg PO Q6H PRN (Reason: pain) 3 Days Qty: 10 0RF No Action rizatriptan [Maxalt] 10 mg tablet 10 mg PO ONCE PRN (Reason: migraines) Rx Instructions: may repeat once in >=2 hours acetaminophen 500 mg Tablet 500 mg PO Q4H PRN PRN (Reason: Pain Score 1-5/10) Qty: 0 0RF ibuprofen 200 mg Tablet 400 mg PO Q6H PRN PRN (Reason: Pain Score 4-10/10) Qty: 0 0RF cetirizine [24Hour Allergy] 10 mg tablet 10 mg PO DAILY lisinopril 10 mg tablet 10 mg PO DAILY Qty: 90 3RF carvedilol 25 mg tablet 25 mg PO BID Qty: 180 3RF Rx Instructions: must administer with a meal/food amlodipine 10 mg tablet 10 mg PO DAILY Qty: 90 3RF Primary Care Provider: JOYCE CORONADO Referrals: Codey Delvalle MD [Med Staff - Active Staff] - As soon as possible Print Language: Bhutanese Disposition Disposition: Home, Self Care
[2025-04-13] MEDS: Ketorolac 30 MG/ML Syringe IV (08:21)
[2025-04-13 08:22] LABS: Hematocrit 42.9 % (40-54); Hemoglobin 14.4 g/dL (13.0-16.5); Immature Granulocytes Count 0.030 X10^3/uL (0.0-0.0); Mean Corp Hgb Conc 33.6 g/dL (32-36); Mean Corpuscular Volume 84.4 fL (80-94); Mean Platelet Vol. 8.7 fl (6.2-12.0); NRBC Flagged by Analyzer 0 % (0-5); Platelet Count 356 K/mm3 (150-450); RBC Distribution Width CV 12.3 % (11.6-14.6); RBC Distribution Width SD 37.6 fl (35.1-43.9); Red Blood Count 5.08 M/mm3 (4.6-6.2); White Blood Count 9.6 K/mm3 (4.4-11.0)
--- OUTSIDE RECORDS SUMMARY | 2025-04-13 08:38 | XMS RPT_ITS | CCD ---
Author Organization [facility] Care Team Providers Care Farm Equipment Engineer Name Role Phone Noling, Laurie L Attending Unavailable Kotnik, Laurie A Primary Care Unavailable Noling, Laurie L Attending Unavailable Weston Gomes Attending Unavailable Kotnik, Laurie A Primary Care Unavailable Kotnik, Laurie A Primary Care Unavailable Noling, Laurie L Attending Unavailable Noling, Laurie L Primary Care Unavailable Noling COMMERCIAL LOAN OFFICER.Laurie HARDEN L Primary Care Provider Noling COMMERCIAL LOAN OFFICER.Kenyatta HARDENcy L Primary Care Provider Dr. Bruce Gastelum Attending Provider Noling COMMERCIAL LOAN OFFICER.FINA, Laurie L Primary Care Provider NOLING, LAURIE L Attending Unavailable NOLING, LAURIE L Referring Unavailable NOLING, LAURIE L Primary Care Unavailable NOLING, LAURIE Referring Unavailable NOLING, LAURIE Primary Care Unavailable Codey Delvalle Attending Unavailable NOLING, LAURIE Primary Care Unavailable Codey Delvalle Attending Unavailable NOLING, LAURIE Primary Care Unavailable Bruce Gastelum Attending Unavailabl e NOLING, LAURIE Referring Unavailable Thu Dozier Attending Unavailable NOLING, LAURIE Referring Unavailable NOLING, LAURIE Primary Care Unavailable Bruce Gastelum Attending Unavailabl e NOLING, LAURIE Primary Care Unavailable NOLING, LAURIE Referring Unavailable NOLING, LAURIE Primary Care Unavailable Bruce Gastelum Attending Unavailabl e NOLING, LAURIE Referring Unavailable NOLING, LAURIE Referring Unavailable NOLING, LAURIE Primary Care Unavailable Codey Delvalle Consulting Unavailable Codey Delvalle Attending Unavailable NOLING, LAURIE Primary Care Unavailable Codey Delvalle Consulting Unavailable Codey Delvalle Attending Unavailable Bruce Gastelum Attending Unavailabl e NOLING, LAURIE Primary Care Unavailable NOLING, LAURIE Referring Unavailable NOLING CORRECTION OFFICER-C, LAURIE Primary Care Provider NOLING CORRECTION OFFICER-C, LAURIE Referring Provider Nirav LUNA, Dr. Barrera Attending Provider Dr. Tay Pinto MD Emergency Provider Dr. Codey Delvalle MD Attending Provider Dr. Codey Delvalle MD Other Provider [phone] Thu Dozier PA-C Attending Provider Allergies Allergy Classification Reported Allergen(s) Allergy Type Date of Onset Reaction(s) Facility (16 sources) HYDROmorphone; Translations: [HYDROMORPHONE] Drug Allergy 8 Other: See Comments [facility] (10 sources) Pollen; Translations: [pollen extracts] Drug Allergy 8 Unknown, Other: See Comments [facility] (1 source) HYDROmorphone Drug Allergy 5 [facility] Repository Medications Current Medications Medication Drug Class(es) Dates Sig (Normalized) Sig (Original) acetaminophen 500 mg oral tablet (5 sources) Start: 01-16-2021 take 1 tablet by mouth every four hours as needed for pain Acetaminophen 500 mg Tablet Active 500 mg PO EVERY 4 HOURS NEEDED as needed for Pain Score 1-5/10 0 January 16, 2021 12:00am amLODIPine 10 mg oral tablet (20 sources) Dihydropyridine Calcium Channel Lamont Start: 02-12-2020 End: 02-10-2024 take 1 tablet by mouth once daily Amlodipine 10 mg tablet Active 10 mg PO DAILY 90 February 10, 2024 8:05am Start: 08-13-2019 End: 02-12-2020 take 1 tablet by mouth once daily Amlodipine 5 mg tablet Discontinued 5 mg PO DAILY October 16, 2019 2:39pm February 12, 2020 9:11am Comment on above: Take 1 tablet by aj th once daily. carvedilol 25 mg oral tablet (20 sources) alpha-Adrenergic Lamont, beta-Adrenergic Lamont Start: 12-20-2023 take 1 tablet by mouth twice daily at mealtime carvedilol (COREG) 25 mg tablet Take 25 mg by mouth two times a day with meals. 09/17/2024 Active Start: 12-22-2022 End: 12-20-2023 take 1 tablet by mouth twice daily at mealtime Carvedilol 12.5 mg tablet Discontinued 0 .ROUTE .COMPLEX 180 December 09, 2023 12:51pm December 20, 2023 11:39am TAKE 1 TABLET BY MOUTH 2 TIMES A DAY MUST ADMINISTER WITH A MEAL/FOOD Start: 06-08-2022 End: 12-22-2022 Carvedilol 12.5 mg tablet Discontinued 18.75 mg PO TWICE A DAY 270 June 15, 2022 12:53pm December 22, 2022 1:09pm must administer with a meal/food Start: 05-06-2022 End: 09-19-2024 take 1.5 tablets by mouth once daily carvedilol (COREG) 12.5 mg tablet Take 1.5 tablets by mouth once daily. 05/06/2022 09/19/2024 Discontinued (Changing Therapy/Dosage Form) Start: 05-06-2022 End: 12-22-2022 take 18.75 mg by mouth twice daily at mealtime Carvedilol Discontinued 18.75 MG PO TWICE A DAY 270 June 15, 2022 11:53am December 22, 2022 12:09pm must administer with a meal/food Start: 04-15-2020 End: 06-08-2022 take 1 tablet by mouth twice daily at mealtime Carvedilol 12.5 mg tablet Discontinued 0 .ROUTE .COMPLEX 180 May 06, 2022 8:27am June 08, 2022 2:30pm TAKE 1 TABLET BY MOUTH 2 TIMES A DAY MUST ADMINISTER WITH A MEAL/FOOD Start: 08-14-2019 End: 04-15-2020 take 1 tablet by mouth twice daily at mealtime Carvedilol 6.25 mg tablet Discontinued 6.25 mg PO TWICE A DAY 60 August 14, 2019 1:00am April 15, 2020 2:23pm must administer with a meal/food Comment on above: Take 1.5 tablets by mouth once daily. ibuprofen 200 mg oral tablet (5 sources) Nonsteroidal Anti-inflammatory Drug Start: 01-16-2021 take 2 tablets by mouth every six hours as needed for pain Ibuprofen 200 mg Tablet Active 400 mg PO EVERY 6 HOURS NEEDED as needed for Pain Score 4-10/10 0 January 16, 2021 12:00am Start: 01-16-2021 take 400 mg by mouth every six hours as needed Ibuprofen Active 400 MG PO EVERY 6 HOURS NEEDED 0 January 15, 2021 11:00pm ketoconazole 20 mg/ml topical cream (6 sources) Azole Antifungal Start: 03-25-2023 ketoconazole (NIZORAL) 2 % cream 03/25/2023 Active lisinopril 10 mg oral tablet (18 sources) Angiotensin Converting Enzyme Inhibitor Start: 03-13-2022 End: 06-22-2024 take 1 tablet by mouth once daily Lisinopril 10 mg tablet Active 10 mg PO DAILY June 22, 2024 3:48pm Comment on above: Take 1 tablet by aj th once daily. rizatriptan 10 mg disintegrating oral tablet (16 sources) Serotonin-1b and Serotonin-1d Receptor Agonist Start: 04-29-2023 take 1 tablet by mouth once daily as needed rizatriptan (MAXALT FELLER SEAM OPERATOR) 10 mg disintegrating tablet TAKE 1 TABLET BY MOUTH ONCE DAILY NEEDED FOR MIGRAINE 9 tablet 04/29/2023 Active Start: 08-14-2019 take 1 tablet by aj th once as needed Rizatriptan (Maxalt) 10 mg tablet Active 10 mg PO ONCE as needed for migraines August 14, 2019 1:00am may repeat once in >=2 hours Start: 08-14-2019 End: 04-29-2023 Rizatriptan (Maxalt) 10 mg t ablet Active 10 MG PO ONCE August 14, 2019 12:00am may repeat once in >=2 hours Comment on above: Take 10 mg by mouth as needed. TAKE 1 TABLET BY AJ TH ONCE DAILY NEEDED FOR MIGRAINE Completed/Discontinued Medications Medication Drug Class(es) Dates Sig (Normalized) Sig (Original) azithromycin 500 mg oral tablet (5 sources) Macrolide Antimicrobial Start: 12-09-19 End: 12-12-19 take 1 tablet by mouth once daily Azithromycin 500 mg tablet Discontinued 500 mg PO DAILY 3 3 December 08, 2021 12:00am December 10, 2021 12:00am December 11, 2021 12:04am dicyclomine hydrochloride 20 mg oral tablet (5 sources) Anticholinergic Start: 09-12-19 End: 12-23-19 take 1 tablet by mouth three times daily Dicyclomine 20 mg tablet Discontinued 20 mg PO THREE TIMES A DAY September 12, 2022 1:00am December 22, 2022 1:09pm hydroCHLOROthiazide 25 mg oral tablet (10 sources) Thiazide Diuretic Start: 10-14-19 End: 03-13-20 take 1 tablet by mouth once daily Hydrochlorothiazide 25 mg tablet Discontinued 25 mg PO DAILY October 13, 2021 4:10pm March 13, 2022 8:51am ondansetron 4 mg disintegrating oral tablet (5 sources) Serotonin-3 Receptor Antagonist Start: 09-12-19 End: 12-23-19 take 1 tablet by mouth every eight hours as needed for nausea Ondansetron 4 mg tablet,disintegrating Discontinued 4 mg PO EVERY 8 HOURS NEEDED as needed for Nausea September 12, 2022 1:00am December 22, 2022 1:09pm oxyCODONE hydrochloride 5 mg oral tablet (1 source) Opioid Agonist Start: 08-14-19 End: 08-22-19 take 1 tablet by mouth every six hours as needed for pain Oxycodone 5 mg tablet Discontinued 5 mg PO EVERY 6 HOURS as needed for pain 05 03August 14, 2024 August 22, 2024 1:52pm predniSONE 10 mg oral tablet (5 sources) Start: 03-13-20 End: 06-08-20 Prednisone 10 mg tablet Discontinued 10 mg PO .COMPLEX March 13, 2022 12:00am June 08, 2022 2:05pm Take 4 pills for 3 days, 3 pills for 3 days, 2 pills for 3 days, take 1 pill for 3 days Problems Active Problems Problem Classification Problem Date Documented Da te Episodic/Chronic Abdominal pain (4 sources) Right lower quadrant pain; Translations: [Right lower quadrant pain] Episodic Administrative/social admission (5 sources) General problem AND/OR complaint; Translations: [Persons encountering health services in other specified circumstances] 05-02-2020 Episodic Allergic reactions (15 sources) Hand eczema; Translations: [Dermatitis, unspecified] Onset: 04-10-2018 06-15-2022 Episodic Appendicitis and other appendiceal conditions (3 sources) Acute appendicitis with localized peritonitis, without perforation or gangrene; Translations: [Acute appendicitis] Onset: 09-05-2024 08-14-2024 Episodic Calculus of urinary tract (11 sources) Kidney stone; Translations: [Calculus of kidney] Onset: 12-05-2017 06-15-2022 Episodic Diabetes mellitus without complication (2 sources) Impaired fasting glucose; Translations: [Impaired fasting glycemia] Onset: 09-19-2024 09-19-2024 Episodic Essential hypertension (20 sources) Benign essential hypertension; Translations: [Essential (primary) hypertension] Onset: 07-31-2019 Chronic Comment on above: Better controlled at this time Genitourinary symptoms and ill-defined conditions (1 source) Pyuria; Translations: [Pyuria] 06-09-2023 Episodic Headache; including migraine (11 sources) Migraine; Translations: [Migraine, unspecified, not intractable, without status migrainosus] Onset: 11-21-2017 Chronic Immunizations and screening for infectious disease (6 sources) Viral screening status; Translations: [Encounter for screening for other viral diseases] Onset: 09-19-2024 Episodic Intestinal infection (5 sources) Traveler's diarrhea; Translations: [Infectious gastroenteritis and colitis, unspecified] 12-08-2021 Episodic Nausea and vomiting (6 sources) Increased nausea and vomiting; Translations: [Nausea with vomiting, unspecified] Onset: 09-19-2024 09-12-2022 Episodic Noninfectious gastroenteritis (6 sources) Gastroenteritis; Translations: [Noninfective gastroenteritis and colitis, unspecified] Onset: 09-19-2024 09-12-2022 Episodic Other gastrointestinal disorders (5 sources) Diarrhea; Translations: [Diarrhea, unspecified] Onset: 09-19-2024 09-20-2022 Episodic Other gastrointestinal disorders (1 source) Constipation, unspecified; Translations: [Constipation, unspecified] Onset: 09-05-2024 Episodic Other liver diseases (2 sources) Steatosis of liver; Translations: [Fatty (change of) liver, not elsewhere classified] Onset: 09-19-2024 09-19-2024 Chronic Other nervous system disorders (1 source) Other chronic pain; Translations: [Chronic pain of right knee] Onset: 09-19-2024 Chronic Other non-traumatic joint disorders (3 sources) Pain in right knee; Translations: [Pain in joint, lower leg] Onset: 09-19-2024 09-19-2024 Episodic Other nutritional; endocrine; and metabolic disorders (13 sources) Severe obesity; Translations: [Morbid (severe) obesity due to excess calories] Onset: 11-21-2017 Chronic Other nutritional; endocrine; and metabolic disorders (1 source) Body mass index (BMI) 38.0-38.9, adult; Translations: [Class 2 severe obesity with serious comorbidity and body mass index (BMI) of 38.0 to 38.9 in adult, unspecified obesity type (HCC)] Onset: 09-19-2024 Chronic Other nutritional; endocrine; and metabolic disorders (1 source) Morbid (severe) obesity due to excess calories; Translations: [Class 2 severe obesity with serious comorbidity and body mass index (BMI) of 38.0 to 38.9 in adult, unspecified obesity type (HCC)] Onset: 09-19-2024 Chronic Other nutritional; endocrine; and metabolic disorders (1 source) Abnormal weight gain; Translations: [Abnormal weight gain] Episodic Other screening for suspected conditions (not mental disorders or infectious disease) (4 sources) Patient encounter status; Translations: [Encounter for screening for diabetes mellitus] Onset: 10-22-2024 Episodic Other upper respiratory disease (10 sources) Seasonal allergic rhinitis; Translations: [Other seasonal allergic rhinitis] Onset: 11-21-2017 06-15-2022 Chronic Other upper respiratory disease (5 sources) Hypertrophy of nasal turbinates; Translations: [Hypertrophy of nasal turbinates] 01-16-2021 Episodic Other upper respiratory disease (6 sources) Deviated nasal septum; Translations: [Deviated nasal septum] Onset: 09-19-2024 01-16-2021 Episodic Other upper respiratory infections (5 sources) Acute upper respiratory infection; Translations: [Acute upper respiratory infection, unspecified] 03-31-2021 Episodic Residual codes; unclassified (6 sources) Obstructive sleep apnea syndrome; Translations: [Obstructive sleep apnea (adult) (pediatric)] Onset: 09-19-2024 05-02-2020 Chronic Residual codes; unclassified (6 sources) Hypersomnia; Translations: [Hypersomnia, unspecified] Onset: 09-19-2024 04-15-2020 Chronic Residual codes; unclassified (2 sources) Acquired absence of other specified parts of digestive tract; Translations: [Status post laparoscopic appendectomy] 08-22-2024 Episodic Unclassified (2 sources) R10.9,R10.11,R31.9,K9 2.1~ Onset: 12-05-2017 Unclassified (1 source) Class 2 severe obesity with serious comorbidity and body mass index (BMI) of 38.0 to 38.9 in adult, unspecified obesity type (HCC); Translations: [Class 2 severe obesity with serious comorbidity and body mass index (BMI) of 38.0 to 38.9 in adult, unspecified obesity type (HCC)] Onset: 09-19-2024 Unclassified (2 sources) Chronic pain of right knee 09-19-2024 Past or Other Problems Problem Classification Problem Date Documented Date Episodic/Chronic Cardiac dysrhythmias (20 sources) Palpitations; Translations: [Palpitations] Onset: 07-31-2019 06-15-2022 Episodic Hemorrhoids (10 sources) Internal hemorrhoids; Translations: [Other hemorrhoids] Onset: 11-06-2018 06-15-2022 Episodic Other and unspecified benign neoplasm (11 sources) Benign neoplasm of soft tissue; Translations: [Melanocytic nevi, unspecified] Onset: 06-16-2022 Episodic Other liver diseases (10 sources) Elevated levels of transaminase & lactic acid dehydrogenase; Translations: [Elevation of level of transaminase and lactic acid dehydrogenase (LDH)] Onset: 03-26-2021 06-15-2022 Episodic Results Test Name Value Interpretation Reference Range Facility Colonoscopy Reporton 025 Colonoscopy Report [facility] Medical Records Department [address] [place] [id number] Colonoscopy Report MR#: [id number] Acct: [id number] Name: BLACK CHAVEZ Rep #: [id number] : 1995 28 From: Codey Delvalle MD PCP: DAVID HOBBS Status:[facility] Patient Name: Black Chavez Procedure Date: 10/11/2024 10:56 AM Date of : 1995 Age: 28 Procedure: Colonoscopy Indications: Abnormal CT of the GI tract, Unusual pathology following appendectomy Providers: Codey Delvalle MD Referring MD: David Hobbs Medicines: Monitored Anesthesia Care Patient Profile: Last Colonoscopy: none. The patient's first colonoscopy is today. Complications: No immediate complications. Estimated blood loss: Minimal. Procedure: Pre-Anesthesia Assessment: - The heart rate, respiratory rate, oxygen saturations, blood pressure, adequacy of pulmonary ventilation, and response to care were monitored throughout the procedure. After I obtained informed consent, the scope was passed under direct vision. Throughout the procedure, the patient's blood pressure, pulse, and oxygen saturations were monitored continuously. The pediatric colonoscope was introduced through the anus and advanced to the ileocecal valve. The colonoscopy was performed without difficulty. The patient tolerated the procedure well. The quality of the bowel preparation was adequate to identify polyps. Scope In: 11:15:37 AM Scope Withdrawal Time 0 hours 17 minutes 3 seconds Scope Out: 11:38:46 AM Total Procedure Duration Time 0 hours 23 minutes 9 seconds Findings: The perianal and digital rectal examinations were normal. Normal mucosa was found in the cecum. Biopsies were taken with a cold forceps for histology. Estimated blood loss was minimal. A 5 mm, non-bleeding polyp was found in the distal sigmoid colon. The polyp was semi-sessile. Biopsies were taken with a cold forceps for histology. Estimated blood loss was minimal. The exam was otherwise without abnormality on direct and retroflexion views. Impression: - Normal mucosa in the cecum. Biopsied. - One 5 mm, non-bleeding polyp in the distal sigmoid colon. Biopsied. - The examination was otherwise normal on direct and retroflexion views. Recommendation: - Discharge patient to home (via wheelchair). - Resume previous diet today. - No aspirin, ibuprofen, naproxen, or other non-steroidal anti-inflammatory drugs for 2 days after biopsy. - Await pathology results. - Repeat colonoscopy date to be determined after pending pathology results are reviewed for surveillance based on pathology results. - Telephone my office for pathology results in 1 week. Procedure Code(s): --- Professional --- 77987, Colonoscopy, flexible; with biopsy, single or multiple Diagnosis Code(s): --- Professional --- D12.5, Benign neoplasm of sigmoid colon R93.3, Abnormal findings on diagnostic imaging of other parts of digestive tract CPT copyright 2021 [employer]. All rights reserved. The codes documented in this report are preliminary and upon process development engineer review may be revised to meet current compliance requirements. Codey Delvalle MD 10/11/2024 11:44:30 AM This report has been signed electronically. Number of Addenda: 0 Note Initiated On: 10/11/2024 10:56 AM 10/11/24 1144 Date Codey Baeza Signature: Date (if indicated) CC: CORRECTION OFFICERSol CORONADO; Dr. Codey Delvalle MD Date Dictated: 10/11/24 1056 Date Transcribed: Stunt Driver: FE [facility] MR/POSTOP.[facility] 10-11-2024 MR/POSTOP.[facility] Medical Records Department [address] [place] [id number] Anesthesia Postop Eval I 10/11/24 1150 MR#: [id number] Acct: [id number] Name: NOLABLACK LANDIS Rep #: [id number] : 1995 28 From: Blayne Alves PCP: DAVID HOBBS Status:REG SDC Y Race: C Location: [place] [address] Anesthesia: Postop Eval I Current Vital Signs Temperature: 97 F Pulse Rate: 80 Blood Pressure: 107/58 Respiratory Rate: 16 Pulse Ox: 97 Oxygen Delivery Method: Room Air Assessment Airway patent: Yes Spontaneous unlabored respirations: Yes Mental status: Awake nausea: No Vomiting: No Anesthesia Complication: No Fluid Hydration Crystalloid volume administer (ml): 80 Total IV fluid infused: 80 Progress Note Anesthesia document: Postop Eval 1 completed: Yes 10/11/24 1151 Date Blayne Baeza Signature: Date CC: Signed Normal [facility] MR/[id number] 10-11-2024 MR/POSTOPAN2 [facility] Medical Records Department [address] [place] [address] Anesthesia Postop Eval II 10/11/24 1236 MR#: [id number] Acct: [id number] Name: BLACK CHAVEZ Rep #: [id number] : 1995 28 From: Jose Stephenson MD PCP: CAMRYN HOBBSC [facility] Y Race: C Location: [place] Anesthesia Postop Eval I Sum Postop Eval Completion status Anesthesia document: Postop Eval 1 completed: Yes Anesthesia Postop Eval I Summary Anesthesia Postop Eval I Summary: Anesthesia Postop Eval I: Assessment Summary Airway patent Yes 10/11/24 11:51 [email or web address] Spontaneous unlabored Yes 10/11/24 11:51 [email or web address] respirations Mental status Awake 10/11/24 11:51 [email or web address] nausea No 10/11/24 11:51 [email or web address] Vomiting No 10/11/24 11:51 [email or web address] Anesthesia Postop Eval I: Fluid Summary Crystalloid volume administer 80 10/11/24 11:51 [email or web address] (ml) Colloids volume administered ( ml) Blood Product volume administered (ml) Total IV fluid infused 80 10/11/24 11:51 [email or web address] Anesthesia Postop Eval I: Summary Notes Anesthesia Complication No 10/11/24 11:51 [email or web address] Anesthesia Complication Comment: Post-operative progress note Anesthesia: Postop Eval II Evaluation Mental status: Awake Pain Level: 0 nausea: No Vomiting: No Complications Anesthesia Complication: No 10/11/24 1236 Date Jose Stephenson MD Cosigner Signature: Date CC: Signed Normal [facility] Surgery Specimen Level Edwin 10-11-2024 Surgery Specimen Level IV ---- Patient Age/Sex Location Account Attending Physician ---- BLACK CHAVEZ 28/M EN [id number] Dr. Codey Delvalle MD ---- Specimen: [id number] Received: 10/11/24 Status: GIANFRANCO Hameed Num: [id number] Spec Type: EGD BIOPSY Subm Dr: Dr. Codey Delvalle MD HEADER OPERATION: Colonoscopy, biopsy PRE-OP DIAGNOSIS: Encounter for screening for malignant neoplasm of colon TISSUE SUBMITTED: A- Cecum biopsy, B- Distal sigmoid colon polyp biopsy ---- MICROSCOPIC DIAGNOSIS A: CECUM, BIOPSY: * No specific pathologic change. B: DISTAL SIGMOID COLON, POLYP, BIOPSY: * Hyperplastic polyp. MICROSCOPIC DESCRIPTION Slides are reviewed. GROSS DESCRIPTION A. Received in fixative is one container labeled with the patient's name and designated Cecum biopsy. The specimen consists of two irregular fragments of light myers soft tissue that in aggregate measure 0.8 x 0.4 x 0.1 cm. The specimen is totally submitted in one cassette. B. Received in fixative is one container labeled with the patient's name and designated Distal sigmoid colon polyp biopsy. The specimen consists of one irregular fragment of light myers soft tissue that measures 0.4 x 0.3 x 0.2 cm. The specimen is totally submitted in one cassette. 10/11/2024 [facility]:[id number] ---- Patient Age/Sex Location Account Attending Physician ---- BLACK CHAVEZ 28/M EN [id number] Dr. Codey Delvalle MD ---- Signed (signature on file) Dr. Vale Rodriguez MD 10/18/24 0936 ---- Normal [facility] Comment on above: Performed By: #### P SUIV ####[facility] [id number] [place], [place], [address] MR/PATCRISTOBALon 10-08-2024 /PAT.[facility] Medical Records Department [address] [place] [address] PAT - Anesthesia 10/08/24 1523 MR#: [id number] Acct: [id number] Name: BLACK CHAVEZ Rep #: [id number] : 1995 28 From: Mohan Anaya MD PCP: [place] HOBBS [place] [facility] [place] C [place] [facility] [place]-Assessment Diagnosis/Proposed Procedure Planned Operative Procedure(s): COLONOSCOPY Anesthesia History Anesthesia History - tongsman: Anesthesia History - tongsman Hx Hospitalization No: 08/2024 APPY, NO 10/08/24 14:27 OVERNIGHT STAY THOUGH Any Problems With Anesthesia No 10/08/24 14:27 Cholinesterase deficiency No 10/08/24 14:27 You/Your Family Experience No 10/08/24 14:27 fever (hyperthermia) with Relationship Recent Exposure to Contagious No 01/16/21 06:31 Disease Does patient have nerve No 10/08/24 14:27 stimulator Patient instructed to have device shut off --Does patient have Pacemaker or ICD? When Was Last Pacemaker Check QUESTION #4 FULL TEXT: You/Your Family Experience fever (hyperthermia) with Anesthesia Last Oral Intake Last Oral intake: Last Oral Intake NPO since Meds taken in AM with sips of water? Meds patient instructed to take am of surgery PONV PONV - tongsman: PONV - tongsman Female No 10/08/24 14:27 HX of Motion Sickness Yes 10/08/24 14:27 HX of N/V After Surgery No 10/08/24 14:27 Non-Smoker Yes 10/08/24 14:27 Duration of Surgery greater No 10/08/24 14:27 than 60 minutes Number of Risk Factors 2 10/08/24 14:27 PONV Score Moderate Risk 10/08/24 14:27 Height Weight Height Weight: Anesthesia: Height Weight Height 5 ft 11 in 08/14/24 06:40 Respiratory Assessment Respiratory Assessment - tongsman: Respiratory Tract Infection Hx - tongsman Hx Respiratory Tract Infection No 10/08/24 14:27 STOP Sleep Apnea STOP Sleep Apnea - tongsman: STOP Sleep Apnea - tongsman Hx Hypertension Yes 10/08/24 14:27 Hx Sleep Apnea Yes: BORDERLINE 10/08/24 14:27 CPAP No 10/08/24 14:27 BIPAP No 10/08/24 14:27 Do you snore loudly (louder than talking or can be heard Do you often feel tired/ fatigued/ sleepy during daytime? Has anyone observed you stop breathing during sleep? STOP Results Positive 10/08/24 14:27 QUESTION #5 FULL TEXT : Do you snore loudly (louder than talking or can be heard through closed doors)? 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 Specify any problems Hx of Preganancy in last 3 N/A 10/08/24 14:27 Months Nurse Filling Out Transfusion [employer] 10/08/24 14:27 Questions: Date: 10/08/24 10/08/24 14:27 Time: 14:33 10/08/24 14:27 Patient unable to answer at this time (ie. 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 History - tongsman: /Reproductive Hx- tongsman Hx Now Gestational Age (in weeks): EDC: Hx Hx Para Hx Section [facility] Medical History History of renal disease History of echocardiogram Wears contact lenses Alcohol use History of kidney stones Non-smoker Sleep apnea Cardiology follow-up encounter Hypersomnolence Essential hypertension Palpitations Seasonal allergies Migraines Home Medications ???Medication ???Instructions ???Recorded ???Last Taken ???Type rizatriptan 10 mg tablet (Maxalt) 10 mg PO ONCE PRN migraines 08/14 Unknown History acetaminophen 500 mg tablet 500 mg PO Q4H PRN PRN Pain Score 0 01/16/21 Unknown Rx 1-5/10 #0 tabs ibuprofen 200 mg tablet 400 mg (2 x 200 mg) PO Q6H PRN PRN 01/16/21 Unknown Rx Pain Score 4-10/10 #0 tabs carvedilol 25 mg tablet 25 mg PO BID #60 tabs 12/20/23 Rx amlodipine 10 mg tablet 10 mg PO DAILY #90 tabs 02/10/24 0 08/14/24 Rx lisinopril 10 mg tablet 10 mg PO DAILY #90 tabs 06/22/24 0 08/14/24 Rx Allergy/AdvReac Type Severity (more content not included)... [facility] ) BLACK CHAVEZ ([id number]) 1995 M Date Time Provider Department 09/19/24 8:00 AM LAURIE CORONADO During your visit today, we recorded the following information about you: Temperature Pulse Respiration Blood pressure 97.7 degrees 70/minute 18/minute 124/84 Weight Height 124.3 kg 1.79 m Laurie Coronado APRN.METAL BURNISHER 09/19/2024 9:24 AM Signed Black Chavez is a 28 year old male who presents with Knee Pain (Black is here today to discuss his knee pain. Has been slowly getting worse over the last few years and has gotten to where he would rather not keep just bearing it. Mostly around the patella of the right knee.//Rosales Loomis MA/September 19, 2024 8:06 AM//) Black presents today with c/o chronic R knee pain. States pain started years ago, but has been getting worse. Pain is worst with climbing stairs. Feels mostly on the lateral side of the patella. No prior imaging. Denies any swelling. Will be having colonoscopy next month to f/u on eileen-appendicitis found last month. S/p appendectomy. CT done in ER also noted to show BL renal calculi (approx. 2-3 mm) and hepatic steatosis. The history is provided by the patient. Right knee injury: No Right knee condition: Chronic Right knee severity: Moderate Right knee progression: Worsening Patient reports that right knee feels unstable. Patient reports feeling right knee popping. Right knee aggravating factors: Change in inclines. Right knee alleviating factors: None. No results found for: CBCAU, CMPNOTE, LIPIDNOTE, HBA1C, TSH, UALBR, VITD PAST MEDICAL HISTORY Diagnosis Date COVID Essential hypertension Food poisoning 09/13/2022 Kidney stone Migraine headache Periappendicitis Seasonal allergies ACTIVE PROBLEM LIST Benign Essential Hypertension Class 2 severe obesity with serious comorbidity and body mass index (BMI) of 37.0 to 37.9 in adult Eczema of Hand Elevation of Level of Transaminase and Lactic Acid Dehydrogenase (Ldh) Well Adult Exam Hemorrhoids, Internal Migraine Headaches Palpitations Renal Calculus Seasonal Allergic Rhinitis Multiple Nevi Diarrhea Obstructive Sleep Apnea Syndrome Inflammation of Stomach and Intestine Increased Nausea and Vomiting Hypersomnia Deviated Nasal Septum Current Outpatient Medications Medication Sig Dispense Refill carvedilol (COREG) 25 mg tablet Take 25 mg by mouth two times a day with meals. lisinopril (ZESTRIL) 10 mg tablet TAKE 1 TABLET BY MOUTH ONCE DAILY 90 tablet 0 rizatriptan (MAXALT FELLER SEAM OPERATOR) 10 mg disintegrating tablet TAKE 1 TABLET BY MOUTH ONCE DAILY NEEDED FOR MIGRAINE 9 tablet 0 amLODIPine (NORVASC) 10 mg tablet Take 1 tablet by mouth once daily. ketoconazole (NIZORAL) 2 % cream (Patient not taking: Reported on 09/19/2024) No current facility-administered medications for this visit. Social History Tobacco Use Smoking status: Never Smokeless tobacco: Never Vaping Use Vaping status: Never Used Substance Use Topics Alcohol use: Never Drug use: Never FAMILY HISTORY Problem Relation Age of Onset Alcohol/Drug Father Hypertension Father Review of Systems All other systems reviewed and are negative. BP 124/84 Pulse 70 Temp (Src) 97.7 (Temporal) Resp 18 Ht 5' 10.472 (1.79m) Wt 274 lb (124.3kg) SpO2 96% BMI 38.79 kg/(m2). Physical Exam Vitals and nursing note reviewed. Constitutional: Appearance: Normal appearance. He is obese. Comments: Weight up 9# from last OV. HENT: Head: Normocephalic and atraumatic. Ears: Comments: Grossly normal hearing Eyes: Pupils: Pupils are equal, round, and reactive to light. Cardiovascular: Rate and Rhythm: Normal rate and regular rhythm. Pulses: Normal pulses. Heart sounds: Normal heart sounds. No murmur heard. Pulmonary: Effort: Pulmonary effort is normal. Breath sounds: Normal breath sounds. Musculoskeletal: General: No swelling. Cervical back: Neck supple. Right knee: Normal. No swelling, deformity, effusion, erythema or crepitus. Normal range of motion. No tenderness. Instability Tests: Anterior drawer test negative. Posterior drawer test negative. Skin: General: Skin is warm and dry. Capillary Refill: Capillary refill takes less than 2 seconds. Findings: No lesion or rash. Neurological: General: No focal deficit present. Mental Status: He is alert and oriented to person, place, and time. Psychiatric: Mood and Affect: Mood normal. Behavior: Behavior normal. Medications were reviewed and verified. 06/09/2023 09/19/2024 INTAKE PAIN ASSESSMENT Are you having pain associated with your visit today? Yes, Provider notified Yes, Provider notified Pain Scales Verbal (Numeric Rating or Visual Analog Scale) Verbal (Numeric Rating or Visual Analog Scale) Pain Level 2 1 Pain Location Abdomen Knee-Right Description (more content not included)... Normal [facility] Surgery Visit Reporton 08-22 Surgery Visit Report [facility] [address] [place], [place] [address] OFFICE VISIT Date of Service: 08/22/24 MR#: [id number] Acct: [id number] Name: BLACK CHAVEZ Rep #: [id number] : 1995 Provider: KLEBER jerry Age/Sex: 28/M [place] [facility] [place] Status: Signed Intake Vital Signs 08/14/24 06:40 08/22/24 13:20 Height 5 ft 11 in BP 151/74 H Blood Pressure Location Rt brachial Position Sitting Respiration 17 Pulse 97 Pulse Source Monitor Pulse Oximetry (%) 97 Oxygen Delivery Method room air Intake Visit Reasons: APPY - Chief Complaint: appy 08/14, colonoscopy Is patient in pain?: No Allergies hydromorphone (From Dilaudid) Allergy (Severe, Verified 08/22/24 13:21) Unknown pollen extracts Allergy (Severe, Verified 08/22/24 13:21) Unknown Medications ???Medication ???Instructions ???Recorded ???Confirmed ???Type rizatriptan 10 mg tablet (Maxalt) 10 mg PO ONCE PRN migraines 08/14/19 08/22/24 History acetaminophen 500 mg tablet 500 mg PO Q4H PRN PRN Pain Score 01/16/21 08/22/24 Rx 1-5/10 #0 tabs ibuprofen 200 mg tablet 400 mg (2 x 200 mg) PO Q6H PRN PRN 01/16/21 08/22/24 Rx Pain Score 4-10/10 #0 tabs carvedilol 25 mg tablet 25 mg PO BID #60 tabs 12/20/23 08/22/24 Rx amlodipine 10 mg tablet 10 mg PO DAILY #90 tabs 02/10/24 08/22/24 Rx lisinopril 10 mg tablet 10 mg PO DAILY #90 tabs 06/22/24 08/22/24 Rx PFSH Medical History (Updated 08/22/24 @ 13:20 by Niru Eisenberg) Wears contact lenses Alcohol use History of kidney stones Non-smoker Sleep apnea Cardiology follow-up encounter Hypersomnolence Essential hypertension Palpitations Seasonal allergies Migraines Surgical History (Updated 08/22/24 @ 12:53 by Niru Eisenberg) Status post laparoscopic appendectomy Hx of nasal septoplasty History of tonsillectomy ( 2016) Family History Sister Hypertension Brother Hypertension Mother Hypertension Heart disease Father Hypertension Social History Smoking Status: Never smoker alcohol intake: current alcohol intake frequency: a few times a month substance use type: does not use caffeine: Yes Type: coffee Number of servings: 1 HPI HPI Surgical H P: Yes HPI: Patient is a 28 y/o M I am following s/p laparoscopic appendectomy by Dr. Delvalle on 08/14/24. Patient tolerated the procedure well. Patient denies any right lower quadrant pain. He notes he had pain in the right lower quadrant intermittently for 3 years. He was always told this was kidney stone related. He notes since the procedure, he feels significantly improved. He denies any nausea, vomiting, fever. He notes appetite and bowel habits have returned to normal. Pathology demonstrated acute periappendicitis. No atypical cells or cancer cells. However, this pathology is more concerning for an inflammatory process suspicious for inflammatory bowel. He denies any bowel habits changes recently. He does note multiple bowel movements daily with lots of flatus production. He denies any rectal bleeding or melena. He notes his brother was worked up for bowel disease, which all returned as negative. he notes his sister was recently diagnosed with celiac disease. He states when he consumes beer, bread or other gluten-containing products, he notes an increase in bowel function to more loose stools. He denies any family history of colon cancer or inflammatory bowel disease. He denies any previous colonoscopy. He denies being on any blood thinners or weight loss medication. ROS General General: No weight change, appetite, fatigue, colon cancer, breast cancer or weakness HEENT HEENT: No difficulty swallowing, eye injury, eye surgery, swollen glands or hoarseness Endo Endocrine: No thyroid disease, diabetes mellitus, thyroid cancer, Hair loss, heat intolerance or cold intolerance Skin Skin: No rash or changing moles Musc Musculoskeletal: No back problems, arthritis, rheumatoid arthritis, gout or joint pain Cardio Cardiovascular: Yes high blood pressure; No murmur, pacemaker, heart disease, atrial fibrillation, heart attack, heart stent, palpitations, shortness of breat with exertion or chest pain Psych Psychiatric: No depression, anxiety or hearing voices Resp Respiratory: No shortness of breath, No sleep apnea, No cough, No COPD, No asthma, No emphysema and No wheezing Gastro Gastrointestinal: No abdominal pain, No nausea or vomiting, Yes diarrhea, No constipation, No blood in stool, No acid reflux, No hemorrhoids, No ulcers, No gallbladder problem and No black,tarry stools [place] Hematologic: No blood thinners, No blood disorders, No bleeding, No anemia and No blood clots Neur (more content not included)... Normal [facility] Abdomen/Pelvis W IV Cont ONL Yon 08-14-2024 Abdomen/Pelvis W IV Cont ONLY [facility] Imaging Services [address] [place] [address] [id number] Abdomen/Pelvis W IV Cont ONLY MR#: [id number] Acct: [id number] Name: BLACK CHAVEZ Rep #: [id number] : 1995 M 28 From: Shruti Pat MD PCP: DAVID HOBBS Status: PRE ER Study: Abdomen/Pelvis W IV Cont ONLY Date of Exam: Exam# [id number] Ordering Dr: Tay Pinto MD [id number] STUDY: CT ABDOMEN AND PELVIS WITH CONTRAST - URINARY TRACT REASON FOR EXAM: Male, 28 years old. r-sided abd pain after taking laxative RADIATION DOSAGE (If Supplied By Facility): CTDIvol = ( 17.73 ) mGy, DLP = ( 1336.03 ) mGycm TECHNIQUE: IV 100mL Isovue-370 was administered. Transaxial images were obtained from the dome of the diaphragm to the symphysis pubis subsequent to intravenous contrast administration. Multiplanar coronal and sagittal images were reformatted. The protocol utilizes one or more of the following dose reduction techniques: automated exposure control, adjustment of mA and/or kV according to patient size,and/or use of iterative reconstruction technique. COMPARISON: Renal ultrasound dated August 10, 2023 FINDINGS: The visualized lung bases are unremarkable. The visualized portions of the heart are within normal limits. There is decreased attenuation of the liver consistent with steatosis. Normal gallbladder and extrahepatic biliary system. Normal spleen. Normal pancreas. Normal bilateral adrenal glands. Normal visualized stomach. Normal small intestine. Normal colon. The appendix is dilated measuring up to 10 mm associated with circumferential wall thickening and periappendiceal stranding consistent with appendicitis. There is an associated enlarged lymph node within the mesentery right of midline measuring up to 1 cm Normal abdominal aorta. No retroperitoneal adenopathy. There is a 2.9 mm nonobstructing right renal calculus. There is a too small to characterize low-attenuation focus within the right kidney which may reflect a cyst. Within the left kidney there is a 2.5 mm nonobstructing calculus. There are two round low-attenuation foci within the left kidney within appearance suggestive of cysts. Normal urinary bladder. There is a small umbilical hernia containing fat. Normal osseous structures. CT/Abdomen/Pelvis W IV Cont ONLY IMPRESSION: Acute appendicitis. Fatty infiltration of the liver. Bilateral nonobstructing renal calculi measuring up to 2.9 mm on the right. Electronically Signed: Shruti Pat MD at 8:11 EST , CC: DAVID CORONADO; Dr. Tay Pinto MD Stunt Driver: Signed Normal [facility] Absolute neutrophil countOrd ered By: Tay Pinto on 08-14-2024 Neutrophils (Bld) [#/Vol] 4.0 10*3/uL 2.0-7.7 [facility] Bilirubin Test strip Ql (U)O rdered By: Tay Pinto on 08-14-2024 Bilirubin Ql (U) Negative Negative [facility] Blood urea nitrogen (BUN)/cr eatinine ratioOrdered By: Tay Pinto on 08-14-2024 Urea nitrogen/Creatinine [Mass ratio] 18.0 mg/mg 10-20 [facility] CBC W/Diff, Automatedon 08-01 Absolute Lymph 1.96 X10 3/uL Normal 0.83-4.51 [facility] Comment on above: Performed By: #### L 501.2450, L100.0100, L500.4050 ####[facility] [address] [place], [address] Absolute Neut 4.0 X10 3/uL Normal 2.0-7.7 [facility] Comment on above: Performed By: #### L 501.2450, L100.0100, L500.4050 ####[facility] [address] [place], [address] IG% 0.100 Normal 0.0-0.9 [facility] Comment on above: Result Comment: IG% - Immature Granulocytes (promyelocytes, myelocytes and metamyelocytes) > 1% indicates that a LEFT SHIFT is Present. Performed By: #### L 501.2450, L100.0100, L500.4050 ####[facility] [address] [place], [address] Nucleated RBC (Bld) [#/Vol] 0 10*3/uL Normal 0-5 [facility] Comment on above: Performed By: #### L 501.2450, L100.0100, L500.4050 ####[facility] [address] [place], [address] RDW SD 38.5 fl Normal 35.1-43.9 [facility] Comment on above: Performed By: #### L 501.2450, L100.0100, L500.4050 ####[facility] [address] [place], [address] CBC W/Diff, AutomatedOrdered By: Tay Pinto on 08-14-2024 Basophils/100 WBC (Bld) 0.7 % Normal 0-1 [facility] Comment on above: Performed By: #### L 501.2450, L100.0100, L500.4050 ####[facility] [address] [place], [address] Eosinophils/100 WBC (Bld) 1.3 % Normal 0-5 [facility] Comment on above: Performed By: #### L 501.2450, L100.0100, L500.4050 ####[facility] [address] [place], [address] Erythrocyte distribution width (RBC) [Ratio] 12.6 % Normal 11.6-14.6 [facility] Comment on above: Performed By: #### L 501.2450, L100.0100, L500.4050 ####[facility] [address] [place], [address] Hematocrit (Bld) [Volume fraction] 42.2 % Normal 40-54 [facility] Comment on above: Performed By: #### L 501.2450, L100.0100, L500.4050 ####[facility] [address] [place], [address] Hemoglobin (Bld) [Mass/Vol] 14.1 g/dL Normal 13.0-16.5 [facility] Comment on above: Performed By: #### L 501.2450, L100.0100, L500.4050 ####[facility] [address] [place], [address] Lymphocytes/100 WBC (Bld) 29.2 % Normal 19-41 [facility] Comment on above: Performed By: #### L 501.2450, L100.0100, L500.4050 ####[facility] [address] [place], [address] MCH (RBC) [Entitic mass] 28.3 pg Normal 27.0-32.0 [facility] Comment on above: Performed By: #### L 501.2450, L100.0100, L500.4050 ####[facility] [address] [place], [address] MCHC (RBC) [Mass/Vol] 33.4 g/dL Normal 32-36 [facility] Comment on above: Performed By: #### L 501.2450, L100.0100, L500.4050 ####[facility] [address] [place], [address] MCV (RBC) [Entitic vol] 84.6 fL Normal 80-94 [facility] Comment on above: Performed By: #### L 501.2450, L100.0100, L500.4050 ####[facility] [address] [place], [address] Monocytes/100 WBC (Bld) 9.7 % Normal 0-10 [facility] Comment on above: Performed By: #### L 501.2450, L100.0100, L500.4050 ####[facility] [address] [place], [address] Neutrophils/100 WBC (Bld) 59.0 % Normal 47-70 [facility] Comment on above: Performed By: #### L 501.2450, L100.0100, L500.4050 ####[facility] [address] [place], [address] Platelet mean volume (Bld) [Entitic vol] 8.8 fL Normal 6.2-12.0 [facility] Comment on above: Performed By: #### L 501.2450, L100.0100, L500.4050 ####[facility] [address] [place], [address] Platelets (Bld) [#/Vol] 362 10*3/uL Normal 150-450 [facility] Comment on above: Performed By: #### L 501.2450, L100.0100, L500.4050 ####[facility] [address] [place], [address] RBC (Bld) [#/Vol] 4.99 10*6/uL Normal 4.6-6.2 [facility] Comment on above: Performed By: #### L 501.2450, L100.0100, L500.4050 ####[facility] [address] [place], [address] WBC (Bld) [#/Vol] 6.7 10*3/uL Normal 4.4-11.0 [facility] Comment on above: Performed By: #### L 501.2450, L100.0100, L500.4050 ####[facility] [address] [place], [address] Comprehensive Metabolic Prof ilOrdered By: Tay Pinto on 08-14-2024 Albumin [Mass/Vol] 4.0 g/dL Normal 3.2-5.0 [facility] Comment on above: Performed By: #### L 501.2450, L100.0100, L500.4050 ####[facility] [address] [place], [address] Albumin/Globulin [Mass ratio] 1.1 {ratio} Normal 0.9-2.4 [facility] Comment on above: Performed By: #### L 501.2450, L100.0100, L500.4050 ####[facility] [address] [place], [address] ALT [Catalytic activity/Vol] 65 U/L High 16-61 [facility] Comment on above: Performed By: #### L 501.2450, L100.0100, L500.4050 ####[facility] [address] [place], [address] AST [Catalytic activity/Vol] 21 U/L Normal 15-37 [facility] Comment on above: Performed By: #### L 501.2450, L100.0100, L500.4050 ####[facility] [address] [place], [address] Bilirubin [Mass/Vol] 0.50 mg/dL Normal 0.20-1.00 [facility] Comment on above: Result Comment: For patients on eltrombopag therapy, use of Dimension [place] TBIL is not recommended. Performed By: #### L 501.2450, L100.0100, L500.4050 ####[facility] [address] [place], [address] For patients on eltr ombopag therapy, use of Dimension [place] TBIL is not recommended. Chloride [Moles/Vol] 107 mmol/L Normal 98-107 [facility] Comment on above: Performed By: #### L 501.2450, L100.0100, L500.4050 ####[facility] [address] [place], [address] CO2 [Moles/Vol] 26.0 mmol/L Normal 21.0-32.0 [facility] Comment on above: Performed By: #### L 501.2450, L100.0100, L500.4050 ####[facility] [address] [place], [address] Creatinine [Mass/Vol] 0.94 mg/dL Normal 0.70-1.30 [facility] Comment on above: Result Comment: The validity of the calculated GFR GFRAA in patients over 70 years has not been determined. Clinical correlation is essential. Performed By: #### L 501.2450, L100.0100, L500.4050 ####[facility] [address] [place], [address] The validity of the calculated GFR & GFRAA in patients over 70 years has not been determined. Clinical correlation is essential. Globulin (S) [Mass/Vol] 3.7 g/dL Normal 2.2-4.2 [facility] Comment on above: Performed By: #### L 501.2450, L100.0100, L500.4050 ####[facility] [address] [place], [address] Glucose [Mass/Vol] 122 mg/dL High 74-106 [facility] Comment on above: Result Comment: Fast ing Glucose result from 100 to 125 mg/dL suggests IMPAIRED HOMEOSTASIS per A.D.A. criteria. Performed By: #### L 501.2450, L100.0100, L500.4050 ####[facility] [address] [place], [address] Fasting Glucose resu lt from 100 to 125 mg/dL suggests IMPAIRED HOMEOSTASIS per A.D.A. criteria. Potassium [Moles/Vol] 3.8 mmol/L Normal 3.5-5.1 [facility] Comment on above: Performed By: #### L 501.2450, L100.0100, L500.4050 ####[facility] [address] [place], [address] Sodium [Moles/Vol] 139 mmol/L Normal 136-145 [facility] Comment on above: Performed By: #### L 501.2450, L100.0100, L500.4050 ####[facility] [address] [place], [address] Urea nitrogen [Mass/Vol] 17 mg/dL Normal 7-18 [facility] Comment on above: Performed By: #### L 501.2450, L100.0100, L500.4050 ####[facility] [address] [place], [address] Comprehensive Metabolic Prof ángel 08-14-2024 ALK P 65 U/L Normal 45-117 [facility] Comment on above: Performed By: #### L 501.2450, L100.0100, L500.4050 ####[facility] [address] [place], [address] BUN/CRE 18.0 RATIO Normal 10-20 [facility] Comment on above: Performed By: #### L 501.2450, L100.0100, L500.4050 ####[facility] [address] [place], [address] CA,Total 9.7 mg/dL Normal 8.5-10.1 [facility] Comment on above: Performed By: #### L 501.2450, L100.0100, L500.4050 ####[facility] [address] [place], [address] ECRCL 155.19 ml/min Normal [facility] Comment on above: Performed By: #### L 501.2450, L100.0100, L500.4050 ####[facility] [facility] [id number] [place], [address] EST GFR - AA 122 mL/min Normal >60 [facility] Comment on above: Result Comment: Afri can Kosovan GFR Calc Performed By: #### L 501.2450, L100.0100, L500.4050 ####[facility] [address] [place], [address] GAP 6 Normal 5-15 [facility] Comment on above: Performed By: #### L 501.2450, L100.0100, L500.4050 ####[facility] [address] [place], [address] GFR/1.73 sq M.predicted among non-blacks MDRD (S/P/Bld) [Vol rate/Area] 101 mL/min/{1.73_m2} Normal >60 [facility] Comment on above: Result Comment: Non- GFR Calc Performed By: #### L 501.2450, L100.0100, L500.4050 ####[facility] [address] [place], [address] T PROT 7.7 g/dL Normal 6.4-8.2 [facility] Comment on above: Performed By: #### L 501.2450, L100.0100, L500.4050 ####[facility] [address] [place], [address] Discharge Instructionon 08-01 Discharge Instruction [facility] Medical Records Department [address] [place] [address] Instructions for Home/Discharge Instructions 08/14/24 1142 MR#: [id number] Acct: [id number] Name: BLACK CHAVEZ Rep #: [id number] : 1995 28 From: Codey Delvalle MD PCP: DAVID HOBBS [place] [facility] [place] Instructions Diet Discharge Diet: No restrictions Activity Discharge Activity: May Not Drive (No driving while using narcotic pain medication) and May Shower (Postoperative day 1) May shower in (days): 2 Ice area for (Minutes): 20 Lifting Restrictions: No lifting greater than 15 pounds for 2 weeks after surgery Dressing / Incision Call your doctor if your incision/area has: Continuous Slow Oozing, Increased Pain/ Swelling, Increased Redness, Foul Smelling Discharge and Swelling at the incision site Call your doctor if you observe: Fever of 101 or Higher Remove Dressing in: 2 days (Please leave Steri-Strips intact until they fall off spontaneously or are taken off at your follow-up visit) Cleanse incision/area with: Soap Water Follow Up Care Please Follow Up With: Codey Delvalle MD When: 7-10days postop Test Results: Test results from this visit will be discussed in further detail at your follow-up appointment, if applicable. Discharge Plan Admission Primary Reason for Your Visit: Appendectomy Attending Provider: Codey Delvalle Primary Care Provider: LAURIE CORONADO Print Language: Jamaican Discharge Orders/Prescriptions Prescriptions: New oxycodone 5 mg tablet 5 mg PO Q6H PRN (Reason: pain) 3 Days Qty: 10 0RF Continued rizatriptan [Maxalt] 10 mg tablet 10 mg PO ONCE PRN (Reason: migraines) Rx Instructions: may repeat once in >=2 hours carvedilol 25 mg tablet 25 mg PO BID Qty: 60 11RF Rx Instructions: must administer with a meal/food acetaminophen 500 mg Tablet 500 mg PO Q4H PRN PRN (Reason: Pain Score 1-5/10) Qty: 0 0RF ibuprofen 200 mg Tablet 400 mg PO Q6H PRN PRN (Reason: Pain Score 4-10/10) Qty: 0 0RF amlodipine 10 mg tablet 10 mg PO DAILY Qty: 90 3RF lisinopril 10 mg tablet 10 mg PO DAILY Qty: 90 3RF Referrals / Follow Up: LAURIE CORONADO NP-C [Primary Care Provider] - Disposition Disposition (needs filled in before D/C Order can be placed): Home, Self Care 08/14/24 1402 Codey Delvalle MD CC: CORRECTION OFFICER-C LAURIE CORONADO Signed Normal [facility] Emergency Department Summary on 08-14-2024 Emergency Department Summary [facility] Medical Records Department [address] [place] [address] Emergency Department Summary 08/14/24 MR#: [id number] Acct: [id number] Name: BLACK CHAVEZ Rep #: [id number] : 1995 28 From: Tay Pinto MD PCP: DAVID HOBBS [facility] [place] [facility] [place] HPI - GI History of Present Illness Chief Complaint: Constipation Informant: patient Abdominal Pain/Flank Pain Onset: Days Context: Gradual Onset Timing: Intermittent Quality: Cramping Location: RUQ and RLQ Current Severity: Mild Maximum Severity: Mild Worsened by: Nothing Relieved by: Nothing Nausea/Vomiting/Emesis GI Symptom: Negative for Nausea or Vomiting Diarrhea/Melena/Hemato chezia GI Symptom: Positive for - (Constipation. With the laxatives he has had small loose stools. No significant bowel movement for 4 to 5 days.); Negative for Diarrhea, Melena or Hematochezia Associated Symptoms Associated Symptoms: Negative for Dysuria, Frequency, Hematuria or Urgency Narrative Narrative: 28-year-old male history of kidney stones and hypertension. Says that he has not had any significant bowel movement for 4 to 5 days since probably last or Tuesday. He has been taking laxatives with really no significant relief. Has had small loose stools. But no significant bowel movement. Denies any fever. Denies any vomiting. Denies any dysuria. Has never had any abdominal surgeries. Denies any abdominal trauma. He said now he is having right sided abdominal pain both upper and lower quadrant. Not associated with food. Prior similar symptoms: No Recent Illness/Hospitalizatio n: No PFSH PFSH Medical History Wears contact lenses Alcohol use History of kidney stones Non-smoker Sleep apnea Cardiology follow-up encounter Hypersomnolence Essential hypertension Palpitations Seasonal allergies Migraines Home Medications ???Medication ???Instructions ???Recorded ???Last Taken ???Type rizatriptan 10 mg tablet (Maxalt) 10 mg PO ONCE PRN migraines 08/14/19 Unknown History acetaminophen 500 mg tablet 500 mg PO Q4H PRN PRN Pain Score 01/16/21 Unknown Rx 1-5/10 #0 tabs ibuprofen 200 mg tablet 400 mg (2 x 200 mg) PO Q6H PRN PRN 01/16/21 Unknown Rx Pain Score 4-10/10 #0 tabs carvedilol 25 mg tablet 25 mg PO BID #60 tabs 12/20/23 Unknown Rx amlodipine 10 mg tablet 10 mg PO DAILY #90 tabs 02/10/24 Unknown Rx lisinopril 10 mg tablet 10 mg PO DAILY #90 tabs 06/22/24 Unknown Rx Allergy/AdvReac Type Severity Reaction Status Date / Time hydromorphone (From Dilaudid) Allergy Severe Unknown Verified 08/14/24 06:39 pollen extracts Allergy Severe Unknown Verified 08/14/24 06:39 Family History Sister Hypertension Brother Hypertension Mother Hypertension Heart disease Father Hypertension Surgical History Hx of nasal septoplasty History of tonsillectomy ( 2016) Social History Smoking Status: Never smoker alcohol intake: current alcohol intake frequency: a few times a month substance use type: does not use caffeine: Yes Type: coffee Number of servings: 1 ROS ROS ED ROS Narrative Constipation. Right-sided abdominal pain. Denies fever. Denies dysuria. Constitutional Constitutional ED: Denies chills or fever(s) ENT ENT ED: Denies ear pain Cardiovascular Cardiovascular: Denies chest pain Respiratory/Chest Respiratory/Chest: Denies cough or dyspnea Gastrointestinal Gastrointestinal: Reports abdominal pain and constipation; Denies diarrhea, melena, nausea or vomiting Genitourinary Genitourinary ED: Denies dysuria or hematuria Musculoskeletal Musculoskeletal: Denies arthralgias Integumentary Denies abscess Neurologic Neurologic: Denies headache(s) Psychiatric Psychiatric: Denies anxiety or depression Endocrine Endocrinology: Denies polydipsia or polyphagia Hematologic/Lymphatic Hematologic/Lymphatic: Denies easy bleeding or easy bruising Allergic/Immunologic Allergic/Immunologic ED: Denies mouth swelling, tongue swelling or urticaria EXAM Physical Exam Narrative Exam Narrative: Well-appearing 28-year-old male. Vital signs are stable afebrile. No acute distress. H EENT exam unremarkable. Neck nontender. Lungs clear to auscultation bilaterally. Heart regular rate and rhythm no murmur. Chest wall ribs nontender. Abdomen soft nondistended normal bowel sounds no peritoneal signs. He does have right upper and right lower quadrant tenderness. No Baumann sign. No hernia or mass. No signs of obstruction. No signs of trauma. Left side of the abdomen is nontender. Back nontender. Moving all 4 extremities. Nontender no edema. Normal rang (more content not included)... Normal [facility] Epithelial cells.squamous LM Ql (Urine sed)Ordered By: Tay Pinto on 08-14-2024 Epithelial cells.squamous LM.HPF (Urine sed) [#/Area] 0 /[HPF] 0-5 [facility] Erythrocyte distribution wid th standard deviationOrdered By: Tay Pinto on 08-14-2024 Erythrocyte distribution width (RBC) [Entitic vol] 38.5 fL 35.1-43.9 [facility] Estimated glomerular filtrat ion rate (GFR) AmericanOrdered By: Tay Pinto on 08-14-2024 Estimated GFR (MDRD) Amer 122 mL/min >60 [facility] Comment on above: GFR Calc Estimation of creatinine dulce aranceOrdered By: Tay Pinto on 08-14-2024 Estimated Creatinine Clearance Calc 155.19 ml/min [facility] Glomerular filtration rate ( GFR) estimationOrdered By: Tay Pinto on 08-14-2024 Estimated GFR (MDRD) Non-Af Amer 101 mL/min >60 [facility] Comment on above: Non- GFR Calc Glucose Ql (U)Ordered By: Damian Pinto on 08-14-2024 Urine Glucose (UA) Normal mg/dl Normal [facility] Immature granulocytes/100 WB C Auto (Bld)Ordered By: Tay Pinto on 08-14-2024 Immature granulocytes/100 WBC (Bld) 0.100 % 0.0-0.9 [facility] Comment on above: IG% - Immature Granu locytes (promyelocytes, myelocytes and metamyelocytes) > 1% indicates that a LEFT SHIFT is Present. Ketones Test strip Ql (U)Ord ered By: Tay Pinto on 08-14-2024 Ketones Ql (U) Negative Negative [facility] LipaseOrdered By: Tay avila on 08-14-2024 Lipase [Catalytic activity/Vol] 25 U/L Normal 13-75 [facility] Comment on above: Result Comment: Angelic hahn note: LIPASE revised reference range effective 22. New Lipase methodology. Expected to produce lower values than the previous assay method. NEW Reference Range: 13 - 75 U/L Performed By: #### L 501.2450, L100.0100, L500.4050 ####[facility] [address] [place], [address] Please note:LIPASE r evised reference range effective 22. New Lipase methodology. Expected to produce lower values than the previous assay method. NEW Reference Range: 13 - 75 U/L Lymphocytes Auto (Unsp spec) [#/Vol]Ordered By: Tay Pinto on 08-14-2024 Lymphocytes (Bld) [#/Vol] 1.96 10*3/uL 0.83-4.51 [facility] MR/POSTOP.ANEon 08-14-2024 MR/POSTOP.[facility] Medical Records Department [address] [place] [address] Anesthesia Postop Eval I 08/14/24 1226 MR#: [id number] Acct: [id number] Name: CHAVEZSALMABLACK BOBY Rep #: [id number] : 1995 28 From: Mahendra Medley CRNA PCP: DAVID HOBBS [place] [facility] [place] Race[place] C Location: [place] [address] Anesthesia: Postop Eval I Current Vital Signs Temperature: 98.1 F Pulse Rate: 71 Blood Pressure: 134/92 Respiratory Rate: 22 Pulse Ox: 96 Oxygen Delivery Method: Room Air Assessment Airway patent: Yes Spontaneous unlabored respirations: Yes Mental status: Awake and Calm nausea: No Vomiting: No Anesthesia Complication: No Fluid Hydration Crystalloid volume administer (ml): 800 Total IV fluid infused: 800 Progress Note Anesthesia document: Postop Eval 1 completed: Yes 08/14/24 1227 Date Mahendra Medley CRNA Cosigner Signature: Date CC: Signed Normal [facility] MR/[id number] 08-14-2024 /POST[address] Medical Records Department [address] [place] [address] Anesthesia Postop Eval II 08/14/24 2109 MR#: [id number] Acct: [id number] Name: BLACK CHAVEZ Rep #: [id number] : 1995 28 From: Matheus Meredith MD PCP: DAVID HOBBS [place] [facility] [place] Race[place] C [place] [facility] [place] Anesthesia Postop Eval I Sum Postop Eval Completion status Anesthesia document: Postop Eval 1 completed: Yes Anesthesia Postop Eval I Summary Anesthesia Postop Eval I Summary: Anesthesia Postop Eval I: Assessment Summary Airway patent Yes 08/14/24 12:27 INDEPENDENT LIVING INSTRUCTOR.RWOO Spontaneous unlabored Yes 08/14/24 12:27 INDEPENDENT LIVING INSTRUCTOR.RWOO respirations Mental status Awake,Calm 08/14/24 12:27 INDEPENDENT LIVING INSTRUCTOR.RWOO nausea No 08/14/24 12:27 INDEPENDENT LIVING INSTRUCTOR.RWOO Vomiting No 08/14/24 12:27 INDEPENDENT LIVING INSTRUCTOR.RWOO Anesthesia Postop Eval I: Fluid Summary Crystalloid volume administer 800 08/14/24 12:27 INDEPENDENT LIVING INSTRUCTOR.RWOO (ml) Colloids volume administered ( ml) Blood Product volume administered (ml) Total IV fluid infused 800 08/14/24 12:27 INDEPENDENT LIVING INSTRUCTOR.RWOO Anesthesia Postop Eval I: Summary Notes Anesthesia Complication No 08/14/24 12:27 INDEPENDENT LIVING INSTRUCTOR.RWOO Anesthesia Complication Comment: Post-operative progress note Anesthesia: Postop Eval II Evaluation Mental status: Awake and Calm Pain Level: 1 nausea: No Vomiting: No Complications Anesthesia Complication: No 08/14/242108 Date Matheus Meredith MD Cosigner Signature: Date CC: Signed Normal [facility] Microscopic analysis of urin e for red blood cells (RBC)Ordered By: Tay Pinto on 08-14-2024 Urine RBC 0-5 SEEN /hpf 0-5 [facility] Mucus LM Ql (Urine sed)Order ed By: Tay Pinto on 08-14-2024 Mucus Ql (Urine sed) 2+ /hpf [facility] Nitrite Test strip Ql (U)Ord ered By: Tay Pinto on 08-14-2024 Nitrite Ql (U) Negative Negative [facility] Nucleated red blood cell per centageOrdered By: Tay Pinto on 08-14-2024 Nucleated RBC/100 WBC (Bld) [Ratio] 0 % 0-5 [facility] Operative Reporton Operative Report [facility] Medical Records Department [address] [place] [address] Operative Report 08/14/24 1139 MR#: [id number] Acct: [id number] Name: BLACK CHAVEZ Rep #: [id number] : 1995 From: Codey Delvalle MD PCP: DAVID HOBBS [place] [facility] [place] [facility] [place] Procedures Digestive 40xxx-49xxx: [address]345 Laparoscopy appendectomy Operative Report (Standard) Operative Information Date of Procedure: 08/14/24 Pre-Operative Diagnosis: Acute appendicitis Post-Operative Diagnosis: Acute uncomplicated appendicitis Surgery/Procedure Performed: Laparoscopic appendectomy digital solution architect: No Type of Anesthesia: General/Supplemental RN Documented Start/Stop Times: Operation Date: 08/14/24 10:00 Case Time Into Pre-Op 08/14/24 09:47 Anesthesia Start 08/14/24 10:23 Into Room 08/14/24 10:23 Out of Pre-Op 08/14/24 10:23 Procedure Start 08/14/24 10:42 Procedure End 08/14/24 11:39 Anesthesia End 08/14/24 11:43 Out of Room 08/14/24 11:43 Into Recovery 08/14/24 11:54 Out of Recovery 08/14/24 12:29 Into Phase II Recovery 08/14/24 12:30 Out of Phase II 08/14/24 14:41 Procedure Start Time: 10:42 Procedure Stop Time: 11:39 Select all DRAINS/GRAFTS/IMPLANTS that apply: None Estimated Blood Loss: 10 Specimen collected: Yes Description of specimen(s) removed: Appendix Description of surgery: After appropriate identification in the preoperative holding area, the patient was brought to the operating room and placed supine on the operating room table. Antibiotics had been preoperatively administered by emergency medicine. Patient was then induced with general endotracheal anesthetic. The abdomen was prepped and draped in usual sterile fashion. Formal timeout was conducted to confirm both the patient and the procedure. A supraumbilical incision was made and carried down to the level of the fascia which was sharply opened. After opening the peritoneum in like fashion a finger sweep was made to confirm position, and a balloon trocar was placed and pneumoperitoneum was established to 15 mmHg. Patient was positioned in Trendelenburg with the left side down. 2 additional 5 mm trocars were placed in the left lower quadrant and suprapubic positions. The peritoneum was inspected and there were no signs of inadvertent injury from this Marie entry. The appendix was visualized with mild to moderate inflammation approaching the appendiceal tip which was adherent to the sale of the appendix and some fatty tissue adjacent to the cecum. Using blunt laparoscopic dissection, a window was made in the mesoappendix adjacent to the appendiceal base. Then the base of the appendix was sealed and amputated with the use of an Endo NAINA stapler. Given its adherence to the surrounding fatty tissue the mesoappendix was divided adjacent to the appendix with application of a laparoscopic harmonic. Once the specimen was completely from the adjacent cecum the appendix was placed in an Endo Catch bag. The staple line was inspected for hemostasis. There was some initial oozing while the mesoappendix was divided but after utilizing suction crude unit operator to closely examine the surgical site there was no ongoing bleeding. After hemostasis was confirmed the appendix was removed from the umbilical port site. Pneumoperitoneum was then evacuated and the supraumbilical port site fascia was closed with #1 Vicryl in a eqhxxn-by-rpyyb fashion. The port sites were infiltrated with 25 mL local anesthetic. The skin of each port site was closed with 4-0 Monocryl in a subcuticular fashion. Steri-Strips and OpSite dressings were applied. Patient tolerated procedure well without any apparent complications. They were awoken from general anesthetic without issue and transferred to post anesthesia care unit for ongoing recovery. Surgical Findings: ??? Acutely inflamed appendix whose tip inflammation appeared to involve the subcutaneous tissue adjacent to the cecum but there is no evidence of richy perforation in the appendiceal base was largely spared of any inflammation Complications Complications: No 08/14/241807 Cosigner Signature (if applicable): CC: DAVID CORONADO; Dr. Codey Delvalle MD Signed Normal [facility] Protein Test strip Ql (U)Ord ered By: Tay Pinto on 08-14-2024 Protein Ql (U) 15 mg/dl High Negative [facility] Serum anion gap measurementO rdered By: Tay Pinto on 08-14-2024 Anion gap [Moles/Vol] 6 mmol/L 5-15 [facility] Serum or plasma alkaline miguel sphatase measurementOrdered By: Tay Pinto on 08-14-2024 ALP [Catalytic activity/Vol] 65 U/L 45-117 [facility] Serum or plasma calcium didi urement (mass/volume)Ordered By: Tay Pinto on 08-14-2024 Calcium [Mass/Vol] 9.7 mg/dL 8.5-10.1 [facility] Surgery Specimen Level IIIon 08-14-2024 Surgery Specimen Level III ---- Patient Age/Sex Location Account Attending Physician ---- BLACK CHAVEZ 28/[place] [facility] [id number]. Codey Delvalle MD ---- Specimen: [id number] Received: 08/14/24 Status: GIANFRANCO Hameed Num: [id number] Spec Type: APPENDIX Subm Dr: Dr. Codey Delvalle MD HEADER OPERATION: Laparoscopic appendectomy PRE-OP DIAGNOSIS: Acute appendicitis TISSUE SUBMITTED: Appendix ---- MICROSCOPIC DIAGNOSIS Appendix, appendectomy: Acute periappendicitis. See comment. SJ.mr 08/16/2024 COMMENT The entire specimen is examined. Lumen is almost completely obliterated. No luminal or mucosal acute inflammation is noted. Periappendiceal adipose tissue shows focal fat necrosis, acute and chronic inflammation, granulation tissue reaction, abscess formation, congestion and hemorrhage. Results are reported to Dr. Delvalle office on 08/16/2024. Clinical correlation and appropriate follow up are necessary. Case has been reviewed in consultation with Dr. Chavez who concurs with the above diagnosis. IDC:FA MICROSCOPIC DESCRIPTION Slides are reviewed. GROSS DESCRIPTION Received in fixative is one container labeled with the patient's name and designated appendix. The specimen consists of an appendix and a separate round tissue fragment. The appendix measures in length 8cm and in greatest width 2cm. There is apparent exudate on the surface and vascular congestion. A staple line is noted. There is no evidence grossly of perforation. Sectioning reveals focal hemorrhage and possible exudate especially in the proximal portion in the lumen. [employer] Operations Staff Officer sections are submitted in three cassettes with the proximal margin from the staple line and the transverse section appendiceal end in cassette 1, the bisected round tissue fragment previously grossly described in cassette 3 with cross sections of appendix. PW.mr 08/14/2024 More sections are submitted as follows: 4 5- rest of the appendix, 6 7- pericolonic adipose tissue with area of hemorrhage. SJ.mr 08/15/2024 TC:3 ---- Patient Age/Sex Location Account Attending Physician ---- BLACK CHAVEZ [place] [id number] Dr. Codey Delvalle MD ---- CPT: 68433 ---- Patient Age/Sex Location Account Attending Physician ---- BLACK CHAVEZ /[facility] [place] [id number] Dr. Codey Delvalle MD ---- Signed (signature on file) Dr. Guillaume Jensen MD 08/16/24 1221 ---- Normal [facility] Comment on above: Performed By: #### P SUIII ####[facility] [address] [place], [address] Total proteinOrdered By: Baljit Pinto on 08-14-2024 Protein [Mass/Vol] 7.7 g/dL 6.4-8.2 [facility] Urinalysis, Completeon 08-14 BACTERIA 1+ /hpf Normal None Seen [facility] Comment on above: Order Comment: CLEAN CATCH Performed By: #### L 400.0001 ####[facility] [address] [place], [address] EPI,SQUAMOUS 0-5 SEEN Normal 0-5 [facility] Comment on above: Order Comment: CLEAN CATCH Performed By: #### L 400.0001 ####[facility] [address] [place], [address] Mucus Ql (Urine sed) 2+ /hpf Normal [facility] Comment on above: Order Comment: CLEAN CATCH Performed By: #### L 400.0001 ####[facility] [address] [place], [address] RBC 0-5 SEEN Normal 0-5 [facility] Comment on above: Order Comment: CLEAN CATCH Performed By: #### L 400.0001 ####[facility] [address] [place], [address] WBC 0-5 SEEN Normal 0-5 [facility] Comment on above: Order Comment: CLEAN CATCH Performed By: #### L 400.0001 ####[facility] [address] [place], [address] Urine blood detectionOrdered By: Tay Pinto on 08-14-2024 Urine Occult Blood 50 /ul High Negative [facility] Urine clarityOrdered By: Baljit Pinto on 08-14-2024 Clarity (U) Sl. Cloudy Clear [facility] Urine color determinationOrd ered By: Tay Pinto on 08-14-2024 Color (U) Yellow Yellow [facility] Urine leukocyte esterase det ection by dipstickOrdered By: Tay Pinto on 08-14-2024 Leukocyte esterase Test strip Ql (U) 25 /ul High Negative [facility] Urine pHOrdered By: Tay peralta on 08-14-2024 pH (U) 6.0 [pH] 5.0 - 8.0 [facility] Urine sediment bacteria coun t by microscopy (number/high power field)Ordered By: Tay Pinto on 08-14-2024 Bacteria LM.HPF (Urine sed) [#/Area] 1 /[HPF] None Seen [facility] Urine specific gravity measu rementOrdered By: Tay Pinto on 08-14-2024 Specific gravity (U) [Rel density] 1.020 1.002-1.030 [facility] Urobilinogen Ql (U)Ordered B y: Tay Pinto on 08-14-2024 Urine Urobilinogen Normal mg/dl Normal [facility] White blood cell countOrdere d By: Tay Pinto on 08-14-2024 Urine WBC 0-5 SEEN /hpf 0-5 [facility] Cardiology Visit Reporton Cardiology Visit Report [facility] [address] [place] [address] OFFICE VISIT Date of Service: 06/13/24 MR#: [id number] Acct: [id number] Name: BLACK CHAVEZ Rep #: [id number] : 1995 Provider: Dr. Bruce dominguez MD Age/Sex: 28/M Location: [facility] Status: Signed HPI HPI History of Present Illness Details: 08/14/2019: 28-year-old male who works at our [employer] coming to see me for palpitations and elevated blood pressure.??? Patient was recently started on Norvasc.??? His blood pressure initially kept going up despite the Norvasc and today it is under better control than usual.??? He also has episodes of palpitations that last anywhere from 30 seconds to sometimes even 1 hour.??? It is not always exertional and can happen when he is just sitting and watching TV.??? He does get migraine headaches.??? He has had episodic increase in blood pressure as well. 10/16/2019: Black has noticed significant improvement after starting Coreg.??? His event monitoring did not reveal episodes of what appears to be sinus tachycardia and also a 3 beat run of idioventricular rhythm.??? He denies significant symptoms since last visit. 04/15/2020: Black has been doing fairly well.??? His palpitations are better.??? He did have a sleep study which revealed sleep apnea and he is scheduled to come back to the sleep lab for CPAP titration in early May. 10/21/2020: Doing well.??? His palpitations have improved significantly after starting the beta- lamont.??? He had a sleep study which was apparently borderline positive.??? He was told that CPAP may not help him significantly.??? Black wants to work on lifestyle measures and see if this helps with sleep apnea.??? We will consider repeating the sleep study in about a year. 10/13/2021: He has noticed that his socks leave a stanislav due to trace edema.??? Rarely he has palpitations that last 3 to 4 seconds.??? He denies any symptoms suggestive of sleep apnea.??? Feels well overall. 12/15/2021: Black is doing well from a cardiac standpoint.??? However he has noticed that he gets a headache when he starts exercising.??? This has been more pronounced after starting the hydrochlorothiazide. 06/08/2022: Doing well.??? Blood pressure is controlled today but usually runs in the 140s systolic.??? Occasionally has palpitations but this is overall improved after starting beta-lamont. 12/22/2022: Doing well. Denies any cardiac complaints. Blood pressure has been mostly controlled as an outpatient as well. 12/20/2023: Doing well. Has occasional palpitations where he feels about 5 5 beats followed by a short pause and then feels better. This sometimes happens a few times a week and then does not happen for a couple of weeks. 06/13/2024: Doing well. Occasional palpitations which are not worse from baseline. Blood pressure has been running better at home as well. Intake Vital Signs 06/12/24 08:07 06/13/24 08:20 06/13/24 08:22 Height 5 ft 11 in 5 ft 11 in Weight: 267 lb BMI 37.2 BP 137/81 H Blood Pressure Location Lt brachial Position Sitting Respiration 18 Pulse 81 Pulse Source Monitor Pulse Oximetry (%) 98 Intake Visit Reasons: 6 M [employer] Required: No Is patient in pain?: No Allergies hydromorphone (From Dilaudid) Allergy (Severe, Verified 06/13/24 11:00) Unknown pollen extracts Allergy (Severe, Verified 06/13/24 11:00) Unknown Medications ???Medication ???Instructions ???Recorded ???Confirmed ???Type rizatriptan 10 mg tablet (Maxalt) 10 mg PO ONCE PRN migraines 08/14/19 06/13/24 History acetaminophen 500 mg tablet 500 mg PO Q4H PRN PRN Pain Score 01/16/21 06/13/24 Rx 1-5/10 #0 tabs ibuprofen 200 mg tablet 400 mg (2 x 200 mg) PO Q6H PRN PRN 01/16/21 06/13/24 Rx Pain Score 4-10/10 #0 tabs lisinopril 10 mg tablet 10 mg PO DAILY #30 tabs 03/13/22 06/13/24 Rx carvedilol 25 mg tablet 25 mg PO BID #60 tabs 12/20/23 06/13/24 Rx amlodipine 10 mg tablet 10 mg PO DAILY #90 tabs 02/10/24 06/13/24 Rx PFSH Medical History Alcohol use Cardiology follow-up encounter Essential hypertension History of kidney stones Hypersomnolence Migraines Non-smoker Palpitations Seasonal allergies Sleep apnea Wears contact lenses Surgical History History of tonsillectomy ( 2016) Hx of nasal septoplasty Family History Sister Hypertension Brother Hypertension Mother Hypertension Heart disease Father Hypertension Social History Smoking Status: Never smoker alcohol intake: current alcohol intake frequency: a few times a month substance use type: does (more content not included)... Normal [facility] 12 [place] [facility] [place]23 12 Lead EKG performed by [facility] [address] [place] [address] 12 [place] [facility] [place]/20/23 111 MR#: [id number] Acct: [id number] Name: BLACK CHAVEZ Rep #: [id number] : 1995 28 From: Bruce Gastelum MD Attending Dr: Dr. Bruce Gastelum MD Statu s: DEP AMB Ordering Dr: Bruce Gastelum MD Date: 4 Location: [facility] Sex: M C [place] [facility] [place] [facility] [place] ECG Report Interpretation ----Sinus Rhythm -Right axis -may be normal for age. PROBABLY NORMAL FOR AGEElectronically signed on 12/20/2023 at 14:[address] Codey Moseley Software Version [id number] 12/20/23 1429 Date Bruce Gastelum MD CC: DAVID CORONADO Date Dictated: 12/20/231114 Date Transcribed: 12/20/231114 Stunt Driver: NEENA Signed Normal [facility] Cardiology Visit Reporton Cardiology Visit Report [facility] [address] [place] [address] OFFICE VISIT Date of Service: 12/20/23 MR#: [id number] Acct: [id number] Name: BLACK CHAVEZ Rep #: [id number] : 1995 Provider: Dr. Bruce dominguez MD Age/Sex: 28/M Location: [facility] Status: Signed [facility] History of Present Illness Details: ???08/14/2019: 28-year-old male who works at our [employer] coming to see me for palpitations and elevated blood pressure.??? Patient was recently started on Norvasc.??? His blood pressure initially kept going up despite the Norvasc and today it is under better control than usual.??? He also has episodes of palpitations that last anywhere from 30 seconds to sometimes even 1 hour.??? It is not always exertional and can happen when he is just sitting and watching TV.??? He does get migraine headaches.??? He has had episodic increase in blood pressure as well. 10/16/2019: Black has noticed significant improvement after starting Coreg.??? His event monitoring did not reveal episodes of what appears to be sinus tachycardia and also a 3 beat run of idioventricular rhythm.??? He denies significant symptoms since last visit. 04/15/2020: Black has been doing fairly well.??? His palpitations are better.??? He did have a sleep study which revealed sleep apnea and he is scheduled to come back to the sleep lab for CPAP titration in early May. 10/21/2020: Doing well.??? His palpitations have improved significantly after starting the beta- lamont.??? He had a sleep study which was apparently borderline positive.??? He was told that CPAP may not help him significantly.??? Black wants to work on lifestyle measures and see if this helps with sleep apnea.??? We will consider repeating the sleep study in about a year. 10/13/2021: He has noticed that his socks leave a stanislav due to trace edema.??? Rarely he has palpitations that last 3 to 4 seconds.??? He denies any symptoms suggestive of sleep apnea.??? Feels well overall. 12/15/2021: Black is doing well from a cardiac standpoint.??? However he has noticed that he gets a headache when he starts exercising.??? This has been more pronounced after starting the hydrochlorothiazide. 06/08/2022: Doing well.??? Blood pressure is controlled today but usually runs in the 140s systolic.??? Occasionally has palpitations but this is overall improved after starting beta-lamont. 12/22/2022: Doing well. Denies any cardiac complaints. Blood pressure has been mostly controlled as an outpatient as well. 12/20/2023: Doing well. Has occasional palpitations where he feels about 5 5 beats followed by a short pause and then feels better. This sometimes happens a few times a week and then does not happen for a couple of weeks. Intake Vital Signs 12/22/22 13:07 12/20/23 07:25 Height 5 ft 11 in 5 ft 11 in Weight: 270 lb BMI 37.6 BP 158/78 H Blood Pressure Location Lt brachial Position Sitting Respiration 20 H Pulse 81 Pulse Source Monitor Pulse Oximetry (%) 95 Intake Visit Reasons: 1 Y [employer] Required: No Is patient in pain?: No Allergies hydromorphone (From Dilaudid) Allergy (Severe, Verified 12/20/23 11:15) Unknown pollen extracts Allergy (Severe, Verified 12/20/23 11:15) Unknown Medications ???Medication ???Instructions ???Recorded ???Confirmed ???Type rizatriptan 10 mg tablet (Maxalt) 10 mg PO ONCE PRN migraines 08/14/19 12/20/23 History acetaminophen 500 mg tablet 500 mg PO Q4H PRN PRN Pain Score 01/16/21 12/20/23 Rx 1-5/10 #0 tabs ibuprofen 200 mg tablet 400 mg (2 x 200 mg) PO Q6H PRN PRN 01/16/21 12/20/23 Rx Pain Score 4-10/10 #0 tabs lisinopril 10 mg tablet 10 mg PO DAILY #30 tabs 03/13/22 12/20/23 Rx amlodipine 10 mg tablet 10 mg PO DAILY #90 tabs 02/03/23 12/20/23 Rx carvedilol 25 mg tablet 25 mg PO BID #60 tabs 12/20/23 12/20/23 Rx PFSH Medical History Alcohol use Cardiology follow-up encounter Essential hypertension History of kidney stones Hypersomnolence Migraines Non-smoker Palpitations Seasonal allergies Sleep apnea Wears contact lenses Surgical History History of tonsillectomy ( 2016) Hx of nasal septoplasty Family History Sister Hypertension Brother Hypertension Mother Hypertension Heart disease Father Hypertension Social History Smoking Status: Never smoker alcohol intake: current alcohol intake frequency: a few times a month substance use type: does not use caffeine: Yes Type: coffee Number of servings: 1 ROS Const Const: Negative for fatigue, weakness, body ache, fever(s), headache(s), chil (more content not included)... Normal [facility] Amorphous sediment detection in urine sediment by light microscopyOrdered By: Tina [place] on 08-09-2023 Amorphous sediment LM Ql (Urine sed) 4+ [facility] Basophil percentageOrdered B y: Tina [place] on 08-09-2023 Basophil percentage 0 SEEN /hpf 0-5 [facility] Bilirubin Test strip Ql (U)O rdered By: Tina [place] on 08-09-2023 Bilirubin Ql (U) Negative Negative [facility] Calcium oxalate crystals det ection in urine sediment by light microscopyOrdered By: Tina [place] on 08-09-2023 Calcium oxalate crystals LM Ql (Urine sed) 1+ /hpf [facility] Ketones Test strip Ql (U)Ord ered By: Tina [place] on 08-09-2023 Ketones Ql (U) Negative Negative [facility] Mucus LM Ql (Urine sed)Order ed By: Tina [place] on 08-09-2023 Mucus Ql (Urine sed) 0 SEEN /hpf [facility] Nitrite Test strip Ql (U)Ord ered By: Tina [place] on 08-09-2023 Nitrite Ql (U) Negative Negative [facility] Protein Test strip Ql (U)Ord ered By: Tina [place] on 08-09-2023 Protein Ql (U) Negative Negative [facility] Squamous epithelial cells de tection in urine sediment by light microscopyOrdered By: Tina [place] on 08-09-2023 Epithelial cells.squamous LM Ql (Urine sed) 0 SEEN /hpf 0-5 [facility] Urine blood detectionOrdered By: Tina [place] on 08-09-2023 RBC Ql (U) 25 /ul Negative [facility] RBC Ql (U) 0 SEEN /hpf 0-5 [facility] Urine clarityOrdered By: Hardik morrell [place] on 08-09-2023 Clarity (U) Cloudy Clear [facility] Urine color determinationOrd ered By: Tina [place] on 08-09-2023 Color (U) Yellow Yellow [facility] Urine glucose detectionOrder ed By: Tina [place] on 08-09-2023 Glucose Ql (U) Normal mg/dl Normal [facility] Urine leukocyte esterase det ection by dipstickOrdered By: Tina [place] on 08-09-2023 Leukocyte esterase Test strip Ql (U) Negative Negative [facility] Urine pHOrdered By: Tina [place] on 08-09-2023 pH (U) 5.0 [pH] 5.0 - 8.0 [facility] Urine sediment bacteria coun t by microscopy (number/high power field)Ordered By: Tina [place] on 08-09-2023 Bacteria LM.HPF (Urine sed) [#/Area] 0 /[HPF] None Seen [facility] Urine specific gravity measu rementOrdered By: Tina [place] on 08-09-2023 Specific gravity (U) [Rel density] 1.025 1.002-1.030 [facility] Urobilinogen Auto test strip Ql (U)Ordered By: Tina [place] on 08-09-2023 Urobilinogen Ql (U) Normal mg/dl Normal [facility] Basophil percentageOrdered B y: LAURIE NOANDREI on 06-09-2023 Bilirubin [Mass/Vol] 0.50 mg/dL 0.20-1.00 [facility] Comment on above: For patients on eltr ombopag therapy, use of Dimension [place] TBIL is not recommended. Chloride [Moles/Vol] 105 mmol/L 98-107 [facility] Cholesterol [Mass/Vol] 225 mg/dL <200 [facility] Comment on above: <200 mg/dL Desirable 200-240 mg/dL Borderline >240 mg/dL High Risk Glucose [Mass/Vol] 107 mg/dL 74-106 [facility] Comment on above: Fasting Glucose resu lt from 100 to 125 mg/dL suggests IMPAIRED HOMEOSTASIS per A.D.A. criteria. Potassium [Moles/Vol] 4.2 mmol/L 3.5-5.1 [facility] Protein [Mass/Vol] 8.2 g/dL 6.4-8.2 [facility] Sodium [Moles/Vol] 137 mmol/L 136-145 [facility] Triglyceride [Mass/Vol] 166 mg/dL <199 [facility] Comment on above: The drugs N-Acetylcy steine and Metamizole may falsely depress this assay.Serum Triglycerides Reference Interval Normal <150 mg/dL Borderline high 150 - 199 mg/dL High 200 - 499 mg/dL Very High > or = 500 mg/dL WBC (Bld) [#/Vol] 6.9 10*3/uL 4.4-11.0 [facility] Blood erythrocytes count (nu mber/volume)Ordered By: LAURIE CORONADO on 06-09-2023 RBC (Bld) [#/Vol] 5.15 10*6/uL 4.6-6.2 [facility] Blood hemoglobin measurement (mass/volume)Ordered By: LAURIE CORONADO on 06-09-2023 Hemoglobin (Bld) [Mass/Vol] 14.5 g/dL 13.0-16.5 [facility] Blood platelet mean volumeOr dered By: LAURIE CORONADO on 06-09-2023 Platelet mean volume (Bld) [Entitic vol] 8.8 fL 6.2-12.0 [facility] Determination of erythrocyte mean corpuscular volume (MCV)Ordered By: LAURIE CORONADO on 06-09-2023 MCV (RBC) [Entitic vol] 87.6 fL 80-94 [facility] Hematocrit Auto (Bld) [Volum e fraction]Ordered By: LAURIE CORONADO on 06-09-2023 Hematocrit (Bld) [Volume fraction] 45.1 % 40-54 [facility] Laboratory - Chemistry and C hemistry - challengeOrdered By: LAURIE CORONADO on 06-09-2023 ALP [Catalytic activity/Vol] 67 U/L 45-117 [facility] ALT [Catalytic activity/Vol] 85 U/L 16-61 [facility] CO2 [Moles/Vol] 27.0 mmol/L 21.0-32.0 [facility] Globulin (S) [Mass/Vol] 4.0 g/dL 2.2-4.2 [facility] Urea nitrogen/Creatinine [Mass ratio] 17.0 mg/mg 10-20 [facility] Laboratory - Hematology and Cell countsOrdered By: LAURIE CORONADO on 06-09-2023 Erythrocyte distribution width (RBC) [Entitic vol] 39.2 fL 35.1-43.9 [facility] Erythrocyte distribution width (RBC) [Ratio] 12.2 % 11.6-14.6 [facility] MCH (RBC) [Entitic mass] 28.2 pg 27.0-32.0 [facility] MCHC Auto (RBC) [Mass/Vol]Or dered By: LAURIE CORONADO on 06-09-2023 MCHC (RBC) [Mass/Vol] 32.2 g/dL 32-36 [facility] No Panel InformationOrdered By: LAURIE CORONADO on 06-09-2023 Estimated GFR (MDRD) Amer 143 mL/min >60 [facility] Comment on above: GFR Calc Estimated GFR (MDRD) Non-Af Amer 118 mL/min >60 [facility] Comment on above: Non- GFR Calc Platelets bldOrdered By: KENYATTA CORONADO on 06-09-2023 Platelets (Bld) [#/Vol] 405 10*3/uL 150-450 [facility] Serum or plasma albumin didi urement (mass/volume)Ordered By: LAURIE CORONADO on 06-09-2023 Albumin [Mass/Vol] 4.2 g/dL 3.2-5.0 [facility] Serum or plasma albumin/glob ulin mass ratioOrdered By: LAURIE CORONADO on 06-09-2023 Albumin/Globulin [Mass ratio] 1.0 {ratio} 0.9-2.4 [facility] Serum or plasma calcium didi urement (mass/volume)Ordered By: LAURIE CORONADO on 06-09-2023 Calcium [Mass/Vol] 10.1 mg/dL 8.5-10.1 [facility] Serum or plasma cholesterol in HDL measurement (mass/volume)Ordered By: LAURIE CORONADO on 06-09-2023 Cholesterol in HDL [Mass/Vol] 38 mg/dL >40 [facility] Comment on above: The drugs N-Acetylcy steine and Metamizole may falsely depress this assay. Reference Range HDL <40 mg/dL Low HDL Cholesterol HDL >or= 60 mg/dL High HDL Cholesterol Serum or plasma cholesterol in VLDL measurement (mass/volume)Ordered By: LAURIE CORONADO on 06-09-2023 Cholesterol in VLDL [Mass/Vol] 33 mg/dL 5-40 [facility] Serum or plasma creatinine m easurement (mass/volume)Ordered By: LAURIE CORONADO on 06-09-2023 Creatinine [Mass/Vol] 0.82 mg/dL 0.70-1.30 [facility] Comment on above: The validity of the calculated GFR & GFRAA in patients over 70 years has not been determined. Clinical correlation is essential. Serum or plasma low density lipoprotein (LDL) cholesterol measurement (mass/volume)Ordered By: LAURIE CORONADO on 06-09-2023 Cholesterol in LDL [Mass/Vol] 154 mg/dL 0-130 [facility] Serum or plasma urea nitroge n measurement (mass/volume)Ordered By: LAURIE CORONADO on 06-09-2023 Urea nitrogen [Mass/Vol] 14 mg/dL 7-18 [facility] Thin prep Papanicolaou smear with manual screeningOrdered By: LAURIE CORONADO on 06-09-2023 Thin prep Papanicolaou smear with manual screening 29 U/L 15-37 [facility] Thin prep Papanicolaou smear with manual screening 5 5-15 [facility] UA DIP B/Oon 06-09-2023 Bilirubin Ql (U) Negative Neg [facility] Color/Appearance CLEAR YELLOW [facility] Glucose Ql (U) Negative Neg mg/dL [facility] Hemoglobin Ql (U) LARGE HEMOLYZED Neg [facility] Ketones Ql (U) Negative Neg [facility] Leukocytes 15 Neg [facility] Nitrite Ql (U) Negative Neg [facility] pH (U) 5.0 [pH] 4.5 - 8.0 [facility] Protein.monoclonal (U) [Mass/Vol] Negative Neg mg/dL [facility] Specific Horace, Ur 1.020 1.005 - 1.030 [facility] Urobilinogen, Urine NORMAL Normal (<1.1) EU [facility] Absolute lymphocyte countOrd ered By: Daniel Castorena on 09-12-2022 Lymphocytes Auto (Unsp spec) [#/Vol] 0.43 10*3/uL 0.83-4.51 [facility] Basophil percentageOrdered B y: Daniel Castorena on 09-12-2022 Basophils/100 WBC (Bld) 0.2 % 0-1 [facility] Bilirubin [Mass/Vol] 0.60 mg/dL 0.20-1.00 [facility] Comment on above: For patients on eltr ombopag therapy, use of Dimension [place] TBIL is not recommended. Chloride [Moles/Vol] 110 mmol/L 98-107 [facility] Eosinophils/100 WBC (Bld) 0.2 % 0-5 [facility] Glucose [Mass/Vol] 131 mg/dL 74-106 [facility] Comment on above: Fasting Glucose resu lt greater than or equal to 126 mg/dL suggests DIABETES MELLITUS per A.D.A. criteria. Neutrophils (Bld) [#/Vol] 11.1 10*3/uL 2.0-7.7 [facility] Neutrophils/100 WBC (Bld) 91.6 % 47-70 [facility] Potassium [Moles/Vol] 3.9 mmol/L 3.5-5.1 [facility] Protein [Mass/Vol] 8.3 g/dL 6.4-8.2 [facility] Sodium [Moles/Vol] 140 mmol/L 136-145 [facility] WBC (Bld) [#/Vol] 12.1 10*3/uL 4.4-11.0 [facility] Blood erythrocytes count (nu mber/volume)Ordered By: Daniel Castorena on 09-12-2022 RBC (Bld) [#/Vol] 5.44 10*6/uL 4.6-6.2 [facility] Blood hemoglobin measurement (mass/volume)Ordered By: Daniel Castorena on 09-12-2022 Hemoglobin (Bld) [Mass/Vol] 15.1 g/dL 13.0-16.5 [facility] Blood lymphocytes/100 leukoc ytesOrdered By: Daniel Castorena on 09-12-2022 Lymphocytes/100 WBC (Bld) 3.6 % 19-41 [facility] Blood manual differential co mment interpretation (narrative result)Ordered By: Daniel Castorena on 09-12-2022 Manual differential comment Hunter (Bld) [Interp] SCANNED [facility] Blood monocytes/100 leukocyt esOrdered By: Daniel Castorena on 09-12-2022 Monocytes/100 WBC (Bld) 4.0 % 0-10 [facility] Blood platelet mean volumeOr dered By: Daniel Castorena on 09-12-2022 Platelet mean volume (Bld) [Entitic vol] 9.2 fL 6.2-12.0 [facility] Determination of erythrocyte mean corpuscular volume (MCV)Ordered By: Daniel Castorena on 09-12-2022 MCV (RBC) [Entitic vol] 85.3 fL 80-94 [facility] Hematocrit Auto (Bld) [Volum e fraction]Ordered By: Daniel Castorena on 09-12-2022 Hematocrit (Bld) [Volume fraction] 46.4 % 40-54 [facility] Laboratory - Chemistry and C hemistry - challengeOrdered By: Daniel Castorena on 09-12-2022 ALP [Catalytic activity/Vol] 62 U/L 45-117 [facility] ALT [Catalytic activity/Vol] 88 U/L 16-61 [facility] CO2 [Moles/Vol] 21.0 mmol/L 21.0-32.0 [facility] Globulin (S) [Mass/Vol] 3.7 g/dL 2.2-4.2 [facility] Lipase [Catalytic activity/Vol] 63 U/L 73-393 [facility] Urea nitrogen/Creatinine [Mass ratio] 20.0 mg/mg 10-20 [facility] Laboratory - Hematology and Cell countsOrdered By: Daniel Castorena on 09-12-2022 Erythrocyte distribution width (RBC) [Entitic vol] 40.0 fL 35.1-43.9 [facility] Erythrocyte distribution width (RBC) [Ratio] 13.1 % 11.6-14.6 [facility] Immature granulocytes/100 WBC (Bld) 0.400 % 0.0-0.9 [facility] Comment on above: IG% - Immature Granu locytes (promyelocytes, myelocytes and metamyelocytes) > 1% indicates that a LEFT SHIFT is Present. MCH (RBC) [Entitic mass] 27.8 pg 27.0-32.0 [facility] Nucleated RBC/100 WBC (Bld) [Ratio] 0 % 0-5 [facility] MCHC Auto (RBC) [Mass/Vol]Or dered By: Daniel Castorena on 09-12-2022 MCHC (RBC) [Mass/Vol] 32.5 g/dL 32-36 [facility] No Panel InformationOrdered By: Daniel Castorena on 09-12-2022 Estimated Creatinine Clearance Calc 103.67 ml/min [facility] Estimated GFR (MDRD) Amer 98 mL/min >60 [facility] Comment on above: GFR Calc Estimated GFR (MDRD) Non-Af Amer 81 mL/min >60 [facility] Comment on above: Non- GFR Calc Platelets bldOrdered By: Krista Castorena on 09-12-2022 Platelets (Bld) [#/Vol] 386 10*3/uL 150-450 [facility] Serum or plasma albumin didi urement (mass/volume)Ordered By: Daniel Castorena on 09-12-2022 Albumin [Mass/Vol] 4.6 g/dL 3.2-5.0 [facility] Serum or plasma albumin/glob ulin mass ratioOrdered By: Daniel Castorena on 09-12-2022 Albumin/Globulin [Mass ratio] 1.2 {ratio} 0.9-2.4 [facility] Serum or plasma calcium didi urement (mass/volume)Ordered By: Daniel Castorena on 09-12-2022 Calcium [Mass/Vol] 9.9 mg/dL 8.5-10.1 [facility] Serum or plasma creatinine m easurement (mass/volume)Ordered By: Daniel Castorena on 09-12-2022 Creatinine [Mass/Vol] 1.15 mg/dL 0.70-1.30 [facility] Comment on above: The validity of the calculated GFR & GFRAA in patients over 70 years has not been determined. Clinical correlation is essential. Serum or plasma urea nitroge n measurement (mass/volume)Ordered By: Daniel Castorena on 09-12-2022 Urea nitrogen [Mass/Vol] 23 mg/dL 7-18 [facility] Thin prep Papanicolaou smear with manual screeningOrdered By: Daniel Castorena on 09-12-2022 Thin prep Papanicolaou smear with manual screening 30 U/L 15-37 [facility] Thin prep Papanicolaou smear with manual screening 9 5-15 [facility] CBC W/DIFFon 11-08-2018 BASO ABS 0.10 K/CU MM Normal 0-0.2 [facility] Comment on above: Performed By: #### L 500.22629, L500.90853, L500.00544 #### [facility] [address] [place] [address] Basophils/100 WBC (Bld) 0.8 % Normal 0-2 [facility] Comment on above: Performed By: #### L 500.07316, L500.92106, L500.76148 #### [facility] [address] [place] [id number] EOS ABS 0.30 K/CU MM Normal 0-0.5 [facility] Comment on above: Performed By: #### L 500.72882, L500.20466, L500.04266 #### [facility] [address] [place], [place] [id number] Eosinophils/100 WBC (Bld) 4.1 % Normal 0-5 [facility] Comment on above: Performed By: #### L 500.65873, L500.83077, L500.34835 #### [facility] [address] [place], [place] [id number] Erythrocyte distribution width Ratio (RBC) 12.2 % Normal 11-14.5 [facility] Comment on above: Performed By: #### L 500.44912, L500.06206, L500.93479 #### [facility] [address] [place] [address] Hematocrit Volume Fraction (Bld) 44.7 % Normal 41.0-53.0 [facility] Comment on above: Performed By: #### L 500.65133, L500.08915, L500.64608 #### [facility] [address] [place] [address] Hemoglobin mass conc (Bld) 14.7 g/dL Normal 13.5-17.5 [facility] Comment on above: Performed By: #### L 500.44441, L500.89211, L500.25496 #### [facility] [address] [place] [address] IMMATR GRAN ABS 0.00 K/CU MM Normal Less than 2 [facility] Comment on above: Performed By: #### L 500.07292, L500.86634, L500.82169 #### [facility] [address] [place] [address] IMMATURE GRAN % 0.2 % Normal Less than 2 [facility] Comment on above: Performed By: #### L 500.53468, L500.41670, L500.55083 #### [facility] [address] [place] [address] Lymphocytes #/vol (Bld) 2.30 K/CU MM Normal 0.9-4.4 [facility] Comment on above: Performed By: #### L 500.37358, L500.68664, L500.81730 #### [facility] [address] [place] [address] Lymphocytes/100 WBC (Bld) 37.6 % Normal 20-40 [facility] Comment on above: Performed By: #### L 500.30816, L500.29974, L500.55908 #### [facility] [address] [place] [address] MCHC mass conc (RBC) 32.9 g/dL Normal 32.0-36.0 [facility] Comment on above: Performed By: #### L 500.99370, L500.22001, L500.98183 #### [facility] [address] [place] [address] MCV Entitic volume (RBC) 88.5 fL Normal 80.0-99.0 [facility] Comment on above: Performed By: #### L 500.96137, L500.27847, L500.49209 #### [facility] [address] [place] [address] MONO ABS 0.60 K/CU MM Normal 0.1-1.1 [facility] Comment on above: Performed By: #### L 500.57845, L500.55440, L500.94256 #### [facility] [address] [place] [address] Monocytes/100 WBC (Bld) 9.8 % Normal 2-10 [facility] Comment on above: Performed By: #### L 500.35875, L500.82842, L500.93854 #### [facility] [address] [place] [address] NEUTROPHIL ABS 2.90 K/CU MM Normal 2.0-8.3 [facility] Comment on above: Performed By: #### L 500.66929, L500.44679, L500.07795 #### [facility] [address] [place] [address] Neutrophils/100 WBC (Bld) 47.5 % Normal 45-75 [facility] Comment on above: Performed By: #### L 500.08789, L500.90875, L500.22536 #### [facility] [address] [place] [address] Nucleated RBC/100 WBC Ratio (Bld) 0.0 % Normal Less than 1 [facility] Comment on above: Performed By: #### L 500.29907, L500.60092, L500.78020 #### [facility] [address] [place], [place] [address] Platelet mean volume Entitic volume (Bld) 9.2 fL Low 9.4-12.4 [facility] Comment on above: Performed By: #### L 500.27344, L500.03307, L500.86854 #### [facility] [address] [place] [address] Platelets #/vol (Bld) 375 K/CU MM Normal 150-450 [facility] Comment on above: Performed By: #### L 500.42992, L500.42547, L500.95072 #### [facility] [address] [place] [address] RBC #/vol (Bld) 5.05 M/CU MM Normal 4.50-6.00 [facility] Comment on above: Performed By: #### L 500.96835, L500.99475, L500.83210 #### [facility] [address] [place] [address] WBC #/vol (Bld) 6.0 K/CUMM Normal 4.5-11.0 [facility] Comment on above: Performed By: #### L 500.69349, L500.53415, L500.12400 #### [facility] [address] [place], [place] [address] CMPon 11-08-2018 Albumin mass conc 4.4 g/dL Normal 3.2-5.0 [facility] Comment on above: Performed By: #### L 500.58594, L500.63736, L500.25527 #### [facility] [place] [address] Albumin/Globulin mass ratio 1.5 {ratio} Normal 0.8-2.0 [facility] Comment on above: Performed By: #### L 500.93610, L500.72338, L500.96943 #### [facility] [place] [id number] ALK PHOS 67 U/L Normal 45-117 [facility] Comment on above: Performed By: #### L 500.81822, L500.20133, L500.28523 #### [facility] [address] [place] [address] ALT enzyme act/vol 58 U/L Normal 13-61 [facility] Comment on above: Result Comment: RESU LTS MAY BE FALSELY DEPRESSED AFTER THE ADMINISTRATION OF SULFASALAZINE AND/OR SULFAPYRIDINE. Performed By: #### L 500.00613, L500.92585, L500.99251 #### [facility] [place] [address] Anion gap molar conc 7 mmol/L Normal 5-16 [facility] Comment on above: Performed By: #### L 500.92845, L500.81744, L500.10280 #### [facility] [place] [address] BILI TOTAL 0.5 MG/DL Normal 0.2-1.0 [facility] Comment on above: Performed By: #### L 500.75246, L500.23487, L500.47383 #### [facility] [place] [address] Calcium mass conc 10.0 mg/dL Normal 8.5-10.1 [facility] Comment on above: Performed By: #### L 500.31962, L500.44154, L500.85499 #### [facility] [address] [place], [place] [address] Chloride molar conc 107 mmol/L Normal 98-107 [facility] Comment on above: Performed By: #### L 500.04237, L500.24686, L500.60821 #### [facility] [address] [place] [address] CO2 molar conc 26 mmol/L Normal 21-32 [facility] Comment on above: Performed By: #### L 500.29497, L500.09926, L500.16192 #### [facility] [address] [place] [address] Creatinine mass conc 0.933 mg/dL Normal 0.670-1.170 [facility] Comment on above: Result Comment: Chaparrita ents receiving either N-Acetylcysteine (NAC) or Metamizole prior to venipuncture, may have falsely depressed results. Performed By: #### L 500.31157, L500.96698, L500.18285 #### [facility] [address] [place], [place] [address] Globulin mass conc (S) 3.0 g/dL Normal 2.2-4.2 [facility] Comment on above: Performed By: #### L 500.23685, L500.08095, L500.97211 #### [facility] [address] [place], [place] [address] Glucose mass conc 91 mg/dL Normal 70-100 [facility] Comment on above: Result Comment: 70-1 00- Normal Fasting; 100-125 Impaired Fasting; greater than 126 on more than one result- Diabetes. ADA guidelines. Results may be falsely elevated after the administration of Sulfapyridine. Results may be falsely depressed after the administration of Sulfasalazine. Performed By: #### L 500.40693, L500.91819, L500.46821 #### [facility] [place] [address] Potassium molar conc 4.5 mmol/L Normal 3.5-5.1 [facility] Comment on above: Performed By: #### L 500.28542, L500.60183, L500.10252 #### [facility] [address] [place] [address] Protein mass conc 7.4 g/dL Normal 6.0-8.5 [facility] Comment on above: Performed By: #### L 500.61165, L500.91017, L500.34418 #### [facility] [address] [place] [address] SGOT (AST) 26 U/L Normal 8-34 [facility] Comment on above: Result Comment: RESU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 Salinas Completed Time: 01/06/2018 04:04 By Saul Salinas Noted Time: 01/06/2018 03:58 KVB Results Time: 01/06/2018 04:04 BMP 01/06/2018 04:15 N/A Ordered: 01/06/2018 03:41 By Saul Salinas Completed Time: 01/06/2018 04:15 By Saul Salinas Noted Time: 01/06/2018 03:58 KVB Results Time: 01/06/2018 04:15 Pepcid (IV)(20mg/2ml) DOSE: 20 mg IV 01/06/2018 03:58 N/A Ordered: 01/06/2018 03:41 By Saul Salinas Completed Time: 01/06/2018 03:57 By Saul Salinas Noted Time: 01/06/2018 03:43 KVB Reglan (IV)*(10mg/2ml) DOSE: 10 mg IV 01/06/2018 03:58 N/A Ordered: 01/06/2018 03:41 By Saul Salinas Completed Time: 01/06/2018 03:57 By Saul Salinas [facility] PATIENT NAME: BLACK CHAVEZ [address] [facility] [address] Cuellar MEDICAL REC #: [id number] [place] [address] EMERGENCY DEPARTMENT CHART EMERGENCY DEPARTMENT PHYSICIAN Noted Time: 01/06/2018 03:43 KVB DISCHARGE Diagnosis: acute gastroenteritis, acute Mimi-Arce tear 01/06/2018 06:00 CANCELLED DIAGNOSES Diagnosis Name: acute gastroenteritis, acute Mimi-Arce tear Diagnosis Name: acute gastroenteritis, acute Mimi-Arce tear Diagnosis Name: acute gastroenteritis, acute Mimi-Arce tear Diagnosis Name: acute gastroenteritis, acute Mimi-Arce tear Disposition: Time: 01/06/2018 05:59 By: Saul Salinas Discharge Time: 01/06/2018 06:12 Type: Discharge Condition: Stable for admission/discharge/tr ansfer after emergency evaluation/treatment Category: *NOT APPLICABLE Concurred: 01/06/2018 06:00 Referral: 01/06/2018 06:00 PRESCRIPTIONS ZOFRAN ODT 4 mg Tab, Rapid Dissolve 01/06/2018 05:59 SI q6h Nausea Dispense: 8 / Refills: CHARGES 0.9% NS 1000cc bag QTY @ 1 01/06/2018 03:59 KVB Auto Generated Charge SIGNATURE Saul Bell RN [facility] PATIENT NAME: BLACK CHAVEZ [address] [place], [place] [address]marcello Cuellar MEDICAL REC #: [id number] [place] [address] EMERGENCY DEPARTMENT CHART EMERGENCY DEPARTMENT PHYSICIAN THU LIAO RN KVB [facility] PATIENT NAME: BLACK CHAVEZ [facility] Asha Cuellar MEDICAL REC #: [id number] [place] [address] EMERGENCY DEPARTMENT CHART EMERGENCY DEPARTMENT PHYSICIAN Normal [facility] ED Documentation This is a preliminar y report only, as the practitioner review and authentication has not occurred. Normal [facility] GFR ESTon 01-06-2018 IF AMER Greater than [address] [facility] Comment on above: Order Comment: Campu s: M Performed By: #### L [id number], L500.15167 #### [facility] [address] [place] [address] IF non-AFR AMER Greater than [address] [facility] Comment on above: Order Comment: Campu s: M Performed By: #### L 500.52420, L500.71751 #### [facility] [address] [place] [address] CT ABD/PELV W ORALANDIV CONT RASTon 12-05-2017 CT ABD/PELV W ORALANDIV CONTRAST CT ABD/PELV W ORAL&IV CONTRAST Ordering Physician: Laurie Coronado 12/05/2017 9:[address] ABDOMEN PELVIS WITH CONTRAST Clinical Statement: Right flank pain, right upper quadrant pain, hematochezia, hematuria Comparison: None TECHNIQUE: Dated six images of the abdomen and pelvis were obtained following the uneventful administration of 100 cc Isovue-300 and enteric contrast. FINDINGS: Images obtained through the lung bases are unremarkable. The liver, spleen, pancreas, gallbladder and adrenal glands are unremarkable. The kidneys are symmetric in size. There is a punctate nonobstructing calcification in each kidney measuring 2 to 3 mm. There is no hydronephrosis. The ureters are normal in course and caliber. The urinary bladder and prostate gland are unremarkable. The abdominal aorta is normal in course and caliber. The stomach, small bowel and colon, including the appendix are normal in course and caliber. There is moderate fecal material scattered throughout the colon. There is no intraperitoneal free air, focal fluid collection or pathologic adenopathy. IMPRESSION: 1. No acute abnormality. 2. Bilateral nephrolithiasis without obstructive uropathy. ---- Electronic Signature on File ---- Signed By: Ingrid Arevalo MD [email or web address] Dictated: 12/05/2017 9:21 AM Signed: 12/05/2017 9:47 AM Reported By: INGRID AREVALO M.D. Signed By: INGRID AREVALO M.D. [facility] Vinny DOSEKENYATTAHaily 12-05-2017 DOSETRACK Test Dose report. Name: NOLA Avila Accession Number: [id number] Dose Type: CT Exam: ABPOI-C Max CTDIVol: 23.01 mGy DLP: 1220.32 mGy*cm CT 3 CT ABD/PELV W ORAL IV [id number] Abdomen 660.0000 660.0000 1 [id number] [id number] Abdomen 660.0000 660.0000 1 [id number] Abdomen [id number] 1220.6272405076 20.0000 1.3800 498.7500 800.0000 269503 1 25.87 [facility] PATIENT NAME: BLACK CHAVEZ Asha Cuellar MEDICAL REC #: [id number] [place] [address] ADMIT DATE: DISCHARGE DATE: DOSETRACK ATTENDING PHY: Laurie Coronado CNP [facility] PATIENT NAME: BLACK CHAVEZ Asha SalvadorW. MEDICAL REC #: [id number] [place] [address] ADMIT DATE: DISCHARGE DATE: ATTENDING PHY: Laurie Coronado CNP Normal [facility] DOSETRACK Normal [facility] CBC W/DIFFon 11-21-2017 BASO ABS 0.10 K/CU MM Normal 0-0.2 [facility] Comment on above: Performed By: #### L 200.91556 #### [facility] [address] [place] [address] Basophils/100 WBC (Bld) 1.0 % Normal 0-2 M [facility] Comment on above: Performed By: #### L 200.94610 #### [facility] [address] [place] [address] EOS ABS 0.40 K/CU MM Normal 0-0.5 [facility] Comment on above: Performed By: #### L 200.46087 #### [facility] [address] [place] [address] Eosinophils/100 WBC (Bld) 5.9 % High 0-5 [facility] Comment on above: Performed By: #### L 200.58031 #### [facility] [address] [place] [address] Erythrocyte distribution width Ratio (RBC) 12.1 % Normal 11-14.5 [facility] Comment on above: Performed By: #### L 200.43518 #### [facility] [address] [place] [address] Hematocrit Volume Fraction (Bld) 45.2 % Normal 41.0-53.0 [facility] Comment on above: Performed By: #### L 200.75474 #### [facility] [address] [place] [address] Hemoglobin mass conc (Bld) 14.9 g/dL Normal 13.5-17.5 [facility] Comment on above: Performed By: #### L 200.77418 #### [facility] [address] [place] [address] IMMATR GRAN ABS 0.00 K/CU MM Normal Less than 2 [facility] Comment on above: Performed By: #### L 200.71888 #### [facility] [address] [place] [address] IMMATURE GRAN % 0.2 % Normal Less than 2 [facility] Comment on above: Performed By: #### L 200.36068 #### [facility] [address] [place] [address] Lymphocytes #/vol (Bld) 1.70 K/CU MM Normal 0.9-4.4 [facility] Comment on above: Performed By: #### L 200.05817 #### [facility] [address] [place] [address] Lymphocytes/100 WBC (Bld) 29.4 % Normal 20-40 [facility] Comment on above: Performed By: #### L 200.73947 #### [facility] [address] [place] [address] MCHC mass conc (RBC) 33.0 g/dL Normal 32.0-36.0 [facility] Comment on above: Performed By: #### L 200.69950 #### [facility] [address] [place] [address] MCV Entitic volume (RBC) 87.9 fL Normal 80.0-99.0 [facility] Comment on above: Performed By: #### L 200.87582 #### [facility] [address] [place] [address] MONO ABS 0.60 K/CU MM Normal 0.1-1.1 [facility] Comment on above: Performed By: #### L 200.25719 #### [facility] [address] [place] [address] Monocytes/100 WBC (Bld) 9.5 % Normal 2-10 M [facility] Comment on above: Performed By: #### L 200.58608 #### [facility] [address] [place] [address] NEUTROPHIL ABS 3.20 K/CU MM Normal 2.0-8.3 [facility] Comment on above: Performed By: #### L 200.79230 #### [facility] [address] [place] [address] Neutrophils/100 WBC (Bld) 54.0 % Normal 45-75 [facility] Comment on above: Performed By: #### L 200.12809 #### [facility] [address] [place] [address] Nucleated RBC/100 WBC Ratio (Bld) 0.0 % Normal Less than 1 [facility] Comment on above: Performed By: #### L 200.13811 #### [facility] [address] [place] [address] Platelet mean volume Entitic volume (Bld) 9.0 fL Low 9.4-12.4 [facility] Comment on above: Performed By: #### L 200.35097 #### [facility] [address] [place] [address] Platelets #/vol (Bld) 398 K/CU MM Normal 150-450 [facility] Comment on above: Performed By: #### L 200.13430 #### [facility] [address] [place] [address] RBC #/vol (Bld) 5.14 M/CU MM Normal 4.50-6.00 [facility] Comment on above: Performed By: #### L 200.71978 #### [facility] [address] [place], [place] [id number] WBC #/vol (Bld) 5.9 K/CU MM Normal 4.5-11.0 [facility] Comment on above: Performed By: #### L 200.36565 #### [facility] [address] [place] [address] CMPon 11-21-2017 Albumin mass conc 4.5 g/dL Normal 3.2-5.0 [facility] Comment on above: Performed By: #### L 500.73557, L500.69054, L500.93585 #### [facility] [address] [place] [address] Albumin/Globulin mass ratio 1.3 {ratio} Normal 0.8-2.0 [facility] Comment on above: Performed By: #### L [id number], L500.50042, L500.16353 #### [facility] [address] [place] [address] ALK PHOS 64 U/L Normal 45-117 [facility] Comment on above: Performed By: #### L 500.93409, L500.93413, L500.75234 #### [facility] [address] [place] [id number] ALT enzyme act/vol 73 U/L High 13-61 [facility] Comment on above: Result Comment: RESU LTS MAY BE FALSELY DEPRESSED AFTER THE ADMINISTRATION OF SULFASALAZINE AND/OR SULFAPYRIDINE. Performed By: #### L 500.73965, L500.64642, L500.19676 #### [facility] [address] [place], [place] [id number] Anion gap molar conc 7 mmol/L Normal 5-16 [facility] Comment on above: Performed By: #### L 500.05711, L500.49247, L500.14176 #### [facility] [address] [place] [address] BILI TOTAL 0.5 MG/DL Normal 0.2-1.0 [facility] Comment on above: Performed By: #### L 500.40464, L500.93070, L500.04439 #### [facility] [address] [place] [address] Calcium mass conc 10.1 mg/dL Normal 8.5-10.1 [facility] Comment on above: Performed By: #### L 500.59928, L500.64269, L500.11257 #### [facility] [address] [place] [address] Chloride molar conc 104 mmol/L Normal 98-107 [facility] Comment on above: Performed By: #### L 500.89414, L500.09037, L500.67196 #### [facility] [address] [place] [address] CO2 molar conc 28 mmol/L Normal 21-32 [facility] Comment on above: Performed By: #### L 500.53758, L500.22189, L500.56016 #### [facility] [address] [place] [address] Creatinine mass conc 0.819 mg/dL Normal 0.670-1.170 [facility] Comment on above: Result Comment: Chaparrita ents receiving either N-Acetylcysteine (NAC) or Metamizole prior to venipuncture, may have falsely depressed results. Performed By: #### L 500.71724, L500.75273, L500.04689 #### [facility] [address] [place], [place] [id number] Globulin mass conc (S) 3.5 g/dL Normal 2.2-4.2 [facility] Comment on above: Performed By: #### L 500.92794, L500.12188, L500.06194 #### [facility] [place] [id number] Glucose mass conc 91 mg/dL Normal 70-100 [facility] Comment on above: Result Comment: 70-1 00- Normal Fasting; 100-125 Impaired Fasting; greater than 126 on more than one result- Diabetes. ADA guidelines. Results may be falsely elevated after the administration of Sulfapyridine. Results may be falsely depressed after the administration of Sulfasalazine. Performed By: #### L 500.00006, L500.03573, L500.30625 #### [facility] [address] [place] [address] Potassium molar conc 4.1 mmol/L Normal 3.5-5.1 [facility] Comment on above: Performed By: #### L 500.88588, L500.88454, L500.40114 #### [facility] [address] [place] [address] Protein mass conc 8.0 g/dL Normal 6.0-8.5 [facility] Comment on above: Performed By: #### L 500.95664, L500.71452, L500.21635 #### [facility] [address] [place] [address]48 SGOT (AST) 47 U/L High 8-34 [facility] Comment on above: Result Comment: RESU LTS MAY BE FALSELY DEPRESSED AFTER THE ADMINISTRATION OF SULFASALAZINE AND/OR SULFAPYRIDINE. Performed By: #### L 500.94695, L500.08145, L500.69886 #### [facility] [address] [place] [address] Sodium molar conc 138 mmol/L Normal 136-145 [facility] Comment on above: Performed By: #### L 500.01549, L500.05945, L500.65375 #### [facility] [address] [place], [place] [id number] Urea nitrogen mass conc 18 mg/dL Normal 7-26 [facility] Comment on above: Performed By: #### L 500.28310, L500.54476, L500.26173 #### [facility] [place] [address] Urea nitrogen/Creatinine mass ratio 22 mg/mg Normal 15-24 [facility] Comment on above: Performed By: #### L 500.01801, L500.73133, L500.27715 #### [facility] [address] [place] [address] GFR ESTon 11-21-2017 IF AMER Greater than 60 Normal [facility] Comment on above: Performed By: #### L 500.95130, L500.09274, L500.06372 #### [facility] [address] [place] [address] IF non-AFR AMER Greater than 60 Normal [facility] Comment on above: Performed By: #### L 500.82523, L500.13888, L500.07070 #### [facility] [address] [place] [address] TSHon 11-21-2017 Thyrotropin Qn 1.120 UIU/ML Normal 0.358-3.740 [facility] Comment on above: Result Comment: 3rd generation ultra sensitive TSH Performed By: #### L 500.89540, L500.58871, L500.86150 #### [facility] [address] [place] [address] Vital Signs Date Time Vital Sign Value Performing Clinician Khushboo akbar 10-11-2024 11:56-0400 Body temperature 97.4 [degF] LAURIE HERNANDEZ Work Phone: [facility] 10-11-2024 11:56-0400 Diastolic blood pressure 77 mm[Hg] LAURIE CORONADO NP-C Work Phone: [facility] 10-11-2024 11:56-0400 Respiratory rate 16 /min LAURIE NOLING CORRECTION OFFICER-C Work Phone: [facility] 10-11-2024 11:56-0400 SaO2% (BldA) [Mass fraction] 98 % LAURIE NOLING CORRECTION OFFICER-C Work Phone: [facility] 10-11-2024 11:56-0400 Systolic blood pressure 131 mm[Hg] LAURIE NOLING CORRECTION OFFICER-C Work Phone: [facility] 10-11-2024 11:51-0400 Heart rate 80 /min LAURIE NOLING CORRECTION OFFICER-C Work Phone: [facility] 10-11-2024 09:43-0400 Body height 180.34 cm LAURIE NOLING CORRECTION OFFICER-C Work Phone: [facility] 10-11-2024 09:43-0400 Body mass index (BMI) [Ratio] 36.7 kg/m2 LAURIE NOLING CORRECTION OFFICER-C Work Phone: [facility] 10-11-2024 09:43-0400 Body weight 119.5 kg LAURIE NOLING CORRECTION OFFICER-C Work Phone: [facility] 09-19-2024 08:18-0500 Body height 179 cm Laurie Noling COMMERCIAL LOAN OFFICER.METAL BURNISHER Work Phone: [facility] 09-19-2024 08:18-0500 Body mass index (BMI) [Ratio] 38.79 kg/m2 Laurie Noling COMMERCIAL LOAN OFFICER.METAL BURNISHER Work Phone: [facility] 09-19-2024 08:18-0500 Body temperature 97.7 [degF] Laurie Noling COMMERCIAL LOAN OFFICER.METAL BURNISHER Work Phone: [facility] 09-19-2024 08:18-0500 Body weight 124.29 kg Laurie Noling COMMERCIAL LOAN OFFICER.METAL BURNISHER Work Phone: [facility] 09-19-2024 08:18-0500 Diastolic blood pressure 84 mm[Hg] Laurie Noling COMMERCIAL LOAN OFFICER.METAL BURNISHER Work Phone: [facility] 09-19-2024 08:18-0500 Heart rate 70 /min Laurie Noling COMMERCIAL LOAN OFFICER.METAL BURNISHER Work Phone: [facility] 09-19-2024 08:18-0500 Respiratory rate 18 /min Laurie Noling COMMERCIAL LOAN OFFICER.METAL BURNISHER Work Phone: [facility] 09-19-2024 08:18-0500 SaO2% (BldA) [Mass fraction] 96 % Laurie Noling COMMERCIAL LOAN OFFICER.METAL BURNISHER Work Phone: [facility] 09-19-2024 08:18-0500 Systolic blood pressure 124 mm[Hg] Laurie Noling COMMERCIAL LOAN OFFICER.METAL BURNISHER Work Phone: [facility] 08-22-2024 13:20-0500 Diastolic blood pressure 74 mm[Hg] LAURIE NOLING CORRECTION OFFICER-C Work Phone: [facility] 08-22-2024 13:20-0500 Heart rate 97 /min LAURIE NOLING CORRECTION OFFICER-C Work Phone: [facility] 08-22-2024 13:20-0500 Respiratory rate 17 /min LAURIE NOLING CORRECTION OFFICER-C Work Phone: [facility] 08-22-2024 13:20-0500 SaO2% (BldA) [Mass fraction] 97 % LAURIE NOLING CORRECTION OFFICER-C Work Phone: [facility] 08-22-2024 13:20-0500 Systolic blood pressure 151 mm[Hg] LAURIE NOLING CORRECTION OFFICER-C Work Phone: [facility] 08-14-2024 14:09-0500 Body temperature 98.2 [degF] LAURIE NOLING CORRECTION OFFICER-C Work Phone: [facility] 08-14-2024 14:09-0500 Diastolic blood pressure 82 mm[Hg] LAURIE NOLING CORRECTION OFFICER-C Work Phone: [facility] 08-14-2024 14:09-0500 Heart rate 68 /min LAURIE NOLING CORRECTION OFFICER-C Work Phone: [facility] 08-14-2024 14:09-0500 Respiratory rate 14 /min LAURIE NOLING CORRECTION OFFICER-C Work Phone: [facility] 08-14-2024 14:09-0500 SaO2% (BldA) [Mass fraction] 96 % LAURIE NOLING CORRECTION OFFICER-C Work Phone: [facility] 08-14-2024 14:09-0500 Systolic blood pressure 128 mm[Hg] LUARIE NOLING CORRECTION OFFICER-C Work Phone: [facility] 08-14-2024 06:40-0500 Body mass index (BMI) [Ratio] 37.3 kg/m2 LAURIE NOLING CORRECTION OFFICER-C Work Phone: [facility] 08-14-2024 06:40-0500 Body weight 121.5 kg LAURIE NOLING CORRECTION OFFICER-C Work Phone: [facility] 06-13-2024 08:20-0500 Body mass index (BMI) [Ratio] 37.2 kg/m2 LAURIE NOLING CORRECTION OFFICER-C Work Phone: [facility] 06-13-2024 08:20-0500 Body weight 121.1 kg LAURIE NOLING CORRECTION OFFICER-C Work Phone: [facility] 06-13-2024 08:20-0500 Diastolic blood pressure 81 mm[Hg] LAURIE NOLING CORRECTION OFFICER-C Work Phone: [facility] 06-13-2024 08:20-0500 Heart rate 81 /min LAURIE NOLING CORRECTION OFFICER-C Work Phone: [facility] 06-13-2024 08:20-0500 Respiratory rate 18 /min LAURIE NOLING CORRECTION OFFICER-C Work Phone: [facility] 06-13-2024 08:20-0500 SaO2% (BldA) [Mass fraction] 98 % LAURIE NOLING CORRECTION OFFICER-C Work Phone: [facility] 06-13-2024 08:20-0500 Systolic blood pressure 137 mm[Hg] LAURIE NOLING CORRECTION OFFICER-C Work Phone: [facility] 06-09-2023 08:10-0500 Body height 179.1 cm Laurie Noling COMMERCIAL LOAN OFFICER.METAL BURNISHER Work Phone: [facility] 06-09-2023 08:10-0500 Body temperature 98.4 [degF] Laurie Noling COMMERCIAL LOAN OFFICER.METAL BURNISHER Work Phone: [facility] 06-09-2023 08:10-0500 Body weight 120.2 kg Laurie Noling COMMERCIAL LOAN OFFICER.METAL BURNISHER Work Phone: [facility] 06-09-2023 08:10-0500 Diastolic blood pressure 92 mm[Hg] Laurie Noling COMMERCIAL LOAN OFFICER.METAL BURNISHER Work Phone: [facility] 06-09-2023 08:10-0500 Heart rate 83 /min Laurie Noling COMMERCIAL LOAN OFFICER.METAL BURNISHER Work Phone: [facility] 06-09-2023 08:10-0500 Respiratory rate 18 /min Laurie Noling COMMERCIAL LOAN OFFICER.METAL BURNISHER Work Phone: [facility] 06-09-2023 08:10-0500 SaO2% (BldA) [Mass fraction] 97 % Laurie Noling COMMERCIAL LOAN OFFICER.METAL BURNISHER Work Phone: [facility] 06-09-2023 08:10-0500 Systolic blood pressure 146 mm[Hg] Laurie Noling COMMERCIAL LOAN OFFICER.METAL BURNISHER Work Phone: [facility] 09-12-2022 12:41-0500 Diastolic blood pressure 79 mm[Hg] Dr. Bruce Gastelum Work Phone: [facility] 09-12-2022 12:41-0500 Heart rate 120 /min Dr. Bruce Gastelum Work Phone: [facility] 09-12-2022 12:41-0500 Respiratory rate 16 /min Dr. Bruce Gastelum Work Phone: [facility] 09-12-2022 12:41-0500 SaO2% (BldA) [Mass fraction] 97 % Dr. Bruce Gastelum Work Phone: [facility] 09-12-2022 12:41-0500 Systolic blood pressure 137 mm[Hg] Dr. Bruce Gastelum Work Phone: [facility] 09-12-2022 10:12-0500 Body height 180.[address] Bruce Gastelum Work Phone: [facility] 09-12-2022 10:12-0500 Body mass index (BMI) [Ratio] 37.6 kg/m2 Dr. Bruce Gastelum Work Phone: [facility] 09-12-2022 10:12-0500 Body temperature 97.9 [degF] Dr. Bruce Gastelum Work Phone: [facility] 09-12-2022 10:12-0500 Body weight 122.[address] Bruce Gastelum Work Phone: [facility] 08-27-2022 10:12-0500 Body height 180.3 cm Laurie Noling COMMERCIAL LOAN OFFICER.METAL BURNISHER Work Phone: [facility] 08-27-2022 10:12-0500 Body weight 124.74 kg Laurie Noling COMMERCIAL LOAN OFFICER.METAL BURNISHER Work Phone: [facility] 08-27-2022 10:12-0500 Diastolic blood pressure 90 mm[Hg] Laurie Noling COMMERCIAL LOAN OFFICER.METAL BURNISHER Work Phone: [facility] 08-27-2022 10:12-0500 Heart rate 76 /min Laurie Noling COMMERCIAL LOAN OFFICER.METAL BURNISHER Work Phone: [facility] 08-27-2022 10:12-0500 SaO2% (BldA) [Mass fraction] 99 % Laurie Noling COMMERCIAL LOAN OFFICER.METAL BURNISHER Work Phone: [facility] 08-27-2022 10:12-0500 Systolic blood pressure 144 mm[Hg] Laurie Noling COMMERCIAL LOAN OFFICER.METAL BURNISHER Work Phone: [facility] 06-16-2022 08:21-0500 Body height 180.3 cm Laurie Noling COMMERCIAL LOAN OFFICER.METAL BURNISHER Work Phone: [facility] 06-16-2022 08:21-0500 Body weight 126.1 kg Laurie Noling COMMERCIAL LOAN OFFICER.METAL BURNISHER Work Phone: [facility] 06-16-2022 08:21-0500 Diastolic blood pressure 82 mm[Hg] Laurie Noling COMMERCIAL LOAN OFFICER.METAL BURNISHER Work Phone: [facility] 06-16-2022 08:21-0500 Heart rate 91 /min Laurie Noling COMMERCIAL LOAN OFFICER.METAL BURNISHER Work Phone: [facility] 06-16-2022 08:21-0500 SaO2% (BldA) [Mass fraction] 98 % Laurie Noling COMMERCIAL LOAN OFFICER.METAL BURNISHER Work Phone: [facility] 06-16-2022 08:21-0500 Systolic blood pressure 144 mm[Hg] Laurie Noling COMMERCIAL LOAN OFFICER.METAL BURNISHER Work Phone: [facility] 06-08-2022 13:01-0500 Body mass index (BMI) [Ratio] 38.6 kg/m2 Dr. Bruce Gastelum Work Phone: [facility] 06-08-2022 13:01-0500 Body weight 125.[address] Bruce Gastelum Work Phone: [facility] 06-08-2022 13:01-0500 Diastolic blood pressure 78 mm[Hg] Dr. Bruce Gastelum Work Phone: [facility] 06-08-2022 13:01-0500 Heart rate 83 /min Dr. Bruce Gastelum Work Phone: [facility] 06-08-2022 13:01-0500 Respiratory rate 16 /min Dr. Bruce Gastelum Work Phone: [facility] 06-08-2022 13:01-0500 Systolic blood pressure 131 mm[Hg] Dr. Bruce Gastelum Work Phone: [facility] Encounters Encounter Date Encounter Type Care Provider Facility Start: 10-11-2024 ambulatory LAURIE NOLING Facility:[facility] Start: 10-11-2024 Non-patient / Non-visit Dr. Codey Delvalle MD -[facility] Start: 10-11-2024 End: 10-11-2024 Admission to same day surgery center Dr. Codey Delvalle MD -Endoscopy Work Phone: Start: 10-11-2024 End: 10-11-2024 ambulatory LAURIE NOLING Facility:[facility] Start: 09-19-2024 End: 09-19-2024 Office outpatient visit 15 minutes Laurie L Angela COMMERCIAL LOAN OFFICER.METAL BURNISHER Work Phone: [facility] [place] Comment on above: Chronic pain of righ t knee (Primary Dx); Special screening examination for viral disease; Screening for HIV (human immunodeficiency virus); Class 2 severe obesity with serious comorbidity and body mass index (BMI) of 38.0 to 38.9 in adult, unspecified obesity type (HCC); Impaired fasting glucose; Hepatic steatosis; Multiple renal calculi Start: 09-19-2024 End: 09-19-2024 ambulatory LAURIE L NOLING Facility:[id number] Start: 08-22-2024 End: 08-22-2024 Patient encounter procedure Thu Dozier PA-C -[facility] Work Phone: Start: 08-22-2024 End: 08-22-2024 ambulatory Thu Dozier Facility:[facility] Start: 08-14-2024 End: 08-14-2024 Admission to same day surgery center Dr. Codey Delvalle MD -[facility] Start: 08-14-2024 End: 08-14-2024 ambulatory LAURIE NOLING Facility:[facility] Start: 08-14-2024 Non-patient / Non-visit Dr. Codey Delvalle MD -[facility] Start: 06-22-2024 End: 06-22-2024 Refill Laurie L Angela COMMERCIAL LOAN OFFICER.METAL BURNISHER Work Phone: [facility] Comment on above: Refill Request Start: 06-13-2024 End: 06-14-2024 Patient encounter procedure [facility] Provider [facility] Start: 06-13-2024 End: 06-13-2024 ambulatory Nagapradee Nagajothi Facility:[facility] Start: 06-12-2024 ambulatory Nagapradee Nagajothi Fa cility:[facility] Start: 12-20-2023 Patient encounter procedure [facility] Provider [facility] Start: 12-20-2023 End: 12-20-2023 ambulatory LAURIE NOLING Facility:[facility] Start: 11-08-2023 ambulatory LAURIE NOLING Facility:[facility] Start: 08-10-2023 End: 08-10-2023 ambulatory [facility] Work Phone: Start: 08-10-2023 End: 08-10-2023 Patient encounter procedure [facility]-Ultrasound, [facility] Work Phone: Start: 08-09-2023 End: 08-09-2023 ambulatory [facility] Work Phone: Start: 08-09-2023 End: 08-09-2023 Patient encounter procedure [facility]-Laboratory, Specimen Work Phone: Start: 06-14-2023 Telephone encounter 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 Work Phone: [facility] Work Phone: Start: 06-09-2023 End: 06-09-2023 Periodic preventive med est patient 18-39 yrs Laurie Coronado COMMERCIAL LOAN OFFICER.METAL BURNISHER Work Phone: [facility] [place] Comment on above: Well adult exam ([facility] Dx); Class 2 severe obesity with serious comorbidity and body mass index (BMI) of 37.0 to 37.9 in adult, unspecified obesity type ; Benign essential hypertension; Right flank pain; Pyuria Start: 04-29-2023 Refill Laurie Coronado APRN.METAL BURNISHER Work Phone: [facility] Comment on above: Refill Request Start: 09-12-2022 End: 09-12-2022 Emergency department patient visit Dr. Bruce Gastelum Work Phone: [facility]-Emergency Department Start: 08-27-2022 End: 08-27-2022 Office outpatient visit 15 minutes Laurie Coronado APRN.METAL BURNISHER Work Phone: [facility] [place] Comment on above: Acute abdominal pain in right lower quadrant (Primary Dx); Right upper quadrant abdominal pain Start: 07-05-2022 Telephone encounter Laurie higuera APRN.FINA Work Phone: [facility] Comment on above: Orders Start: 06-16-2022 End: 06-16-2022 Patient encounter status Laurie Coronado COMMERCIAL LOAN OFFICER.METAL BURNISHER Work Phone: [facility] [place] Start: 06-16-2022 End: 06-16-2022 Periodic preventive med est patient 18-39 yrs Laurie Coronado COMMERCIAL LOAN OFFICER.METAL BURNISHER Work Phone: [facility] Comment on above: Wellness examination (Primary Dx); Benign essential hypertension; Migraine headaches; Class 2 severe obesity with serious comorbidity and body mass index (BMI) of 38.0 to 38.9 in adult, unspecified obesity type (HCC); Screening for diabetes mellitus; Abnormal weight gain; Special screening examination for viral disease; Screening for HIV (human immunodeficiency virus); Multiple nevi Start: 06-15-2022 Patient encounter status Laurie Coronado COMMERCIAL LOAN OFFICER.METAL BURNISHER Work Phone: [facility] Work Phone: Start: 06-08-2022 End: 06-08-[address] Bruce Gastelum Work Phone: [facility] Start: 11-08-2018 Patient encounter procedure Laurie Coronado Facility:[facility] Start: 08-07-2018 Emergency department patient visit [place] [facility] Facility:[facility] Start: 01-06-2018 [facility] Start: 12-15-2017 Patient encounter procedure Weston Gomes Facility:[facility] Start: 12-05-2017 Patient encounter procedure Laurie Coronado Facility:[facility] Start: 11-21-2017 Patient encounter procedure Laurie Coronado Facility:[facility] Procedures Date Procedure Procedure Detail Performing Clinician Start: 10-11-2024 Colonoscopy LAURIE ALARCON CORRECTION OFFICER-C Work Phone: Start: 08-14-2024 Computed tomography of abdomen and pelvis with intravenous contrast LAURIE CORONADO CORRECTION OFFICER-C Work Phone: Start: 08-10-2023 US urinary tract Start: 06-09-2023 Diagnostic radiograp hy of abdomen Start: 06-09-2023 Urnls dip stick/tabl et rgnt auto w/o microscopy Laurie Coronado COMMERCIAL LOAN OFFICER.METAL BURNISHER Work Phone: Plan of Treatment Date Care Activity Detail Author Start: 10-21-2026 Urine microalbumin profile [facility] Start: 09-19-[address] Thru Order Taker solomon Disease Visit Annual PCP Team Chronic Disease Visit [facility] Start: 09-19-2025 Anxiety Screening Anxiety Screening [facility] Comment on above: Postponed from 11/08 (Postponed To Appropriate Date) Start: 09-19-2025 Covid-19 Vaccine () Covid-19 Vaccine () [facility] Comment on above: Postponed from 04/01 (Declined at this time) Start: 09-19-2025 Depression Screening Depression Scre ening [facility] Comment on above: Postponed from 11/08 (Postponed To Appropriate Date) Start: 02-22-2025 End: 02-22-2025 Patient encounter procedure 02/22/2025 8:40 AM EDT Office Visit [facility] [address] [place] [address] Laurie Coronado APRN.METAL BURNISHER [address] [place] [address] Annual Wellness Exam [facility] An[facility]bal Comment on above: Annual Wellness Exam Start: 10-11-2024 [facility] Start: 09-19-2024 End: 09-19-2025 CBC panel - Blood by Automated count COMPLETE BLOOD COUNT Lab Routine Expected: 09/19/2024, Expires: 09/19/2025 [facility] Comment on above: Expected: 09/19/2024 , Expires: 09/19/2025 Start: 09-19-2024 End: 09-19-2025 Comprehensive metabolic 2000 panel - Serum or Plasma COMPREHENSIVE METABOLIC PANEL Lab Routine Expected: 09/19/2024, Expires: 09/19/2025 [facility] Work Phone: Comment on above: Expected: 09/19/2024 , Expires: 09/19/2025 Start: 09-19-2024 End: 09-19-2025 Hemoglobin A1c in Blood HEMOGLOBIN A1C Lab Routine Impaired fasting glucose Expected: 09/19/2024, Expires: 09/19/2025 [facility] Comment on above: Expected: 09/19/2024 , Expires: 09/19/2025 Start: 09-19-2024 End: 09-19-2025 Hepatitis C virus Ab [Presence] in Serum HEPATITIS C ANTIBODY IA WITH CONFIRMATION Lab Routine Special screening examination for viral disease Expected: 09/19/2024, Expires: 09/19/2025 [facility] Comment on above: Expected: 09/19/2024 , Expires: 09/19/2025 Start: 09-19-2024 End: 09-19-2025 HIV 1+2 Ab [Presence] in Serum or Plasma by Immunoassay HIV 1/2 COMBO WITH REFLEX TO DIFFERENTIATION Lab Routine Screening for HIV (human immunodeficiency virus) Expected: 09/19/2024, Expires: 09/19/2025 [facility] Comment on above: Expected: 09/19/2024 , Expires: 09/19/2025 Start: 09-19-2024 End: 09-19-2025 Lipid 1996 panel - Serum or Plasma LIPID PANEL BASIC Lab Routine Expected: 09/19/2024, Expires: 09/19/2025 [facility] Comment on above: Expected: 09/19/2024 , Expires: 09/19/2025 Start: 09-19-2024 End: 09-19-2024 Patient encounter procedure 09/19/2024 8:00 AM EST Office Visit [facility] Nikolaispencer [address] [place] [phone] Laurie Coronado, COMMERCIAL LOAN OFFICER.[facility] [address] [facility] [facility] [address] [place] [phone] Annual Wellness Exam [facility] Nikolaispencer Comment on above: Annual Wellness Exam Start: 08-14-2024 Anesthesia intraperitoneal lower abd w/laps nos ANESTH SURG LOWER ABDOMEN [facility] Start: 08-14-2024 Laparoscopic appendectomy LAPAROSCOPY APPENDECTOMY [facility] Start: 08-14-2024 Patient discharge [facility] Start: 08-14-2024 Hospital admission, emergency, from emergency room, medical nature [facility] Start: 08-14-2024 Preoperative care [facility] Start: 06-09-[address] Thru Order Taker solomon Disease Visit Annual PCP Team Chronic Disease Visit [facility] Start: 05-16-2024 End: 05-16-2024 Patient encounter procedure 05/16/2024 8:20 AM EDT Office Visit [facility] Care An[facility]bal [address] [place] [address] Laurie Coronado APRN.[employer] [address] [place] [phone] AWX [facility] Aníbal Comment on above: AWX Start: 04-01-2024 Covid-19 Vaccine () Covid-19 Vaccine () [facility] Start: 04-01-2024 Influenza vaccination Influenza Vacc ine (#1) [facility] Start: 08-27-2023 ANNUAL PCP TEAM MANAGER GYN SOLOMON DISEASE VISIT ANNUAL PCP TEAM CHRONIC DISEASE VISIT [facility] Start: 08-01-2023 Behavioral Health Screening Behavioral Health Screening [facility] Start: 06-16-2023 ANNUAL PCP TEAM MANAGER GYN SOLOMON DISEASE VISIT ANNUAL PCP TEAM CHRONIC DISEASE VISIT [facility] Start: 06-09-2023 End: 12-06-2023 CBC panel - Blood by Automated count CBC Lab Routine Well adult exam Expected: 06/09/2023, Expires: 12/06/2023 [facility] Work Phone: Comment on above: Expected: 06/09/2023 , Expires: 12/06/2023 Start: 06-09-2023 End: 12-06-2023 Comprehensive metabolic 2000 panel - Serum or Plasma COMP METABOLIC PANEL Lab Routine Well adult exam Expected: 06/09/2023, Expires: 12/06/2023 [facility] Work Phone: Comment on above: Expected: 06/09/2023 , Expires: 12/06/2023 Start: 06-09-2023 End: 12-06-2023 Lipid 1996 panel - Serum or Plasma LIPID PANEL BASIC Lab Routine Well adult exam Expected: 06/09/2023, Expires: 12/06/2023 [facility] Work Phone: Comment on above: Expected: 06/09/2023 , Expires: 12/06/2023 Start: 04-01-2023 Covid-19 Vaccine () Covid-19 Vaccine () [facility] Start: 04-01-2023 Influenza vaccination Influenza Vacc ine (#1) [facility] Start: 01-28-2023 Influenza vaccination INFLUENZA (#1) [facility] Comment on above: Postponed from 04/01 (Declined at this time) Start: 08-27-2022 End: 02-23-2023 CBC W Auto Differential panel - Blood CBC + DIFF Lab Routine Acute abdominal pain in right lower quadrant Right upper quadrant abdominal pain Expected: 08/27/2022, Expires: 02/23/2023 [facility] Work Phone: Comment on above: Expected: 08/27/2022 , Expires: 02/23/2023 Start: 08-27-2022 End: 02-23-2023 Comprehensive metabolic 2000 panel - Serum or Plasma COMP METABOLIC PANEL Lab Routine Acute abdominal pain in right lower quadrant Right upper quadrant abdominal pain Expected: 08/27/2022, Expires: 02/23/2023 [facility] Work Phone: Comment on above: Expected: 08/27/2022 , Expires: 02/23/2023 Start: 08-27-2022 End: 02-23-2023 Hemoglobin A1c in Blood HGB A1C Lab Routine Expected: 08/27/2022, Expires: 02/23/2023 [facility] Work Phone: Comment on above: Expected: 08/27/2022 , Expires: 02/23/2023 Start: 08-27-2022 End: 02-23-2023 Hepatitis C virus Ab [Presence] in Serum HEP C AB IA W/CONF SCRN Lab Routine Expected: 08/27/2022, Expires: 02/23/2023 [facility] Work Phone: Comment on above: Expected: 08/27/2022 , Expires: 02/23/2023 Start: 08-27-2022 End: 10-27-2022 HIV 1+2 Ab [Presence] in Serum or Plasma by Immunoassay HIV 1 2 COMBO(AG/AB),WITH REFLEX TO DIFFERENTIATION Lab Routine Expected: 08/27/2022, Expires: 10/27/2022 [facility] Work Phone: Comment on above: Expected: 08/27/2022 , Expires: 10/27/2022 Start: 08-27-2022 End: 02-23-2023 Thyrotropin [Units/volume] in Serum or Plasma TSH BLD Lab Routine Expected: 08/27/2022, Expires: 02/23/2023 [facility] Work Phone: Comment on above: Expected: 08/27/2022 , Expires: 02/23/2023 Start: 08-27-2022 End: 02-23-2023 Thyroxine (T4) free [Mass/volume] in Serum or Plasma T4 FREE/FREE THYROX Lab Routine Expected: 08/27/2022, Expires: 02/23/2023 [facility] Work Phone: Comment on above: Expected: 08/27/2022 , Expires: 02/23/2023 Start: 08-27-2022 US ABDOMEN COMPLETE US ABDOMEN COMPLETE Radiology Routine Acute abdominal pain in right lower quadrant Right upper quadrant abdominal pain Expected: 08/27/2022 [facility] Work Phone: Comment on above: Expected: 08/27/2022 Start: 08-01-2022 DEPRESSION ASSESSMENT DEPRESSION ASS ESSMENT [facility] Start: 06-16-2022 End: 08-16-2022 CBC W Auto Differential panel - Blood CBC + DIFF Lab Routine Wellness examination Expected: 06/16/2022, Expires: 08/16/2022 [facility] Work Phone: Comment on above: Expected: 06/16/2022 , Expires: 08/16/2022 Start: 06-16-2022 End: 08-16-2022 Comprehensive metabolic 2000 panel - Serum or Plasma COMP METABOLIC PANEL Lab Routine Benign essential hypertension Expected: 06/16/2022, Expires: 08/16/2022 [facility] Work Phone: Comment on above: Expected: 06/16/2022 , Expires: 08/16/2022 Start: 06-16-2022 End: 08-16-2022 Hemoglobin A1c in Blood HGB A1C Lab Routine Screening for diabetes mellitus Expected: 06/16/2022, Expires: 08/16/2022 [facility] Work Phone: Comment on above: Expected: 06/16/2022 , Expires: 08/16/2022 Start: 06-16-2022 End: 08-16-2022 Hepatitis C virus Ab [Presence] in Serum HEP C AB IA W/CONF SCRN Lab Routine Special screening examination for viral disease Expected: 06/16/2022, Expires: 08/16/2022 [facility] Work Phone: Comment on above: Expected: 06/16/2022 , Expires: 08/16/2022 Start: 06-16-2022 End: 08-16-2022 HIV 1+2 Ab [Presence] in Serum or Plasma by Immunoassay HIV 1 2 COMBO(AG/AB),WITH REFLEX TO DIFFERENTIATION Lab Routine Screening for HIV (human immunodeficiency virus) Expected: 06/16/2022, Expires: 08/16/2022 [facility] Work Phone: Comment on above: Expected: 06/16/2022 , Expires: 08/16/2022 Start: 06-16-2022 End: 08-16-2022 Lipid 1996 panel - Serum or Plasma LIPID PANEL BASIC Lab Routine Benign essential hypertension Expected: 06/16/2022, Expires: 08/16/2022 [facility] Work Phone: Comment on above: Expected: 06/16/2022 , Expires: 08/16/2022 Start: 06-16-2022 End: 08-16-2022 Thyrotropin [Units/volume] in Serum or Plasma TSH BLD Lab Routine Abnormal weight gain Expected: 06/16/2022, Expires: 08/16/2022 [facility] Work Phone: Comment on above: Expected: 06/16/2022 , Expires: 08/16/2022 Start: 06-16-2022 End: 08-16-2022 Thyroxine (T4) free [Mass/volume] in Serum or Plasma T4 FREE/FREE THYROX Lab Routine Abnormal weight gain Expected: 06/16/2022, Expires: 08/16/2022 [facility] Work Phone: Comment on above: Expected: 06/16/2022 , Expires: 08/16/2022 Start: 10-17-2020 COVID-19 VACCINE (3 - Booster for Moderna series) COVID-19 VACCINE (3 - Booster for Moderna series) [facility] Start: 10-17-2020 Covid-19 Vaccine (3 - Moderna series) Covid-19 Vaccine (3 - Moderna series) [facility] Start: 11-08-2013 Anxiety Screening Anxiety Screening [facility] Start: 11-08-2013 BP CONTROLLED (<130/80) BP CONTROLLE D (<130/80) [facility] Start: 11-08-2013 [facility]: 11-08-2013 HEPATITIS C SCREENING HEPATITIS C [facility] Start: 11-08-2013 Hepatitis C screening Hepatitis C [facility] Start: 11-08-2013 HIV SCREENING HIV SCREENING [facility] Start: 11-08-2013 HIV screening HIV Screening [facility] Start: 11-08-2009 PEDS TO ADULT TRANSI TION ANNUAL ASSESSMENT PEDS TO ADULT TRANSITION ANNUAL ASSESSMENT [facility] Start: 2007 PEDS TO ADULT TRANSI TION INITIAL DISCUSSION PEDS TO ADULT TRANSITION INITIAL DISCUSSION [facility] Bacteria identified in Urine by Culture URINE CULTURE Microbiology Routine Pyuria 06/09/2023 11:44 AM EST [facility] Work Phone: Patient Education ED Gastritis ( Adult) ED Gastroenteritis, Noninfectious [facility] Work Phone: Patient referral [facility] Work Phone: End: 07-08-2024 Radiologic exam abdomen 3+ views XR ABDOMEN 3V KUB W/OBLIQUES Radiology Routine Right flank pain 1 Occurrences starting 06/09/2023 until 07/08/2024 [facility] Work Phone: Comment on above: 1 Occurrences starti ng 06/09/2023 until 07/08/2024 End: 03-21-2026 XR Knee - right 4 Views XR KNEE GENERAL 4V AP BOTH/PA BOTH/LAT/MERC RIGHT Radiology Routine Chronic pain of right knee 1 Occurrences starting 09/19/2024 until 10/19/2025 [facility] Comment on above: 1 Occurrences starti ng 09/19/2024 until 10/19/2025 [facility] Immunizations Immunization Date Immunization Notes Care Provider Tom more 06-07-2024 influenza, seasonal, injectable, preservative free Laurie Noling COMMERCIAL LOAN OFFICER.[employer] Work Phone: [facility] 06-06-2023 influenza, injectabl e, quadrivalent, preservative free Laurie Noling COMMERCIAL LOAN OFFICER.[employer] Work Phone: [facility] 06-06-2023 influenza virus vacc ine, unspecified formulation [facility] Provider [facility] 06-17-2022 influenza, injectabl e, quadrivalent, preservative free [facility] 06-17-2022 influenza, seasonal, injectable Laurie Noling COMMERCIAL LOAN OFFICER.[employer] Work Phone: [facility] Work Phone: 06-17-2022 influenza virus vacc ine, unspecified formulation Laurie Noling COMMERCIAL LOAN OFFICER.[employer] Work Phone: [facility] 05-06-2021 influenza, injectabl e, quadrivalent, preservative free [facility] 05-06-2021 influenza, seasonal, injectable Dr. Bruce Gastelum Work Phone: [facility] 05-06-2021 influenza, seasonal, injectable, preservative free Laurie Noling COMMERCIAL LOAN OFFICER.[employer] Work Phone: [facility] Work Phone: 08-26-2020 Covid (Moderna) Dr. Sheree Gastelum Work Phone: [facility] 08-22-2020 COVID-19 original vaccine, full dose, monovalent (MODERNA) Laurie Noling COMMERCIAL LOAN OFFICER.[employer] Work Phone: [facility] Work Phone: 07-29-2020 Covid (Moderna) Dr. Sheree Gastelum Work Phone: [facility] 07-28-2020 COVID-19 original vaccine, full dose, monovalent (MODERNA) Laurie Noling COMMERCIAL LOAN OFFICER.[facility] Work Phone: [facility] Work Phone: 05-19-2020 influenza, injectabl e, quadrivalent, preservative free [facility] 05-19-2020 influenza, seasonal, injectable Laurie Noling COMMERCIAL LOAN OFFICER.[facility] Work Phone: [facility] Work Phone: 07-11-2019 hepatitis B vaccine, adult dosage Laurie Noling COMMERCIAL LOAN OFFICER.[facility] Work Phone: [facility] Work Phone: 06-04-2019 influenza, injectabl e, quadrivalent, preservative free [facility] 06-04-2019 influenza, seasonal, injectable Laurie Noling COMMERCIAL LOAN OFFICER.[facility] Work Phone: [facility] Work Phone: 02-07-2019 hepatitis B vaccine, adult dosage Laurie Noling COMMERCIAL LOAN OFFICER.[facility] Work Phone: [facility] Work Phone: 01-08-2019 hepatitis B vaccine, adult dosage Laurie Noling COMMERCIAL LOAN OFFICER.[facility] Work Phone: [facility] Work Phone: 10-21-2016 tetanus toxoid, redu aniket diphtheria toxoid, and acellular pertussis vaccine, adsorbed Laurie Noling COMMERCIAL LOAN OFFICER.[facility] Work Phone: [facility] Work Phone: 06-07-2016 influenza, injectabl e, quadrivalent, preservative free Laurie Noling COMMERCIAL LOAN OFFICER.[employer] Work Phone: [facility] Work Phone: 05-05-2016 influenza, high dose seasonal, preservative-free Laurie Noling COMMERCIAL LOAN OFFICER.[employer] Work Phone: [facility] Work Phone: 03-02-2011 human papilloma viru s vaccine, quadrivalent Laurie Noling COMMERCIAL LOAN OFFICER.[facility] Work Phone: [facility] Work Phone: 10-28-2010 human papilloma viru s vaccine, quadrivalent Laurie Noling COMMERCIAL LOAN OFFICER.[facility] Work Phone: [facility] Work Phone: 07-27-2010 human papilloma viru s vaccine, quadrivalent Laurie Noling COMMERCIAL LOAN OFFICER.[facility] Work Phone: [facility] Work Phone: 01-31-2007 meningococcal polysaccharide (groups A, C, Y and W-135) diphtheria toxoid conjugate vaccine (MCV4P) Laurie Noling COMMERCIAL LOAN OFFICER.[facility] Work Phone: [facility] Work Phone: 01-31-2007 tetanus toxoid, redu aniket diphtheria toxoid, and acellular pertussis vaccine, adsorbed Laurie Noling COMMERCIAL LOAN OFFICER.[facility] Work Phone: [facility] Work Phone: 01-31-2007 varicella virus vaccine Trac y Noling COMMERCIAL LOAN OFFICER.[facility] Work Phone: [facility] Work Phone: 11-25-2000 diphtheria, tetanus toxoids and acellular pertussis vaccine, unspecified formulation Laurie Noling COMMERCIAL LOAN OFFICER.[facility] Work Phone: [facility] Work Phone: 11-25-2000 measles, mumps and rubella virus vaccine Laurie Noling COMMERCIAL LOAN OFFICER.[facility] Work Phone: [facility] Work Phone: 11-25-2000 poliovirus vaccine, inactivated Laurie Noling COMMERCIAL LOAN OFFICER.[facility] Work Phone: [facility] Work Phone: 05-10-1997 varicella virus vaccine Trac y Noling COMMERCIAL LOAN OFFICER.[facility] Work Phone: [facility] Work Phone: 02-08-1997 diphtheria, tetanus toxoids and pertussis vaccine Laurie Noling COMMERCIAL LOAN OFFICER.[facility] Work Phone: [facility] Work Phone: 02-08-1997 haemophilus influenz ae type b vaccine, PRP-T conjugate Laurie Noling COMMERCIAL LOAN OFFICER.[facility] Work Phone: [facility] Work Phone: 11-16-1996 measles, mumps and rubella virus vaccine Laurie Noling COMMERCIAL LOAN OFFICER.[facility] Work Phone: [facility] Work Phone: 11-16-1996 poliovirus vaccine, inactivated Laurie Noling COMMERCIAL LOAN OFFICER.[facility] Work Phone: [facility] Work Phone: 08-29-1996 hepatitis B vaccine, pediatric or pediatric/adolescent dosage Laurie Noling COMMERCIAL LOAN OFFICER.[facility] Work Phone: [facility] Work Phone: 05-10-1996 diphtheria, tetanus toxoids and pertussis vaccine Laurie Noling COMMERCIAL LOAN OFFICER.[facility] Work Phone: [facility] Work Phone: 05-10-1996 haemophilus influenz ae type b vaccine, PRP-T conjugate Laurie Noling COMMERCIAL LOAN OFFICER.[facility] Work Phone: [facility] Work Phone: 03-14-1996 diphtheria, tetanus toxoids and pertussis vaccine Laurie Noling COMMERCIAL LOAN OFFICER.[facility] Work Phone: [facility] Work Phone: 01-09-1996 diphtheria, tetanus toxoids and pertussis vaccine Laurie Noling COMMERCIAL LOAN OFFICER.[facility] Work Phone: [facility] Work Phone: 01-09-1996 haemophilus influenz ae type b vaccine, PRP-T conjugate Laurie Noling COMMERCIAL LOAN OFFICER.[facility] Work Phone: [facility] Work Phone: 01-09-1996 poliovirus vaccine, inactivated Laurie Noling COMMERCIAL LOAN OFFICER.[employer] Work Phone: [facility] Work Phone: 1995 hepatitis B vaccine, pediatric or pediatric/adolescent dosage Laurie Noling COMMERCIAL LOAN OFFICER.[employer] Work Phone: [facility] Work Phone: 1995 hepatitis B vaccine, pediatric or pediatric/adolescent dosage Laurie Noling COMMERCIAL LOAN OFFICER.[employer] Work Phone: [facility] Work Phone: Payers Date Payer Category Payer Self-pay [id number] 2022 Private Health Insurance [id number] 2022 Unknown [id number] 2021 Unknown MMO MMO TPA [id number] 2021-Present [address] [place] [address] PPO [id number] 2017 Unknown [id number] Unknown [id number] 3 Unknown [id number] Unknown [id number] 3 Unknown [id number] 3 Unknown [id number] 3 Unknown [id number] 3 Unknown [id number] 3 Unknown [facility] DO NOT USE 22 [id number] Unknown [id number] 2 Unknown [id number] 2 Unknown [id number] 2 Unknown [id number] 2 Unknown [id number] 2 Unknown [id number] 2 Unknown [id number] 2 Unknown [id number] 2 Unknown [id number] 2 Social History Date Type Detail Facility Start: 06-16-2022 End: 10-08-2024 Tobacco smoking status NHIS Never smoked tobacco [facility] Start: 06-16-2022 Tobacco use and exposure Smokeless tobacco non-user [facility] Start: 06-16-2022 End: 09-19-2024 Alcohol intake Lifetime non-drinker (finding) [facility] Start: 06-16-2022 History SDOH Food Worry 1 [facility] Start: 06-16-2022 History SDOH Housing Unable to Pay 2 [facility] Start: 1995 Sex Assigned At Not on file [facility] Start: 06-06-2022 End: 06-16-2022 Exposure to SARS-CoV-2 (event) Not sure [facility] Start: 09-12-2022 End: 12-22-2022 Tobacco smoking status NHIS Unknown if ever smoked [facility] Start: 1995 Sex Assigned At Male [facility] Start: 08-27-2022 End: 06-09-2023 History of Social function [facility] Work Phone: Start: 08-27-2022 End: 06-09-2023 Tobacco use panel [facility] Work Phone: Adult Depression Screening Assessment 0 [facility] Work Phone: (I/We) worried denia er (my/our) food would run out before (I/we) got money to buy more. Never true [facility] In the past 12 month s, was there a time when you were not able to pay the mortgage or rent on time? No [facility] Are you now , , , , never or living with a partner? Living with partner [facility] How often to you hav e a drink containing alcohol? Monthly or less [facility] How many standard drinks containing alcohol do you have on a typical day? 1 or 2 [facility] How often do you hav e 6 or more drinks on 1 occasion? Never [facility] Do you feel stress - tense, restless, nervous, or anxious, or unable to sleep at night because your mind is troubled all the time - these days [OSQ] Not at all [facility] Start: 09-19-2024 Education 16 [facility] Start: 10-11-2024 Sex Male (finding) [facility] Medical Equipment Procedure Code Equipment Code Equipment Origin al Text Equipment Identifier Dates Appendectomy, laparoscopic Surgical staple loading unit, non-cutting ([id number] [facility] Start: 08-14-2024 Goals Date Patient Goal Desired Activity /State Mental Status Date Assessment Result Facility 10-11-2024 Cognitive function Voice/Name;Richard/Fritz alarcon [facility] Work Phone: 08-14-2024 Cognitive function Voice/Name [facility] Work Phone: Clinical Notes 06-16-2022 to 10-11-2024 Patient InstructionsLaurie Coronado APRN.CNP - 09/19/2024 8:27 AM ESTTelephone Encounter - Laurie Coronado APRN.CNP - 06/22/2024 1:12 PM EST Note Date & Type Note Facility 10-11-2024 Consult note [facility] 10-11-2024 Procedure note [facility] 10-11-2024 Procedure note [facility] 10-11-2024 History and physi scott note [facility] 10-11-2024 Note [facility] Medical Records Department [address] [place] [address] History Physical Exam 10/11/24 1104 MR#: [id number] Acct: [id number] Name: BLACK CHAVEZER Rep #: [id number] : 1995 28 From: Codey Delvalle MD PCP: DAVID HOBBS Status:[facility] Location: [place] [address] History and Physical Date of Admission: 10/11/24 Date of Service: 08/22/24 MR#: [id number] Acct: [id number] Name: BLACK CHAVEZER Rep #: [id number] : 1995 Provider: KLEBER Dozier Age/Sex: 28/M Location: [facility] Status: Signed Intake Vital Signs 08/14/2505:40 08/22/2512:20 Height 5 ft 11 in BP 151/74 H Blood Pressure Location Rt brachial Position Sitting Respiration 17 Pulse 97 Pulse Source Monitor Pulse Oximetry (%) 97 Oxygen Delivery Method room air Intake Visit Reasons: APPY 08-14 Chief Complaint: appy 08/14, colonoscopy Is patient in pain?: No Allergies hydromorphone (From Dilaudid) Allergy (Severe, Verified 08/22/24 13:21) Unknownpollen extracts Allergy (Severe, Verified 08/22/24 13:21) Unknown Medications ???Medication ???Instructions ???Recorded ???Confirmed ???Type rizatriptan 10 mg tablet (Maxalt) 10 mg PO ONCE PRN migraines 08/14/19 08/22/24 History acetaminophen 500 mg tablet 500 mg PO Q4H PRN PRN Pain Score 01/16/21 08/22/24 Rx 1-5/10 #0 tabs ibuprofen 200 mg tablet 400 mg (2 x 200 mg) PO Q6H PRN PRN 01/16/21 08/22/24 Rx Pain Score 4-10/10 #0 tabs carvedilol 25 mg tablet 25 mg PO BID #60 tabs 12/20/23 08/22/24 Rx amlodipine 10 mg tablet 10 mg PO DAILY #90 tabs 02/10/24 08/22/24 Rx lisinopril 10 mg tablet 10 mg PO DAILY #90 tabs 06/22/24 08/22/24 Rx PFSH Medical History (Updated 08/22/24 @ 13:20 by Niru Eisenberg) Wears contact lenses Alcohol use History of kidney stones Non-smoker Sleep apnea Cardiology follow-up encounter Hypersomnolence Essential hypertension Palpitations Seasonal allergies Migraines Surgical History (Updated 08/22/24 @ 12:53 by Niru Eisenberg) Status post laparoscopic appendectomy Hx of nasal septoplasty History of tonsillectomy ( 2015) Family History Sister HypertensionBrother HypertensionMother Hypertension Heart diseaseFather Hypertension Social History Smoking Status: Never smoker alcohol intake: current alcohol intake frequency: a few times a month substance use type: does not use caffeine: Yes Type: coffee Number of servings: 1 HPI HPI Surgical H P: Yes HPI: Patient is a 28 y/o M I am following s/p laparoscopic appendectomy by Dr. Delvalle on 08/14/24. Patient tolerated the procedure well. Patient denies any right lower quadrant pain. He notes he had pain in the right lower quadrant intermittently for 3 years. He was always told this was kidney stone related. He notes since the procedure, he feels significantly improved. He denies any nausea, vomiting, fever. He notes appetite and bowel habits have returned to normal. Pathology demonstrated acute periappendicitis. No atypical cells or cancer cells. However, this pathology is more concerning for an inflammatory process suspicious for inflammatory bowel. He denies any bowel habits changes recently. He does note multiple bowel movements daily with lots of flatus production. He denies any rectal bleeding or melena. He notes his brother was worked up for bowel disease, which all returned as negative. he notes his sister was recently diagnosed with celiac disease. He states when he consumes beer, bread or other gluten-containing products, he notes an increase in bowel function to more loose stools. He denies any family history of colon cancer or inflammatory bowel disease. He denies any previous colonoscopy. He denies being on any blood thinners or weight loss medication. ROS General General: No weight change, appetite, fatigue, colon cancer, breast cancer or weakness HEENT HEENT: No difficulty swallowing, eye injury, eye surgery, swollen glands or hoarseness Endo Endocrine: No thyroid disease, diabetes mellitus, thyroid cancer, Hair loss, heat intolerance or cold intolerance Skin Skin: No rash or changing moles Musc Musculoskeletal: No back problems, arthritis, rheumatoid arthritis, gout or joint pain Cardio Cardiovascular: Yes high blood pressure; No murmur, pacemaker, heart disease, atrial fibrillation, heart attack, heart stent, palpitations, shortness of breat with exertion or chest pain Psych Psychiatric: No depression, anxiety or hearing voices Resp Respiratory: No shortness of breath, No slee (more content not included)... [facility] 10-11-2024 Consult note [facility] 09-19-2024 Instructions Laurie Coronado APRN.CNP - 09/19/2024 9:02 AM EST Have fasting labs drawn X-ray ordered Referral to physical therapy documented in this encounter [facility] 09-19-2024 Note HNO ID: [id number] Author: LAURIE CORONADO APRN.CNP Service: ? Author Type: Nurse Practitioner Type: Progress Notes Filed: 09/19/2024 09:24 Note Text: Black Chavez is a 28 year old male who presents with Knee Pain (Black is here today to discuss his knee pain. Has been slowly getting worse over the last few years and has gotten to where he would rather not keep just bearing it. Mostly around the patella of the right knee.//Rosales Loomis MA/September 19, 2024 8:06 AM//) Black presents today with c/o chronic R knee pain. States pain started years ago, but has been getting worse. Pain is worst with climbing stairs. Feels mostly on the lateral side of the patella. No prior imaging. Denies any swelling. Will be having colonoscopy next month to f/u on eileen-appendicitis found last month. S/p appendectomy. CT done in ER also noted to show BL renal calculi (approx. 2-3 mm) and hepatic steatosis. The history is provided by the patient. Right knee injury: No Right knee condition: Chronic Right knee severity: Moderate Right knee progression: Worsening Patient reports that right knee feels unstable. Patient reports feeling right knee popping. Right knee aggravating factors: Change in inclines. Right knee alleviating factors: None. No results found for: CBCAU, CMPNOTE, LIPIDNOTE, HBA1C, TSH, UALBR, VITD PAST MEDICAL HISTORY Diagnosis Date COVID Essential hypertension Food poisoning 09/13/2022 Kidney stone Migraine headache Periappendicitis Seasonal allergies ACTIVE PROBLEM LIST Benign Essential Hypertension Class 2 severe obesity with serious comorbidity and body mass index (BMI) of 37.0 to 37.9 in adult Eczema of Hand Elevation of Level of Transaminase and Lactic Acid Dehydrogenase (Ldh) Well Adult Exam Hemorrhoids, Internal Migraine Headaches Palpitations Renal Calculus Seasonal Allergic Rhinitis Multiple Nevi Diarrhea Obstructive Sleep Apnea Syndrome Inflammation of Stomach and Intestine Increased Nausea and Vomiting Hypersomnia Deviated Nasal Septum Current Outpatient Medications Medication Sig Dispense Refill carvedilol (COREG) 25 mg tablet Take 25 mg by mouth two times a day with meals. lisinopril (ZESTRIL) 10 mg tablet TAKE 1 TABLET BY MOUTH ONCE DAILY 90 tablet 0 rizatriptan (MAXALT FELLER SEAM OPERATOR) 10 mg disintegrating tablet TAKE 1 TABLET BY MOUTH ONCE DAILY NEEDED FOR MIGRAINE 9 tablet 0 amLODIPine (NORVASC) 10 mg tablet Take 1 tablet by mouth once daily. ketoconazole (NIZORAL) 2 % cream (Patient not taking: Reported on 09/19/2024) No current facility-administered medications for this visit. Social History Tobacco Use Smoking status: Never Smokeless tobacco: Never Vaping Use Vaping status: Never Used Substance Use Topics Alcohol use: Never Drug use: Never FAMILY HISTORY Problem Relation Age of Onset Alcohol/Drug Father Hypertension Father Review of Systems All other systems reviewed and are negative. BP 124/84 Pulse 70 Temp (Src) 97.7 (Temporal) Resp 18 Ht 5' 10.472 (1.79m) Wt 274 lb (124.3kg) SpO2 96% BMI 38.79 kg/(m2). Physical Exam Vitals and nursing note reviewed. Constitutional: Appearance: Normal appearance. He is obese. Comments: Weight up 9# from last OV. HENT: Head: Normocephalic and atraumatic. Ears: Comments: Grossly normal hearing Eyes: Pupils: Pupils are equal, round, and reactive to light. Cardiovascular: Rate and Rhythm: Normal rate and regular rhythm. Pulses: Normal pulses. Heart sounds: Normal heart sounds. No murmur heard. Pulmonary: Effort: Pulmonary effort is normal. Breath sounds: Normal breath sounds. Musculoskeletal: General: No swelling. Cervical back: Neck supple. Right knee: Normal. No swelling, deformity, effusion, erythema or crepitus. Normal range of motion. No tenderness. Instability Tests: Anterior drawer test negative. Posterior drawer test negative. Skin: General: Skin is warm and dry. Capillary Refill: Capillary refill takes less than 2 seconds. Findings: No lesion or rash. Neurological: General: No focal deficit present. Mental Status: He is alert and oriented to person, place, and time. Psychiatric: Mood and Affect: Mood normal. Behavior: Behavior normal. Medications were reviewed and verified. 06/09/2023 09/19/2024 INTAKE PAIN ASSESSMENT Are you having pain associated with your visit today? Yes, Provider notified Yes, Provider notified Pain Scales Verbal (Numeric Rating or Visual Analog Scale) Verbal (Numeric Rating or Visual Analog Scale) Pain Level 2 1 Pain Location Abdomen Knee-Right Description Sharp;Stabbing Duration Amount of Time 4 Duration Units Years Frequency Intermittent Intervention/Comfort measure Reposition If pain assessment is 0, no action needed. If pain assessment is positive, please see assessment and plain. Assessment AND Plan ASSESSMENT/PLAN: 1. Chronic pain of ri (more content not included)... [facility] 09-19-2024 History of Presen t illness Narrative Black Chavez is a 28 year old male who presents with Knee Pain (Black is here today to discuss his knee pain. Has been slowly getting worse over the last few years and has gotten to where he would rather not keep just bearing it. Mostly around the patella of the right knee.//Rosales Loomis MA/September 19, 2024 8:06 AM//) Black presents today with c/o chronic R knee pain. States pain started years ago, but has been getting worse. Pain is worst with climbing stairs. Feels mostly on the lateral side of the patella. No prior imaging. Denies any swelling. Will be having colonoscopy next month to f/u on eileen-appendicitis found last month. S/p appendectomy. CT done in ER also noted to show BL renal calculi (approx. 2-3 mm) and hepatic steatosis. The history is provided by the patient. Right knee injury: No Right knee condition: Chronic Right knee severity: Moderate Right knee progression: Worsening Patient reports that right knee feels unstable. Patient reports feeling right knee popping. Right knee aggravating factors: Change in inclines. Right knee alleviating factors: None. No results found for: CBCAU, CMPNOTE, LIPIDNOTE, HBA1C, TSH, UALBR, VITD PAST MEDICAL HISTORY Diagnosis Date COVID Essential hypertension Food poisoning 09/13/2022 Kidney stone Migraine headache Periappendicitis Seasonal allergies ACTIVE PROBLEM LIST Benign Essential Hypertension Class 2 severe obesity with serious comorbidity and body mass index (BMI) of 37.0 to 37.9 in adult Eczema of Hand Elevation of Level of Transaminase and Lactic Acid Dehydrogenase (Ldh) Well Adult Exam Hemorrhoids, Internal Migraine Headaches Palpitations Renal Calculus Seasonal Allergic Rhinitis Multiple Nevi Diarrhea Obstructive Sleep Apnea Syndrome Inflammation of Stomach and Intestine Increased Nausea and Vomiting Hypersomnia Deviated Nasal Septum Current Outpatient Medications Medication Sig Dispense Refill carvedilol (COREG) 25 mg tablet Take 25 mg by mouth two times a day with meals. lisinopril (ZESTRIL) 10 mg tablet TAKE 1 TABLET BY MOUTH ONCE DAILY 90 tablet 0 rizatriptan (MAXALT FELLER SEAM OPERATOR) 10 mg disintegrating tablet TAKE 1 TABLET BY MOUTH ONCE DAILY NEEDED FOR MIGRAINE 9 tablet 0 amLODIPine (NORVASC) 10 mg tablet Take 1 tablet by mouth once daily. ketoconazole (NIZORAL) 2 % cream (Patient not taking: Reported on 09/19/2024) No current facility-administered medications for this visit. Social History Tobacco Use Smoking status: Never Smokeless tobacco: Never Vaping Use Vaping status: Never Used Substance Use Topics Alcohol use: Never Drug use: Never FAMILY HISTORY Problem Relation Age of Onset Alcohol/Drug Father Hypertension Father Review of Systems All other systems reviewed and are negative. BP 124/84 Pulse 70 Temp (Src) 97.7 (Temporal) Resp 18 Ht 5' 10.472 (1.79m) Wt 274 lb (124.3kg) SpO2 96% BMI 38.79 kg/(m^2). Physical Exam Vitals and nursing note reviewed. Constitutional: Appearance: Normal appearance. He is obese. Comments: Weight up 9# from last OV. HENT: Head: Normocephalic and atraumatic. Ears: Comments: Grossly normal hearing Eyes: Pupils: Pupils are equal, round, and reactive to light. Cardiovascular: Rate and Rhythm: Normal rate and regular rhythm. Pulses: Normal pulses. Heart sounds: Normal heart sounds. No murmur heard. Pulmonary: Effort: Pulmonary effort is normal. Breath sounds: Normal breath sounds. Musculoskeletal: General: No swelling. Cervical back: Neck supple. Right knee: Normal. No swelling, deformity, effusion, erythema or crepitus. Normal range of motion. No tenderness. Instability Tests: Anterior drawer test negative. Posterior drawer test negative. Skin: General: Skin is warm and dry. Capillary Refill: Capillary refill takes less than 2 seconds. Findings: No lesion or rash. Neurological: General: No focal deficit present. Mental Status: He is alert and oriented to person, place, and time. Psychiatric: Mood and Affect: Mood normal. Behavior: Behavior normal. Medications were reviewed and verified. 06/09/2023 09/19/2024 INTAKE PAIN ASSESSMENT Are you having pain associated with your visit today? Yes, Provider notified Yes, Provider notified Pain Scales Verbal (Numeric Rating or Visual Analog Scale) Verbal (Numeric Rating or Visual Analog Scale) Pain Level 2 1 Pain Location Abdomen Knee-Right Description Sharp;Stabbing Duration Amount of Time 4 Duration Units Years Frequency Intermittent Intervention/Comfort measure Reposition If pain assessment is 0, no action needed. If pain assessment is positive, please see assessment and plain. Assessment & Plan ASSESSMENT/PLAN: 1. Chronic pain of right knee - ICD9: 719.46, 338.29, ICD10: M25.561, G89.29 (primary diagnosis) Check x-ray, referral to physical therapy - XR KNEE GENERAL 4V AP BOTH/PA BOTH/LAT/MERC RIGHT - CONSULT TO PHYSICAL THERAPY 2. Special screening examination for viral disease - ICD9: V73.99, ICD10: Z11.59 - HEPATITIS C ANTIBODY IA WITH CONFIRMATION 3. Screening for HIV (human immunodeficiency virus) - ICD9: V73.89, ICD10: Z11.4 - HIV 1/2 COMBO WITH REFLEX TO DIFFERENTIATION 4. Class 2 severe obesity with serious comorbidity and body mass index (BMI) of 38.0 to 38.9 in adult, unspecified obesity type (HCC) - ICD9: 278.01, V85.38, ICD10: E66.812, Z68.38, E66.01 Weight increasing - Behavioral intervention 5. Impaired fasting glucose - ICD9: 790.21, ICD10: R73.01 - HEMOGLOBIN A1C 6. Hepatic steatosis - ICD9: 571.8, ICD10: K76.0 Discussed need to cut back on carb intake, work on weight loss 7. Multiple renal calculi - ICD9: 592.0, ICD10: N20.0 1 non-obstructing 2-3 mm stone in each kidney noted on CT 08/2024. Discussed increasing water intake, low oxalate diet to reduce risk of further stone production. Laurie Coronado APRN.CNP PATIENT NAME: Black Chavez DATE: September 19, 2024 SIGNATURE: Laurie Coronado APRN.CNP documented in this encounter [facility] 08-14-2024 Note [facility] Medical Records Department [address] [place] [id number] History Physical Exam 08/14/24 0917 MR#: [id number] Acct: [id number] Name: BLACK CHAVEZ Rep #: [id number] : 1995 28 From: Thu PADILLA PA-C PCP: DAVID HOBBS Status:[facility] Location: [place] [address] HPI - General General Date of Admission: 08/14/24 Date of Service: 08/14/24 Chief Complaint: Abdominal pain HPI Narrative BLACK CHAVEZ, is a 28 M who presents with abdominal pain that started on Tuesday. Patient notes he was having difficulties with constipation over the weekend. He notes trying Miralax, Dulcolax and Milk of magnesia before producing loose stools. He states he normally has regular bowel movements 2- 3 times per day. He notes his appetite has been normal over the last several days. Patient denies any nausea, vomiting. He notes developing abdominal pain on Tuesday and when this was not going away, he came to the ED. CT scan of the ab/pel demonstrated acute appendicitis, fatty infiltration of the liver and nonobstructing renal calculi measuring 2.9 mm on the right. Patient has a history of hypertension and sees cardiology for high blood pressure and palpitations. He also has a history of sleep apnea and does not wear a CPAP machine. He is not on any blood thinners. He denies any abdominal surgeries previously. Labs demonstrate WBC 6.7, Hgb 14.1, Hct 42.2, Plt 362. Other remaining labs are unremarkable. [facility] Medical History Wears contact lenses Alcohol use History of kidney stones Non-smoker Sleep apnea Cardiology follow-up encounter Hypersomnolence Essential hypertension Palpitations Seasonal allergies Migraines Home Medications ???Medication ???Instructions ???Recorded ???Last Taken ???Type rizatriptan 10 mg tablet (Maxalt) 10 mg PO ONCE PRN migraines 08/14/19 Unknown History acetaminophen 500 mg tablet 500 mg PO Q4H PRN PRN Pain Score 01/16/21 Unknown Rx 1-5/10 #0 tabs ibuprofen 200 mg tablet 400 mg (2 x 200 mg) PO Q6H PRN PRN 01/16/21 Unknown Rx Pain Score 4-10/10 #0 tabs carvedilol 25 mg tablet 25 mg PO BID #60 tabs 12/20/23 Unknown Rx amlodipine 10 mg tablet 10 mg PO DAILY #90 tabs 02/10/24 Unknown Rx lisinopril 10 mg tablet 10 mg PO DAILY #90 tabs 06/22/24 Unknown Rx Allergy/AdvReac Type Severity Reaction Status Date / Time hydromorphone (From Dilaudid) Allergy Severe Unknown Verified 08/14/24 06:39 pollen extracts Allergy Severe Unknown Verified 08/14/24 06:39 Family History Sister Hypertension Brother Hypertension Mother Hypertension Heart disease Father Hypertension Surgical History Hx of nasal septoplasty History of tonsillectomy ( 2016) Social History Smoking Status: Never smoker alcohol intake: current alcohol intake frequency: a few times a month substance use type: does not use caffeine: Yes Type: coffee Number of servings: 1 ROS Constitutional Constitutional: Reports systems reviewed and no addt'l complaints, except as documented Eyes Eyes: Reports systems reviewed and no addt'l complaints, except as documented ENT HEENT: Reports systems reviewed and no addt'l complaints, except as documented Cardiovascular Cardiovascular: Reports systems reviewed and no addt'l complaints, except as documented Respiratory/Chest Respiratory/Chest: Reports systems reviewed and no addt'l complaints, except as documented Gastrointestinal Gastrointestinal: Reports systems reviewed and no addt'l complaints, except as documented Genitourinary Genitourinary: Reports systems reviewed and no addt'l complaints, except as documented Musculoskeletal Musculoskeletal: Reports systems reviewed and no addt'l complaints, except as documented Integumentary Integumentary: Reports systems reviewed and no addt'l complaints, except as documented Neurologic Neurologic: Reports systems reviewed and no addt'l complaints, except as documented Psychiatric Psychiatric: Reports systems reviewed and no addt'l complaints, except as documented Endocrine Endocrinology: Reports systems reviewed and no addt'l complaints, except as documented Hematologic/Lymphatic Hematologic/Lymphatic: Reports systems reviewed and no addt'l complaints, except as documented Allergic/Immunologic Allergic/Immunologic: Reports systems reviewed and no addt'l complaints, except as documented Vital Signs Vital Signs Vital Signs: 08/14/24 06:40 08/14/24 08:39 Temperature 97.8 F Temperature Source Oral Pulse Rate 80 75 Respiratory Rate 18 16 Blood Pressure 152/86 H 138/68 H Blood Pressure Mean 108 91 Pulse Ox 98 99 (more content not included)... [facility] 06-22-2024 Telephone encounter Note Needs appt. Last OV 06/2023. [facility] 06-22-2024 Miscellaneous Notes Needs appt. Last OV 06/2023. documented in this encounter [facility] 06-13-2024 Evaluation note Diagnosis Onset Date Resolution Essential hypertension chronic No 2023 10:54am Palpitations chronic June 10:54am Acute appendicitis acute 2024 9:25am Encounter for screening for malignant neoplasm of colon acute August 22 12:48pm Status post laparoscopic appendectomy acute August 22 12:48pm [facility] Work Phone: [phone]) 914-630211-14-2023 Miscellaneous Notes* Telephone Encounter - Abby Nunes MA - 06/14/2023 3:[address] Tank Bo referral has been faxed. [phone] Abby Nunes MA June 14, 2023 3:48 PM [facility] Instructions* Patient Instructions* Laurie Coronado APRN.CNP - 06/09/2023 8:54 AM EST Have fasting labs drawn KUB ordered Continue current meds Will message with results of testing and further plan of care. [facility] Nurse Note* Radha Moyer LPN - 06/09/2023 7:58 AM EST Patient is here for his annual wellness exam. Continues to have right flank pain. Radha Moeyr LPN June 09, 2023 8:12 AM documented [facility] History of Present illness Narrative* Laurie Coronado, SUGEY.METAL BURNISHER - 06/09/2023 7:57 AM EST Black Chavez is a 27 year old [...] by the patient. No results found for: CBCAU, CMPNOTE, LIPIDNOTE, HBA1C, TSH, UALBR, VITD PAST MEDICAL HISTORY Diagnosis Date COVID [...] Medications Medication Sig Dispense Refill rizatriptan (MAXALT FELLER SEAM OPERATOR) 10 mg disintegrating tablet TAKE 1 TABLET [...] send for culture. - URINE CULTURE Laurie Coronado APRN.CNP PATIENT NAME: Black Chavez DATE: June 09, 2023 SIGNATURE: Laurie Coronado APRN.CNP documented [facility] encounter[facility] Instructions* Patient Instructions* Laurie Coronado APRN.CNP - 08/27/2022 11:00 AM EST Schedule abd US Have labs drawn (non-fasting) Apply moist heat to abd 3-4x a day documented in this encounterAs[facility] History of Present illness Narrative* Laurie Coronado APRN.CNP - 08/27/2022 10:32 AM EST Images from the original note were not included. This note was created using [employer]. Subjective Black Chavez is a 26 year [...] 144/90 Pulse 76 Ht 180.3 cm (5' 11) Wt 124.7 kg (275 lb) SpO2 99% [...] METABOLIC PANEL - US ABDOMEN COMPLETE Laurie Coronado APRN.CNP documented in this encounterAs[facility]12[facility]22 Miscellaneous Notes* Telephone Encounter - Barbara Lynch MA - 07/05/2022 4:29 PM EST Referral to [facility] was sent 06/28/22. documented in this encounterAs[facility]11-[facility] Instructions* Patient Instructions* Laurie Coronado APRN.CNP - 06/16/2022 9:01 AM EST Have fasting labs drawn Continue current meds documented in this encounterAs[facility]11-[facility]22 History of Present illness Narrative* Laurie Coronado APRN.CNP - 06/16/2022 8:31 AM EST This note was created using [employer]. Subjective Black Chavez is a 26 year old male. Black presents today for AWX. He states he still has L sided flank pain off and on, if he stretchesor with touch at times. Continues to follow with fmd teacher. BP running 130s-140s/80s. Was recently increased on [...] 144/82 Pulse 91 Ht 180.3 cm (5' 11) Wt 126.1 kg (278 lb) SpO2 98% [...] skin checks - CONSULT TO DERMATOLOGY Laurie Coronado APRN.METAL BURNISHER [facility] Author Jose Stephenson [facility] Note Date/Time October 11, 2024 10: 25am [facility] Medical Records Department [address] [place] [address] Pre-Anesthesia Evaluation 10/11/24 1022 MR#: [id number] Acct: [id number] Name: BLACK CHAVEZ Rep #:[id number] : 1995 28 From: Jose Stephenson MD PCP: LAURIE CORONADO, CORRECTION OFFICER-C Status:REG SDC Y Race: C Location: [place] [address] ASA Classification* ASA Classification ASA Classification: 2 (HTN controlled on 3 meds) Assessment & Plan Anesthesia* Anesthesia Assessment Anesthesia Assessment: Discussed sedation and/or anesthesia options, risks, benefits, and alternatives with patient/parents/legal guardian/POA. Questions invited. The patient/parents/legal guardian/POA seems to understand and agrees to proceedwith anesthesia plan. Reviewed the physical assessment, medical history, allergy history and patient home medications list prior to surgery/procedure/anesthetic and documented any changes. Performed airway and anesthesia risk assessments. Anesthesia Type Anesthesia Type: General History Source History Obtained from:: Patient and Chart Anesthesia Focused Assessment* Temperature: 97.8 F Pulse Rate: 87 Blood Pressure: 145/86 Respiratory Rate: 16 Pulse Ox: 98 Oxygen Delivery Method: Room Air Airway Assessment Mouth opens: >3 cm Mallampati Score: II Teeth Condition: Intact Neck Range of motion (ROM): Full ROM Focused Labs Anesthesia Preop lab: CBC WBC 6.7 K/mm3 (4.4-11.0) 08/14/24 07:00 08/14/24 RBC 4.99 M/mm3 (4.6-6.2) 08/14/24 07:00 08/14/24 Hgb 14.1 g/dL (13.0-16.5) 08/14/24 07:00 08/14/24 Hct 42.2 % (40-54) 08/14/24 07:00 08/14/24 Plt Count 362 K/mm3 (150-450) 08/14/24 07:00 08/14/24 CHEMISTRY Potassium 3.8 mmol/L (3.5-5.1) 08/14/24 07:00 08/14/24 Sodium 139 mmol/L (136-145) 08/14/24 07:00 08/14/24 Phosphorus 3.5 mg/dL (2.5-4.9) 03/24/21 09:00 03/24/21 BUN 17 mg/dL (7-18) 08/14/24 07:00 08/14/24 Creatinine 0.94 mg/dL (0.70-1.30) 08/14/24 07:00 08/14/24 Glucose 122 mg/dL (74-106) H 08/14/24 07:00 08/14/24 TSH 1.34 uIU/mL (0.358-3.74) 08/13/19 16:31 COAG Pre-Assessment Diagnosis/Proposed Procedure Planned Operative Procedure(s): COLONOSCOPY Anesthesia History Anesthesia History - tongsman: Anesthesia History - tongsman Hx Hospitalization No: 08/2024 APPY, NO 10/08/24 14:27 OVERNIGHT STAY THOUGH Any Problems With Anesthesia No 10/08/24 14:27 Cholinesterase deficiency No 10/08/24 14:27 You/Your Family Experience No 10/08/24 14:27 fever (hyperthermia) with Relationship Recent Exposure to Contagious No 10/11/24 09:43 Disease Does patient have nerve No 10/08/24 14:27 stimulator Patient instructed to have device shut off --Does patient have Pacemaker No 10/11/24 09:43 or ICD? When Was Last Pacemaker Check QUESTION #4 FULL TEXT: You/Your Family Experience fever (hyperthermia) with Anesthesia Last Oral Intake Last Oral intake: Last Oral Intake NPO since 06:30 10/11/24 09:43 Meds taken in AM with sips of Yes 10/11/24 09:43 water? Meds patient instructed to take am of surgery PONV PONV - tongsman: PONV - tongsman Female No 10/08/24 14:27 HX of Motion Sickness Yes 10/08/24 14:27 HX of N/V After Surgery No 10/08/24 14:27 Non-Smoker Yes 10/08/24 14:27 Duration of Surgery greater No 10/08/24 14:27 than 60 minutes Number of Risk Factors 2 10/08/24 14:27 PONV Score Moderate Risk 10/08/24 14:27 Height & Weight Height & Weight: Anesthesia: Height & Weight Height 5 ft 11 in 10/11/24 09:43 Weight: 119.5 kg 10/11/24 09:43 Body Mass Index (BMI) 36.7 10/11/24 09:43 Respiratory Assessment Respiratory Assessment - tongsman: Respiratory Tract Infection Hx - tongsman Hx Respiratory Tract Infection No 10/08/24 14:27 STOP Sleep Apnea STOP Sleep Apnea - tongsman: STOP Sleep Apnea - tongsman Hx Hypertension Yes 10/08/24 14:27 Hx Sleep Apnea Yes: BORDERLINE 10/08/24 14:27 CPAP No 10/08/24 14:27 BIPAP No 10/08/24 14:27 Do you snore loudly (louder than talking or can be heard Do you often feel tired/ fatigued/ sleepy during daytime? Has anyone observed you stop breathing during sleep? STOP Results Positive 10/08/24 14:27 QUESTION #5 FULL TEXT : Do you snore loudly (louder than talking or can be heard through closed doors)? 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 Specify any problems Hx of Preganancy in last 3 N/A 10/08/24 14:27 Months Nurse Filling Out Transfusion [employer] 10/08/24 14:27 & Questions: Date: 10/08/24 10/08/24 14:27 Time: 14:33 10/08/24 14:27 Patient unable to answer at this time (ie. 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 History - tongsman: /Reproductive Hx- tongsman Hx Now Gestational Age (in weeks): EDC: Hx Hx Para Hx Section SAB PFSH Medical History History of renal disease History of echocardiogram Wears contact lenses Alcohol use History of kidney stones Non-smoker Sleep apnea Cardiology follow-up encounter Hypersomnolence Essential hypertension Palpitations Seasonal allergies Migraines Home Medications ?Medication ?Instructions ?Recorded ?Last Taken ?Type rizatriptan 10 mg tablet (Maxalt) 10 mg PO ONCE PRN mi graines 08/14/19 Unknown History acetaminophen 500 mg tablet 500 mg PO Q4H PRN PRN Pain Score 01/16/21 Unknown Rx 1-510 #0 tabs ibuprofen 200 mg tablet 400 mg (2 x 200 mg) PO Q6H P RN PRN 01/16/21 Unknown Rx Pain Score 4-10/10 #0 tabs carvedilol 25 mg tablet 25 mg PO BID #60 tabs 10/11/24 06:30 Rx amlodipine 10 mg tablet 10 mg PO DAILY #90 tabs 0709/2410/11/24 06:30 Rx lisinopril 10 mg tablet 10 mg PO DAILY #90 tabs 06/0208/14/24 Rx Allergy/AdvReac Type Severity Reaction Status Date / Time hydromorphone (From Dilaudid) Allergy Severe Unknown Verified 10/11/24 09:42 pollen extracts Allergy Severe Unknown Verified 10/11/24 09:42 Family History Sister Hypertension Brother Hypertension Mother Hypertension Heart disease Father Hypertension Surgical History Status post laparoscopic appendectomy Hx of nasal septoplasty History of tonsillectomy (~2015) Social History Smoking Status: Never smoker alcohol intake: current alcohol intake frequency: a few times a month substance use type: does not use caffeine: Yes Type: coffee Number of servings: 1 Prior Cardiac Testing/Procedures Prior Cardiac Testing/Procedures: Echocardiogram (Reason For Study: Palps, HTN Procedure This was a 2D Doppler, Color Flow transthoracic echocardiogram. Exam performed in department. Left Ventricle Normal LV size. The estimated ejection fraction is 70 %. No evidence for diastolic dysfunction. No regional wall motionabnormalities noted. Right Ve) Addt'l Information Additional Findings: ECG Report Interpretation Sinus Rhythm -Right axis -may be normal for age Review of Systems (Anesthesia) ROS Narrative System reviewed and no additional complaints, except as documented. Physical Exam Const alert, oriented x3 and average body habitus Resp normal respiratory effort, normal air movement and clear to auscultation bilaterally Cardio regular rate, regular rhythm, no murmurs and diaphoretic 10/11/24 1025 <Electronically signed by Jose Stephensno MD> Date _ Jose Stephenson MD Cosigner Signature: Date CC: ~ Signed [facility] Work Phone: Consult note Author AA Blayne Alves [facility] Note Date/Time October 11, 2024 11: 51am [facility] Medical Records Department [address] [place] [address] Anesthesia Postop Eval I 10/11/24 1150 MR#: [id number] Acct: [id number] Name: BLACK CHAVEZ Rep #:[id number] : 1995 28 From: Blayne Alves PCP: DAVID HOBBS Status:REG SDC Y Race: C Location: [place] [address] Anesthesia: Postop Eval I Current Vital Signs Temperature: 97 F Pulse Rate: 80 Blood Pressure: 107/58 Respiratory Rate: 16 Pulse Ox: 97 Oxygen Delivery Method: Room Air Assessment Airway patent: Yes Spontaneous unlabored respirations: Yes Mental status: Awake nausea: No Vomiting: No Anesthesia Complication: No Fluid Hydration Crystalloid volume administer (ml): 80 Total IV fluid infused: 80 Progress Note Anesthesia document: Postop Eval 1 completed: Yes 10/11/24 1151 <Electronically signed by Blayne Alves > Date _ Blayne Mosquedaignstephen Signature: Date CC: ~ Signed [facility] Work Phone: evaluation note* Diagnosis Wellness examination- Primary Benign essential hypertension Essential hypertension, benign Migraine headaches Class 2 severe obesity with serious comorbidity and body mass index (BMI) of 38.0 to 38.9 in adult, unspecified obesity type (HCC) Screening for diabetes mellitus Abnormal weight gain Special screening examination for viral disease Special screening examination for unspecified viral disease Screening for HIV (human immunodeficiency virus) Special screening examination for other specified viral diseases Multiple nevi Benign neoplasm of skin, site unspecified [facility] Acute abdominal pain in right lower quadrant- Primary Abdominal pain, right lower quadrant Right upper quadrant abdominal pain Abdominal pain, right upper quadrant [facility] Diagnosis Onset Date Resolution Status Essential hypertension chron ic Palpitations resolved [facility] Work Phone: Evaluation note* Diagnosis Well adult exam- Primary Routine general medical examination at a health care facility Class 2 severe obesity with serious comorbidity and body mass index (BMI) of 37.0 to 37.9 in adult, unspecified obesity type Benign essential hypertension Essential hypertension, benign Right flank pain Abdominal pain, unspecified site Pyuria Other nonspecific finding on examination of urine documented in this encounter [facility] noteNo assessment information [facility]WK[facility] Work Phone: Evaluation note* Diagnosis Benign essential hypertension Essential hypertension, benign [facility] Diagnosis Chronic pain of right knee- Primary Special screening examination for viral disease Special screening examination for unspecified viral disease Screening for HIV (human immunodeficiency virus) Special screening examination for other specified viral diseases Class 2 severe obesity with serious comorbidity and body mass index (BMI) of 38.0 to 38.9 in adult, unspecified obesity type (HCC) Impaired fasting glucose Hepatic steatosis Other chronic nonalcoholic liver disease Multiple renal calculi documented in this encounter [facility] Author Codey Delvalle [facility] Note Date/Time October 11, 2024 11: 05am [facility] Medical Records Department [address] [place] [address] History & Physical Exam 10/11/24 1104 MR#: [id number] Acct: [id number] Name: CHAVEZBLACK PERAZAER Rep #:[id number] : 1995 28 From: Codey Keith PCP: DAVID HOBBS Status:[facility] Location: [place] [address] History and Physical Date of Admission: 10/11/24 Date of Service: 08/22/24 MR#: [id number] Acct: [id number] Name: BLACK CHAVEZ BOBY Rep #: [id number] : 1995 Provider: KLEBER Dozier Age/Sex: 28/M Location: [facility] Status: Signed Intake Vital Signs 08/14/2505:40 08/22/2512:20 Height 5 ft 11 in BP 151/74 H Blood Pressure Location Rt brachial Position Sitting Respiration 17 Pulse 97 Pulse Source Monitor Pulse Oximetry (%) 97 Oxygen Delivery Method room air Intake Visit Reasons: APPY 08-14 Chief Complaint: appy 08/14, colonoscopy Is patient in pain?: No Allergies hydromorphone (From Dilaudid) Allergy (Severe, Verified 08/22/24 13:21) Unknownpollen extracts Allergy (Severe, Verified 08/22/24 13:21) Unknown Medications ?Medication ?Instructions ?Recorded ?Confirmed ?Type rizatriptan 10 mg tablet (Maxalt) 10 mg PO ONCE PRN migraines 08/14/19 08/22/24 History acetaminophen 500 mg tablet 500 mg PO Q4H PRN PRN Pain Score 01/16/21 08/22/24 Rx 1-5/10 #0 tabs ibuprofen 200 mg tablet 400 mg (2 x 200 mg) PO Q6H PRN PRN 01/16/21 08/22/24 Rx Pain Score 4-10/10 #0 tabs carvedilol 25 mg tablet 25 mg PO BID #60 tabs 12/20/23 08/22/24 Rx amlodipine 10 mg tablet 10 mg PO DAILY #90 tabs 02/10/24 08/22/24 Rx lisinopril 10 mg tablet 10 mg PO DAILY #90 tabs 06/22/24 08/22/24 Rx PFSH Medical History (Updated 08/22/24 @ 13:20 by Niru Eisenberg) Wears contact lenses Alcohol use History of kidney stones Non-smoker Sleep apnea Cardiology follow-up encounter Hypersomnolence Essential hypertension Palpitations Seasonal allergies Migraines Surgical History (Updated 08/22/24 @ 12:53 by Niru Eisenberg) Status post laparoscopic appendectomy Hx of nasal septoplasty History of tonsillectomy (~2015) Family History Sister HypertensionBrother HypertensionMother Hypertension Heart diseaseFather Hypertension Social History Smoking Status: Never smoker alcohol intake: current alcohol intake frequency: a few times a month substance use type: does not use caffeine: Yes Type: coffee Number of servings: 1 HPI HPI Surgical H&P: Yes HPI: Patient is a 28 y/o M I am following s/p laparoscopic appendectomy by Dr. Delvalle on 08/14/24. Patient tolerated the procedure well. Patient denies any right lowerquadrant pain. He notes he had pain in the right lower quadrant intermittently for 3 years. He was always told this was kidney stone related. He notes since the procedure, he feels significantly improved. He denies any nausea, vomiting, fever. He notes appetite and bowel habits have returned to normal. Pathology demonstrated acute periappendicitis. No atypical cells or cancer cells. However, this pathology is more concerning for an inflammatory process suspicious for inflammatory bowel. He denies any bowel habits changes recently. He does note multiple bowel movements daily with lots of flatus production. He denies any rectal bleeding or melena. He notes his brother was worked up for bowel disease, which all returned as negative. he notes his sister was recently diagnosed with celiac disease. He states when he consumes beer, bread or other gluten-containing products, he notes an increase in bowel function to more loosestools. He denies any family history of colon cancer or inflammatory bowel disease. He denies any previous colonoscopy. He denies being on any blood thinners or weight loss medication. ROS General General: No weight change, appetite, fatigue, colon cancer, breast cancer or weakness HEENT HEENT: No difficulty swallowing, eye injury, eye surgery, swollen glands or hoarseness Endo Endocrine: No thyroid disease, diabetes mellitus, thyroid cancer, Hair loss, heat intolerance or cold intolerance Skin Skin: No rash or changing moles Musc Musculoskeletal: No back problems, arthritis, rheumatoid arthritis, gout or joint pain Cardio Cardiovascular: Yes high blood pressure; No murmur, pacemaker, heart disease, atrial fibrillation, heart attack, heart stent, palpitations, shortness of breat with exertion or chest pain Psych Psychiatric: No depression, anxiety or hearing voices Resp Respiratory: No shortness of breath, No sleep apnea, No cough, No COPD, No asthma, No emphysema and No wheezing Gastro Gastrointestinal: No abdominal pain, No nausea or vomiting, Yes diarrhea, No constipation, No blood in stool, No acid reflux, No hemorrhoids, No ulcers, No gallbladder problem and No black,tarry stools [place] Hematologic: No blood thinners, No blood disorders, No bleeding, No anemia and No blood clots Neuro Neurologic: No system reviewed and no additional complaints, except as documented, No as per HPI, No abnormal gait, No abnormal hearing, No abnormal movements, No abnormal speech, No behavioral changes, No burning sensations, No confusion, No convulsions, No disequilibrium, No dizziness, No localized weakness, No frequent falls, No headache(s), No lack of coordination, No loss ofvision, No memory loss, No numbness, No other visual disturbances, No radicular pain, No restless legs, No sensory deficit, No syncope, No tingling, No tremor(s), No weakness and No other Exam Const General: cooperative, healthy appearing, comfortable and no acute distress [facility] Head: normal to inspection Eyes General: appearance normal, both eyes and all related structures Neck Neck: normal visual inspection Neck mass: No Resp Effort & Inspection: normal respiratory effort Auscultation: clear to auscultation bilaterally Cardio Rate: regular rate Rhythm: regular rhythm GI Inspection: normal to inspection Palpation: soft Auscultation: normal bowel sounds Musc Cervical Spine: normal cervical lordosis Skin General: no rashes or lesions noted Neuro General: no focal motor deficits and CN's II-XI intact bilaterally Extrem General: normal to inspection Psych Appearance: grossly normal Affect: normal affect Assessment and Plan Assessment and Plan (1) Encounter for screening for malignant neoplasm of colon: Status: Acute Plan: Dr. Delvalle will plan to perform a colonoscopy with possible biopsies. Patient would like a biopsy for celiac disease if possible. Procedure details, risks andbenefits have been explained. Patient will proceed with a 2 day bowel prep. Patient has had the opportunity to ask and have questions answered. Patient verbally understands and agrees with the plan. (2) Status post laparoscopic appendectomy: Status: Acute Plan: Recommend no lifting greater than 20 pounds for 2 additional weeks May RTW next Tuesday Follow-up as needed I have examined the patient the following changes are noted: Patient [id number] status post laparoscopic appendectomy on 08/14/2024 with final pathology demonstrating just periappendiceal inflammation. He had also describes some erratic bowel habits leading up to the operation. With this I was concerned forpossible alter explanation for his symptoms and with final pathology this suspicion was confirmed. I thus recommended we follow-up his surgery with a formal colonoscopy and evaluation of his cecum and he presents for that procedure today. He provides an interval history that he is felt better in the interval since his surgery than he has in years. He denies any GI complaints. He confirms he completed prep for today's procedure and his output is now clear. Abdominal exam is benign. Will proceed to endoscopy suite for colonoscopy as planned. 10/11/24 1105 <Electronically signed by Codey Delvalle MD> Cosigner Signature (if applicable): CC: DAVID CORONADO; Dr. Codey Delvalle MD~ Signed [facility] Work Phone: Hospital Discharge instructions Additional Instructions Please advance your diet as tolerated. Use medications as needed. Continue to follow-up.[facility] Work Phone: Reason for referral (narrative)* Diagnostic Procedure Only (Routine) - Pending Review Specialty Diagnoses / Procedures Referred By Contac t Referred To Contact US IMAGING Diagnoses Acute abdominal pain in right lower quadrant Right upper quadrant abdominal pain Procedures US ABDOMEN COMPLETE US ABDOMINAL REAL TIME W/IMAGE DOCUMENTATION Laurie Coronado APRN.CNP [address] [place] [address] Us Imaging Referral ID Status Reason Start Date Expiration Date Visits Requested Visits Authorized [id number] Pending Review Auto-Generat ed Referral 08/27/2022 09/26/2023 1 1 [facility] for referral (narrative)* Diagnostic Procedure Only (Routine) - Pending Review Specialty Diagnoses / Procedures Referred By Liz avila Referred To Contact XR IMAGING Diagnoses Right flank pain Procedures XR ABDOMEN 3V KUB W/OBLIQUES RADIOLOGIC EXAM ABDOMEN 3+ VIEWS Laurie Coronado APRN.CNP [address] [place] [address] [place] [address] [place] [address] Referral ID Status Reason Start Date Expiration Date Visits Requested Visits Authorized [id number] Pending Review Auto-Generat ed Referral 06/09/2023 07/08/2024 1 1 [facility] for referral (narrative)No reason for referral information availableWKettering [facility] Work Phone: Summary Purpose Family History Relationship Condition Age at Onset Recorded Date/T richie sister Hypertension Unknown brother Hypertension Unknown mother Hypertension Unknown Cardiac disease Unknown father Hypertension Unknown Advance Directives Advance Directive Response Recorded Date/ Time Living Will No September 12, 023 10:41am Power of Crystal Growing Technician No September 12, 2022 10:41am Advance Directive Response Recorded Date/ Time Living Will No August 14 7:40am Power of Crystal Growing Technician No August 14, 2024 7:40am Living Will No October 08, 2024 2:27pm Power of Crystal Growing Technician No October 08 2:27pm Reason for Referral Specialty Diagnoses / Procedures Referred By Contac t Referred To Contact Dermatology Diagnoses Multiple nevi Procedures CONSULT TO DERMATOLOGY Laurie Coronado APRN.METAL BURNISHER [address] [place] [address] Aliyah Hawkins MD [address] [place] [address] Referral ID Status Reason Start Date Expiration Date Visits Requested Visits Authorized [id number] Ref Not Required PCP Requested Referral 2 09/14/2022 3 3 Chief Complaint and Reason for Visit Chief Complaint 6 M FU NAUSEA/VOMITING/DIARRHEA Reason for Visit Essential hypertensi on Palpitations Chief Complaint R31.29 Other microsc opic hematuria Chief Complaint Admit Date 6 M FU June 13, 2024 10:54am constipation and abdominal pain August 14, 2024 9:17am constipation and abdominal pain August 14, 2024 9:25am APPY 1-14 August 22, 2024 1 2:48pm Reason for Visit Admit Date Essential hypertension June 13 10:54am Palpitations June 13, 2024 10:54am Acute appendicitis August 14, 2024 9 :25am Encounter for screening for malignant ne oplasm of colon August 22, 2024 12:48pm Status post laparoscopic appendectomy [facility] 2024 12:48pm Additional Source Comments (unrecognized sect ion and content) No Status Records FoundNo Status Records FoundNo Status Records Found INFORMATION SOURCE (unrecogn ized section and content) DATE CREATED AUTHOR 11/15/2018 [facility] [place] DATE CREATED AUTHOR AUTHOR'S ORGANIZ ATION 09/20/2024 [facility] DATE CREATED AUTHOR AUTHOR'S ORGANIZ ATION 10/22/2024 [facility] Source Comments (unrecognize d section and content) In the event this informatio n is protected by the Federal Confidentiality of Alcohol and Drug Abuse Patient Records regulations: The Federal rules restrict any use of the information to criminally investigate or prosecute any alcohol or drug abuse patient.[facility] the event this information is protected by the Federal Confidentiality of Alcohol and Drug Abuse Patient Records regulations: The Federal rules restrict any use of the information to criminally investigate or prosecute any alcohol or drug abuse patient.[facility] the event this information is protected by the Federal Confidentiality of Alcohol and Drug Abuse Patient Records regulations: The Federal rules restrict any use of the information to criminally investigate or prosecute any alcohol or drug abuse patient.[facility] Hospital[facility] the event this information is protected by the Federal Confidentiality of Alcohol and Drug Abuse Patient Records regulations: The Federal rules restrict any use of the information to criminally investigate or prosecute any alcohol or drug abuse patient.[facility] Hospital[facility] the event this information is protected by the Federal Confidentiality of Alcohol and Drug Abuse Patient Records regulations: The Federal rules restrict any use of the information to criminally investigate or prosecute any alcohol or drug abuse patient.[facility] Hospital[facility] the event this information is protected by the Federal Confidentiality of Alcohol and Drug Abuse Patient Records regulations: The Federal rules restrict any use of the information to criminally investigate or prosecute any alcohol or drug abuse patient.[facility] Hospital[facility] the event this information is protected by the Federal Confidentiality of Alcohol and Drug Abuse Patient Records regulations: The Federal rules restrict any use of the information to criminally investigate or prosecute any alcohol or drug abuse patient.[facility] Hospital[facility] the event this information is protected by the Federal Confidentiality of Alcohol and Drug Abuse Patient Records regulations: The Federal rules restrict any use of the information to criminally investigate or prosecute any alcohol or drug abuse patient.[facility] Hospital[facility] the event this information is protected by the Federal Confidentiality of Alcohol and Drug Abuse Patient Records regulations: The Federal rules restrict any use of the information to criminally investigate or prosecute any alcohol or drug abuse patient.[facility] Hospital[facility] the event this information is protected by the Federal Confidentiality of Alcohol and Drug Abuse Patient Records regulations: The Federal rules restrict any use of the information to criminally investigate or prosecute any alcohol or drug abuse patient.[facility] Reason for Visit (unrecogniz ed section and content) Reason Comments Yearly Exam Specialty Diagnoses / Procedures Referred By Liz avila Referred To Contact Family Medicine / FAMILY MEDICINE Diagnoses Follow-up exam follow up Procedures OFFICE/OUTPATIENT ESTABLISHED HIGH MDM 40-54 MIN EST PATIENT Self Laurie Coronado, COMMERCIAL LOAN OFFICER.METAL BURNISHER [address] [address] Referral ID Status Reason Start Date Expiration Date V isits Requested Visits Authorized [id number] Authorized 06/03/2022 07/31/2022 99 99 Reason Comments Orders Reason Comments Established Patient Pt says pain started 08-08-22. Pain is pretty dull unless he's laying down or taking a deep breath. Sometimes tender to the touch along with sharpness. He has not seen gastro before. Reason Comments Refill Request Reason Comments Dr. Tank Bo Referral Reason Comments Knee Pain Black is here today to discuss his knee pain. Has been slowly getting worse over the last few years and has gotten to where he would rather not keep just bearing it. Mostly around the patella of the right knee.Sacha Trevizo 2024 8:06 AM Care Teams (unrecognized sec tion and content) Farm Equipment Engineer Relationship Specialty Start Date End Date Noling, Laurie L, COMMERCIAL LOAN OFFICER.METAL BURNISHER [address] [facility] [address] [place] [id number] PCP - General Family Medicine 06/16/22 Farm Equipment Engineer Relationship Specialty Start Date End Date Noling Laurie L, COMMERCIAL LOAN OFFICER.METAL BURNISHER [address] [facility] [facility] [address] [place] [phone] PCP - General Family Medicine 06/16/22 Farm Equipment Engineer Relationship Specialty Start Date End Date NolingLaurie L, COMMERCIAL LOAN OFFICER.METAL BURNISHER [address] [facility] [address] [place] [address] PCP - General Family Medicine 06/16/22 Team Status: Active Member Role Status Dates LAURIE COE Family Provider Active LAURIE CORONADO CORRECTION OFFICER-C Primary Care Provider Active Team Status: Inactive Member Role Status Dates Dr. Bruce Gastelum MD Attending Provider Activ e Team Status: Inactive Member Role Status Dates Dr. Temo Leyva DO Emergency Provider Active LAURIE CORONADO CORRECTION OFFICER-C Primary Care Provider Active Farm Equipment Engineer Relationship Specialty Start Date End Date Noling, Laurie L, COMMERCIAL LOAN OFFICER.METAL BURNISHER [address] [facility] [address] [place] [address] PCP - General Family Medicine 06/16/22 Farm Equipment Engineer Relationship Specialty Start Date End Date Noling, Laurie L, COMMERCIAL LOAN OFFICER.METAL BURNISHER [address] [facility] [address] [place] [address] PCP - General Family Medicine 06/16/22 Team Status: Inactive Member Role Status Dates LAURIE CORONADO CORRECTION OFFICER-C Primary Care Provide r, Attending Provider, Referring Provider Active Farm Equipment Engineer Relationship Specialty Start Date End Date Noling, Laurie L, COMMERCIAL LOAN OFFICER.METAL BURNISHER [address] [address] [place] [phone] PCP - [facility] Medicine 06/16/22 Team Status: Inactive Member Role Status Dates LAURIE NOANDREI , CORRECTION OFFICER-C Primary Care Provider Active Tina Tanner Attending Provider, Referring Provide r Active Team Status: Active Member Role Status Dates LAURIE CORONADO CORRECTION OFFICER-C Primary Care Provider Active Dr. Tank Bo MD Attending Provider, Referr ing Provider Active Team Status: Inactive Member Role Status Dates LAURIE CORONADO CORRECTION OFFICER-C Primary Care Provider Active Dr. Tank Bo MD Attending Provider, Referr ing Provider Active Farm Equipment Engineer Relationship Specialty Start Date End Date Noling, Laurie L, COMMERCIAL LOAN OFFICER.METAL BURNISHER [address] [place] [address] PCP - [facility] 06/16/22 Farm Equipment Engineer Relationship Specialty Start Date End Date Noling, Laurie L, COMMERCIAL LOAN OFFICER.METAL BURNISHER [address] [place] [phone] PCP - [facility] 06/16/22 Team Status: Active Member Role Status Dates LAURIE CORONADO , CORRECTION OFFICER-C Primary Care Provider Active Team Status: Inactive Member Role Status Dates LAURIE CORONADO , CORRECTION OFFICER-C Primary Care Provider Active Start: June 13, 2024 End: June 13, 2024 LAURIE CORONADO , CORRECTION OFFICER-C Referring Provider Active St art: June 13, 2024 End: June 13, 2024 Dr. Bruce Gastelum MD Attending Provider Activ e Start: June 13, 2024 End: June 13, 2024 Team Status: Active Member Role Status Dates LAURIE CORONADO , CORRECTION OFFICER-C Primary Care Provider Active Start: August 14, 2024 Dr. Tay Pinto MD Emergency Provider Active S tart: August 14, 2024 Dr. Codey Delvalle MD Attending Provider Active Start: August 14, 2024 Dr. Codey Delvalle MD Other Provider Active Sta rt: August 14, 2024 Team Status: Inactive Member Role Status Dates LAURIE CORONADO , CORRECTION OFFICER-C Primary Care Provider Active Start: August 14, 2024 End: August 14, 2024 Dr. Tay Pinto MD Emergency Provider Active S tart: August 14, 2024 End: August 14, 2024 Dr. Codey Delvalle MD Attending Provider Active Start: August 14, 2024 End: August 14, 2024 Team Status: Inactive Member Role Status Dates LAURIE NOANDREI , CORRECTION OFFICER-C Primary Care Provider Active Start: August 22, 2024 End: August 22, 2024 LAURIE NOLING , CORRECTION OFFICER-C Referring Provider Active St art: August 22, 2024 End: August 22, 2024 Thu PADILLA PA-C Attending Provider Active Start: August 22, 2024 End: August 22, 2024 Team Status: Inactive Member Role Status Dates LAURIE NOANDREI , CORRECTION OFFICER-C Primary Care Provider Active Start: October 11, 2024 End: October 11, 2024 LAURIE NOLING , CORRECTION OFFICER-C Referring Provider Active St art: October 11, 2024 End: October 11, 2024 Dr. Codey Delvalle MD Attending Provider Active Start: October 11, 2024 End: October 11, 2024 Team Status: Active Member Role Status Dates LAURIE NOLING , CORRECTION OFFICER-C Primary Care Provider Active Start: October 11, 2024 LAURIE NOANDREI , CORRECTION OFFICER-C Referring Provider Active St art: October 11, 2024 Dr. Codey Delvalle MD Attending Provider Active Start: October 11, 2024 Dr. Codey Delvalle MD Other Provider Active Sta rt: October 11, 2024 Goals (unrecognized section and content) Goals may be documented in a n alternate sectionGoals may be documented in an alternate sectionGoals may be documented in an alternate sectionGoals may be documented in an alternate section FOR RECORDS PERTAINING TO PATIENTS WHO ARE [...] BE BASED ON THE PRIMARY CLINICAL RECORDS. [employer] [facility]. provides no warranty or guarantee of the accuracy or completeness of information in this document.
[2025-04-13 08:46] LABS: Red Blood Cells-Urine 0 SEEN /hpf (0-5); Squamous Epithelial Cells - UA 0 SEEN /hpf (0-5)
[2025-04-13 08:47] LABS: Color, Urine Yellow (Yellow); Glucose, Dipstick Normal (Normal); Ketone-Dipstick Negative (Negative); Leukocyte Esterase-Dipstick Negative /ul (Negative); Nitrite-Dipstick Negative (Negative); Occult Blood-Urine 50 /ul (Negative); Protein-Dipstick 30 mg/dl (Negative); Specific Gravity, Urine 1.020 (1.002-1.030); Urine Bilirubin Dipstick Negative (Negative)
[2025-04-13] MEDS: 0.9% Normal Saline (1000mL) 1,000 ML 125 ML IV (08:49)
[2025-04-13 08:53] LABS: Mucous, Urine 1+ /hpf (<or=2+)
[2025-04-13 08:54] LABS: AST(SGOT) 25 U/L (<=37); Alanine Aminotransfer ALT/SGPT 54 U/L (<=46); Albumin, Serum 4.6 g/dL (3.5-5.0); Alkaline Phosphatase 70 U/L (40-129); Anion Gap 12 (5-15); BUN 13 mg/dL (4-19); BUN/Creat Ratio 16.4 RATIO (10-20); Calcium,Total 10.1 mg/dL (7.6-11.0); Carbon Dioxide 23.0 mmol/L (21.0-32.0); Chloride 104 mmol/L (98-108); Estimated Creatinine Clearance 185.12 ml/min (50-250); Globulin 2.9 g/dL (2.2-4.2); Glucose 108 mg/dL (70-99); Potassium 4.0 mmol/L (3.3-5.1)
[2025-04-13 10:04] VITALS: BP 124/78; PULSE 78; RESP 16; O2SAT 98
[2025-04-13 10:14] VITALS: BP 118/76; PULSE 64; RESP 18; TEMP 36.6; O2SAT 99
== END 2025-04-13 10:15 | disposition home or self-care (01) ==
PROVIDERS: Emergency Provider Emergency Medicine; PCP Nurse Practitioner Family; Visit Provider Emergency Medicine
DX: R10.31 Right lower quadrant pain (principal); I10 Essential (primary) hypertension; G47.30 Sleep apnea, unspecified; Z79.899 Other long term (current) drug therapy
CPT/HCPCS: 74177; 80053; 81001; 85025; 96360; 99283; Q9967; A4216

== ENCOUNTER → 2025-07-17 | Outpatient (CLI) | payer OTHER, SELFPAY ==
[2025-07-17 14:43] LABS: Ammonia 35.3 umol/L (16-60)
[2025-07-17 14:50] LABS: CPK Total, Creatine Kinase 169 U/L (24-195); Ferritin 131 ng/mL (37-417)
[2025-07-17 15:19] LABS: CRP 3.47 mg/L (0.0-3.0); Iron 68 ug/dL (65-175); Iron Binding Capacity,Total 350 ug/dL (250-450); Iron Binding Capacity,Unsat 282 ug/dL (228-428); LDH 218 U/L (87-241)
[2025-07-22 12:08] LABS: Anti-Chromatin <0.2 AI (0.0-0.9); Anti-Jo <0.2 AI (0.0-0.9); Anti-dsDNA Ab <1 IU/mL (0-9); SJOGREN'S Anti-SS-A test < 0.2 AI (0.0-0.9); SJOGREN'S Anti-SS-B test < 0.2 AI (0.0-0.9); Vitamin D 1,25-Dihydroxy 21.3 pg/mL (24.8-81.5)
[2025-07-27 15:08] LABS: ACCA 14 units (0-90); ALCA 7 units (0-60); AMCA 273 units (0-100); Albumin 4.6 g/dL (2.9-4.4); Angiotensin Convert Enzyme 20 U/L (14-82); Anti-Smooth Muscle ABS 6 Units (0-19); Copper, Serum or Plasma 92 ug/dL (63-121); Cytoplasmic Ab (C-ANCA) <1:20 titer (Neg:<1:20); Dopamine, Pl <10.0 pg/mL (0.0-36.7); Epinephrine, Pl 42.7 pg/mL (0.0-55.4); Gamma Globulin 0.8 g/dL (0.4-1.8); HEPATITIS B SURFACE AG Negative (Negative); Hep C Antibodies Non Reactive (Non Reactive); Immunoglobulin A 143 mg/dL (90-386); Immunoglobulin G 930 mg/dL (603-1613); Immunoglobulin M 89 mg/dL (20-172); Myoglobin, Serum 32 ng/mL (28-72); Myoglobin, Urine 2 ng/mL (0-13); Norepinephrine, Pl 392 pg/mL (115-524); PROEL- TOTAL PROTEIN 7.4 g/dL (6.0-8.5); Perinuclear Ab (P-ANCA) <1:20 titer (Neg:<1:20)
== END | disposition home or self-care (01) ==
PROVIDERS: PCP Nurse Practitioner Family; Referring Provider Internal Medicine Gastroenterology; Visit Provider Internal Medicine Gastroenterology
DX: R10.31 Right lower quadrant pain (principal)
CPT/HCPCS: 36415; 80074; 82085; 82140; 82164; 82384; 82390; 82525; 82550; 82652; 82728; 82784; 83036; 83516; 83540; 83550; 83615; 83874; 84165; 85652; 86036; 86037; 86140; 86225; 86235; 86334; 86671